=== PATIENT | female | born 1940 | race Caucasian/White ===

== ENCOUNTER 2023-12-10 14:38 | Outpatient (CLI) | payer MEDICARE, SELFPAY ==
--- NOTE | ~2023-12-10 | CT_ITS ---
EXAMINATION: CT abdomen pelvis w con DATE: 12/10/2023 15:33 INDICATION: Abnormal weight loss. Lower mid abdominal pain. Nausea. Constipation. TECHNIQUE: Computed tomography (CT) of the abdomen and pelvis was performed with 100 CC Omnipaque 350 intravenous contrast. Automated exposure control and iterative reconstruction technique were employe d. Exam dose: 225.43 mGy-cm total exam DLP. COMPARISON: None. FINDINGS: Status post sternotomy. The lung bases are clear of infiltrate or consolidation. Heart size is within normal limits. Moderate sliding hiatal hernia There is mild intrahepatic and extrahepatic bile duct dilatation likely secondary to cholecystectomy. No hepatic space-occupying mass lesion. No pancreatic duct dilatation or pancreatic mass lesion or calcification is detected. Multiple splenic calcified granulomas. No splenomegaly. 8 mm upper pole left renal cyst. Scattered right renal cysts, largest exophytic at the posterior upper pole, measuring up to 2 cm. Nonobstructing lower pole left renal approximately 3.8 mm calculus. No ureteral calculus or hydroneph rosis is noted on either side. There are calcified uterine fibroids. There is extensive atherosclerotic calcification but no aneurysm of the abdominal aorta and iliac art eries. No intraperitoneal or retroperitoneal or pelvic mass lesion or adenopathy or ascites. Normal appendix. Diverticulosis of the colon; no CT evidence of diverticulitis. There is a prominent amount of fecal m aterial in the rectosigmoid area. There is fluid within multiple nondilated small bowel segments, with small bowel air-fluid levels. Degenerative changes of the thoracic and lumbar spine including multilevel severe degenerative disc d isease of the lumbar spine, with fusion and the vertebral bodies at L4-5. IMPRESSION: Nondilated fluid containing small bowel segments and small bowel air-fluid levels, possi rubina due to enteritis or mild adynamic ileus No bowel obstruction or free air Status post cholecystectomy Nonobstructing lower pole left renal calculus Bilateral renal cysts Uterine fibroids Prominent amount of fecal material in the rectum and colon Normal appendix Moderate sliding hiatal hernia Reviewed, dictated and finalized at [facility]. Reviewed, dictated and finalized at [facility]. [employer] OFFICER IMPRESSION: Nondilated fluid containing small bowel segments and small bowel a ir-fluid levels, possibly due to enteritis or mild adynamic ileus No bowel obstruction or free air Status post cholecystectomy Nonobstructing lower pole left renal calculus Bilateral renal cysts Uterine fibroids Prominent amount of fecal material in the rectum and colon Normal appendix Moderate sliding hiatal hernia
[2023-12-10 15:21] LABS: Estimated Glomerular Filt Rate 48
== END 2023-12-10 14:39 | disposition home or self-care (01) ==
PROVIDERS: PCP Internal Medicine; Visit Provider Nurse Practitioner Family
DX: N20.0 Calculus of kidney (principal); N28.1 Cyst of kidney, acquired; Z90.49 Acquired absence of other specified parts of digestive tract; D25.9 Leiomyoma of uterus, unspecified; K44.9 Diaphragmatic hernia without obstruction or gangrene
CPT/HCPCS: 74177; Q9967

== ENCOUNTER 2024-01-17 14:53 | Outpatient (CLI) | payer MEDICARE, SELFPAY ==
--- NOTE | ~2024-01-17 | XR_ITS ---
XR chest 2V 01/17/2024 15:19 Indication: Abnormal weight loss Procedure: 2 view chest Comparison: No prior studies for comparison. Findings: Status post median sternotomy for CABG. Heart size normal. No focal air space disease, pulm onary edema, pleural effusion or suspected pneumothorax. There is atherosclerosis of the aorta. There are cholecystectomy clips. There is scoliosis. Impression: 1: No acute cardiopulmonary disease. Reviewed, dictated and finalized at [facility]. PHOTOGRAPHER Impression: 1: No acute cardiopulmonary disease.
[2024-01-17 15:33] LABS: Hematocrit 38.3 % (37.0-47.0); Hemoglobin 12.1 g/dL (12.0-15.0); Mean Corpuscular HGB Conc 31.6 g/dl (32-36); Mean Corpuscular Hemoglobin 31.8 pg (26-34); Mean Corpuscular Volume 100.5 fl (80-100); Mean Platelet Volume 8.6 fl (7.4-10.4); Platelet Count Result 376 k/mm3 (150-375); Red Blood Count 3.81 M/mm3 (4.2-5.4); Red Cell Distribution Width 13.2 % (11.5-14.5); White Blood Count 6.4 K/mm3 (4.5-10.0)
[2024-01-17 15:49] LABS: Alanine Aminotransferase 14 U/L (6-35); Albumin Level 2.8 g/dL (3.5-5.1); Alkaline Phosphatase 87 U/L (38-126); Anion Gap 2 mmol/L (8-16); Aspartate Amino Transferase 30 U/L (14-36); Bilirubin,Total 0.5 mg/dL (0.2-1.3); Blood Urea Nitrogen 20 mg/dL (7-17); Calcium 8.7 mg/dL (8.4-10.2); Carbon Dioxide 30 mmol/L (22-30); Chloride 104 mmol/L (98-107); Estimated Glomerular Filt Rate > 60; Glucose 155 mg/dL (65-110); Potassium 3.4 mmol/L (3.4-5.0); Sodium 136 mmol/L (137-145)
[2024-01-17 16:01] LABS: Erythrocyte Sedimentation Rate 23 mm/hr (0-20)
== END 2024-01-17 14:54 | disposition home or self-care (01) ==
PROVIDERS: PCP Internal Medicine; Visit Provider Nurse Practitioner Family
DX: R63.4 Abnormal weight loss (principal)
CPT/HCPCS: 36415; 71046; 80053; 84443; 85027; 85652; 86140

== ENCOUNTER 2024-02-06 08:42 | Day surgery (SDC) | payer MEDICARE, SELFPAY ==
[2024-01-27 08:09] VITALS: BMI 21.4
[2024-01-27 11:42] VITALS: BMI 23.7
[2024-02-06 11:04] VITALS: BP 104/58; PULSE 77; RESP 20; TEMP 36.1; O2SAT 100
[2024-02-06] MEDS: LACTATED RINGERS 1,000 ML 150 ML IV CONT (11:17)
[2024-02-06 11:23] LABS: Glucose Point of Care 82 mg/dl (65-105)
--- NOTE | 2024-02-06 11:24 | WPDHPUPDATE1 ---
History and Physical Update Update Date/Time: 02/06/24 11:24 In use to have a very difficult history. She states that she vomits on some occasions also complete reports difficulty swallowing. It is difficult to know if food actually makes it to her stomach. Previous endoscopy apparently was performed because of a hiatal hernia. A questionable history of hiatal hernia repair surgically in the past. Plan for EGD continue trial of medications as outlined in the GI office. Further recommendations after endoscopy. History and Physical has been reviewed, including an updated exam of the patient. There are NO changes in the patient's condition. Risks, benefits, and alternatives have been discussed and questions answered. Patient agrees to proceed with procedure.
--- NOTE | 2024-02-06 11:41 | WPDANESEPPF ---
Anes - Initial Pre Proc Eval Procedure: Operation Date: 02/06/24 12:00 Proposed Procedures p Esophagogastroduodenoscopy - Dawson Parmar MD Date/Time: 02/06/24 11:41 Surgeon: Dawson Parmar MD Pre Op Diagnosis: Vomitting,unspecified,abnormal weight loss Patient Data Age: 83 Gender: F Height: 1.42 m Weight: 46.2 kg Last Vital Signs Temp 36.1 C L 02/06/24 11:04 Pulse 77 02/06/24 11:04 Resp 20 02/06/24 11:04 BP 104/58 L 02/06/24 11:04 Pulse Ox 100 02/06/24 11:04 O2 Del Method Room Air 02/06/24 11:04 Allergies Allergy/AdvReac Type Severity Reaction Status Date / Time No Known Allergies Allergy Verified 02/06/24 11:03 Home Medications Medication Instructions Recorded Confirmed Type aspirin 81 mg tablet,delayed 81 mg PO DAILY 11/28/23 02/06/24 History release (Adult Aspirin Regimen) gabapentin 100 mg capsule 100 mg PO BID 11/28/23 02/06/24 History (Neurontin) multivitamin 1 tablet PO DAILY 11/28/23 02/06/24 History omega-3 fatty acids-fish oil 360 1 cap PO DAILY 11/28/23 02/06/24 History mg-1,200 mg capsule (Fish Oil) pramipexole 0.125 mg tablet 0.125 mg PO BID 11/28/23 02/06/24 History (Mirapex) spironolactone 25 mg tablet 25 mg PO DAILY 11/28/23 02/06/24 History vitamin A-vitamin C-vitamin E 1 tablet PO DAILY 11/28/23 02/06/24 History omeprazole 40 mg capsule,delayed 40 mg PO BID 1 month #60 caps 01/20/24 02/06/24 Rx release potassium chloride 20 mEq 20 meq PO BID 01/27/24 02/06/24 History tablet,extended release Laboratory Tests 02/06/24 11:21 POC Capillary Glucose 82 mg/dl (65-105) Patient hx anesthesia problems: none Family hx anesthesia problems: none Results Review: All pre-operative results and documents have been reviewed as part of the pre-operative evaluation. [facility] Past Medical History Medical History Gastroparesis GERD (gastroesophageal reflux disease) HTN (hypertension) Vomiting Weight loss Social History Social History Smoking status: Never smoker Alcohol intake: never Substance use: never Substance use type: does not use Living arrangements: alone Spiritual care concerns: No Anes - Eval Final PreProcedure Day of Procedure 02/06/24 11:41 Patient weight: thin Heart: regular rate and rhythm Lungs: clear to auscultation Neurological: alert and oriented Last oral intake: >/= 8 hours ASA classification: III Emergent: no Anesthetic plan: proceed Anesthesia type and monitoring: general GIVS and standard monitoring Results Review: All pre-operative results and documents have been reviewed as part of the pre-operative evaluation. Informed Consent: The patient's anesthetic plan and its attendant risks and benefits were discussed with the patient/family/POA. Questions were solicited and answers provided to the satisfaction of the patient/family/POA.
[2024-02-06 13:13] VITALS: BP 87/52; PULSE 80; RESP 18; O2SAT 93
[2024-02-06 13:23] VITALS: BP 108/62; PULSE 87; RESP 18; O2SAT 93
--- NOTE | 2024-02-06 13:27 | WPDANESPN ---
Anes - Prog Note Post-Op Date/Time: 02/06/24 13:27 Cardiovascular status: normal Respiratory status: normal Airway patency: baseline Mental status: baseline Post-Op hydration status: normal Vital Signs: Last Vital Signs Temp 36.1 C L 02/06/24 11:04 Pulse 87 02/06/24 13:23 Resp 18 02/06/24 13:23 BP 108/62 02/06/24 13:23 Pulse Ox 93 02/06/24 13:23 O2 Del Method Room Air 02/06/24 13:23 Pain Score (VAS): 0 I/O: Intake & Output 02/05/24 02/06/24 02/06/24 23:59 07:59 15:59 Intake Total 300 Balance 300 02/06/24 11:21 POC Capillary Glucose 82 Patient Feedback: Patient satisfied with anesthetic care.
[2024-02-06 13:33] VITALS: BP 117/69; PULSE 94; RESP 20; O2SAT 94
== END 2024-02-06 13:48 | disposition home or self-care (01) ==
PROVIDERS: PCP Internal Medicine; Visit Provider Internal Medicine Gastroenterology
PROC: 0DJ08ZZ Inspection of Upper Intestinal Tract, Via Natural or Artificial Opening Endoscopic (ICD-10-PCS; CPT 43235; principal; 2024-02-06 12:00)
DX: K31.84 Gastroparesis (principal); R11.10 Vomiting, unspecified; K21.9 Gastro-esophageal reflux disease without esophagitis; R13.19 Other dysphagia
CPT/HCPCS: 43235

== ENCOUNTER 2025-03-17 16:38 | Outpatient (CLI) | payer MEDICARE, SELFPAY ==
--- NOTE | ~2025-03-17 | XR_ITS ---
Exam: Abdomen 1V HISTORY: R19.7 - Diarrhea, unspecified COMPARISON: Reference is made to a CT examination of the abdomen and pelvis dated 12/10/2023 TECHNIQUE: Supine images of the abdomen FINDINGS: Bowel gas pattern is nonspecific and non-obstructive. There is no free air or deep sulci. No pathologic calcifications are seen. Lung bases are unremarkable. Degenerative disease within the lower lumbar spine. Clips within the right upper quadrant. Fecal stasis within the descending colon. IMPRESSION: Nonspecific, nonobstructive bowel gas pattern. Reviewed, dictated and finalized at location A.
--- OUTSIDE RECORDS SUMMARY | 2025-03-17 17:43 | XMS_ITS | Data Portability ---
Author Organization [facility], Main Office Address [address] [place] [address] Care Team Providers Care Orthopedic Nurse Practitioner Name Role Phone DONOVAN CARDENAS Primary Care Provider [phone] DONOVAN CARDENAS Referring Provider Assessment Encounter Date Assessment Date Assessment LastModified by Organization Details LastModified Time 09/02/2024 09/02/2024 This note is dictated and transcribed by [employer]. Cleaner Assistant variances may occur. Despite proofreading, typographical errors may occur. Occasional wrong-word or 'wtxav-u-[id number]' substitutions may have occurred due to the inherent limitations of voice recording. Read the chart carefully and recognize, using context, where substitutions have occurred. Not available 09/10/2024 09:49:21 09/09/2024 09/09/2024 This note is dictated and transcribed by [employer]. Cleaner Assistant variances may occur. Despite proofreading, typographical errors may occur. Occasional wrong-word or 'mwfjo-c-zmmf' substitutions may have occurred due to the inherent limitations of voice recording. Read the chart carefully and recognize, using context, where substitutions have occurred. Not available 09/10/2024 09:44:39 09/16/2024 09/16/2024 This note is dictated and transcribed by [employer]. Cleaner Assistant variances may occur. Despite proofreading, typographical errors may occur. Occasional wrong-word or 'tutgs-t-sjth' substitutions may have occurred due to the inherent limitations of voice recording. Read the chart carefully and recognize, using context, where substitutions have occurred. Not available 09/26/2024 15:12:45 Plan of Treatment Reminders Order Date Submit Date Provider Last Modified By Organization Details Last Modified Time Details Appointments None recorded. Lab magnesium, serum or plasma 2024 025 [id number] [facility], [address] [place], [address], 5 17:16:14 vitamin B12, serum 2024 025 [id number] [facility], [address] [place], [address], 5 17:16:14 lipid panel, serum 2024 025 [email or web address] [facility], [address] [place], [address], 5 17:16:13 CMP, serum or plasma 2024 025 [id number] [facility], [address] [place], [address], 5 17:16:13 TSH, serum or plasma 2024 025 [email or web address] [facility], [address] [place], [address], 5 17:16:14 T4, free, serum 2024 025 [facility], [address] [place], [address], 5 17:16:14 CBC w/ auto diff 2024 025 [email or web address] [facility], [address] [place], [address], 5 17:16:14 Referral None recorded. Procedures None recorded. Surgeries None recorded. Imaging None recorded. Medication Orders cephalexin 500 mg capsule [email or web address] [place] [address] Pharm[facility], [address] [place], [address], 14:19:08 Patient TargetsNo targets recorded. Patient Instructions Encounter Date Encounter Id Patient Instructions Last Modified By Organization Details Last Modified Time 08/31/2024 [id number] Follow-up an ry artery disease, hypertension, hyperlipidemia, peripheral vascular disease, type 2 diabetes all clinically stable. Also has a laceration on her left arm is some avulsion of the skin as result of an animal scratch. No signs of any surrounding infection at this time. Denies any history of any fever or chills. Will cover with some cephalexin 500 mg t.i.d. For seven days. Follow Up: 4 Months Approximate Date: 12/29/2024 Portions of the record may have been created with voice recognition software. Occasional wrong-word or cehoz-t-nyan substitutions may have occurred due to the inherent limitations of voice recognition software. Read the chart carefully and recognize, using context, where substitutions have occurred. [email or web address] Not available 08/31/2024 17:00:38 01/04/2025 [id number] Coronary artery disease, essential hypertension, hyperlipidemia, GERD all clinically stable. Will check some baseline blood work including a CBC, CMP, lipid, vitamin B12 and magnesium level. Continue on current Rx. Did instruct patient to consider taking some Imodium for some intermittent diarrhea. Is clinically stable otherwise. Follow-up in four months Follow Up: 4 Months Approximate Date: 05/04/2025 Portions of record are template driven. When necessary additional context will be provided. Additionally some portions have been created with voice recognition software. Occasional wrong-word or [id number]-l-[id number] substitutions may have occurred due to the inherent limitations of voice recognition software. Read the chart carefully and recognize, using context, where substitutions may have occurred. Created: Donovan Cardenas M.D. 01.04.2025 04:04 Not available 01/04/2025 17:05:24 Reason for Referral None Reported. Results Created Date Observation Date Name Description Value Unit Range Abnormal Flag Note LastModifiedBy Organization Detail LastModifiedTime 01/22/20 25 01/22/2025 CBC/C OMPLE TE BLD COUNT W/DIF F white blood cells 9.6 x10'3 /uL 4.2-[address] [facility] (Lab) [address] [place], [address], 01/22/2025 16:46:39 01/22/20 25 01/22/2025 CBC/C OMPLE TE BLD COUNT W/DIF F red blood cells 4.00 x10'6 /uL 3.80-[address] [facility] (Lab) [address] [place], [address], 01/22/2025 16:46:39 01/22/20 25 01/22/2025 CBC/C OMPLE TE BLD COUNT W/DIF F hemoglobin 13.1 g/dL 12.0-[address] [facility] (Lab) [address] [place], [address], 01/22/2025 16:46:39 01/22/20 25 01/22/2025 CBC/C OMPLE TE BLD COUNT W/DIF F hematocrit 40.0 % 35.7-[address] [facility] (Lab) [address] [place], [address], 01/22/2025 16:46:39 01/22/20 25 01/22/2025 CBC/C OMPLE TE BLD COUNT W/DIF F mean red cell volume 100.0 fL 82.0-9 [address] [facility] (Lab) [address] [place], [address], 01/22/2025 16:46:39 01/22/20 25 01/22/2025 CBC/C OMPLE TE BLD COUNT W/DIF F mean red cell hemoglobin 32.8 pg 27.0-[address] [facility] (Lab) [address] [place], [address], 01/22/2025 16:46:39 01/22/20 25 01/22/2025 CBC/C OMPLE TE BLD COUNT W/DIF F mean RBC HGB concentratio n 32.8 g/dL 31.0-[address] [facility] (Lab) [address] [place], [address], 01/22/2025 16:46:39 01/22/20 25 01/22/2025 CBC/C OMPLE TE BLD COUNT W/DIF F red cell distribution width 14.0 % 11.8-[address] [facility] (Lab[facility] [address] [facility] [place], [address], 01/22/2025 16:46:39 01/22/20 25 01/22/2025 CBC/C OMPLE TE BLD COUNT W/DIF F platelets 291 x10'3 /uL 150-[address] [facility] (Lab) [address] [facility] [place], [address], 01/22/2025 16:46:39 01/22/20 25 01/22/2025 CBC/C OMPLE TE BLD COUNT W/DIF F mean platelet volume 9.2 fL 9.0-[address] [facility] (Lab) [address] [place], [address], 01/22/2025 16:46:39 01/22/20 25 01/22/2025 CBC/C OMPLE TE BLD COUNT W/DIF F neutrophils 63.7 % 39.0-[address] [facility] (Lab) [address] [place], [address], 01/22/2025 16:46:39 01/22/20 25 01/22/2025 CBC/C OMPLE TE BLD COUNT W/DIF F lymphocytes 27.4 % 16.0-[address] [facility] (Lab) [address] [place], [address], 01/22/2025 16:46:39 01/22/20 25 01/22/2025 CBC/C OMPLE TE BLD COUNT W/DIF F monocytes 6.7 % 5.0-[address] [facility] (Lab) [address] [place], [address], 01/22/2025 16:46:39 01/22/20 25 01/22/2025 CBC/C OMPLE TE BLD COUNT W/DIF F eosinophils 0.9 % 1.0-7. [address] [facility] (Lab) [address] [place], [address], 01/22/2025 16:46:39 01/22/20 25 01/22/2025 CBC/C OMPLE TE BLD COUNT W/DIF F basophils 0.6 % 0.0-2. [address] [facility] (Lab) [address] [place], [address], 01/22/2025 16:46:39 01/22/20 25 01/22/2025 CBC/C OMPLE TE BLD COUNT W/DIF F immature granulocytes 0.7 % 0.00-0 [address] [facility] (Lab) [address] [place], [address], 01/22/2025 16:46:39 01/22/20 25 01/22/2025 CBC/C OMPLE TE BLD COUNT W/DIF F neutrophils, absolute count 6.09 x10'3 /uL 1.5-8. [address] [facility] (Lab) [address] [place], [address], 01/22/2025 16:46:39 01/22/20 25 01/22/2025 CBC/C OMPLE TE BLD COUNT W/DIF F lymphocytes, absolute count 2.62 x10'3 /uL 1.07-[address] [facility] (Lab) [address] [place], [address], 01/22/2025 16:46:39 01/22/20 25 01/22/2025 CBC/C OMPLE TE BLD COUNT W/DIF F monocytes, absolute count 0.64 x10'3 /uL 0.29-[address] [facility] (Lab) [address] [place], [address], 01/22/2025 16:46:39 01/22/20 25 01/22/2025 CBC/C OMPLE TE BLD COUNT W/DIF F eosinophils, absolute count 0.09 x10'3 /uL 0.02-[address] [facility] (Lab) [address] [place], [address], 01/22/2025 16:46:39 01/22/20 25 01/22/2025 CBC/C OMPLE TE BLD COUNT W/DIF F basophils, absolute count 0.06 x10'3 /uL 0.01-[address] [facility] (Lab) [address] [place], [address], 01/22/2025 16:46:39 01/22/20 25 01/22/2025 CBC/C OMPLE TE BLD COUNT W/DIF F immature granulocytes ,absolute 0.07 x10'3 /uL 0.00-0 [address] [facility] (Lab) [address] [place], [address], 01/22/2025 16:46:39 01/22/20 25 01/22/2025 CBC/C OMPLE TE BLD COUNT W/DIF F nucleated red blood cells 0.0 % -0 Not Available [facility] (Lab) [address] [place], [address], 01/22/2025 16:46:39 01/22/20 25 01/22/2025 CBC/C OMPLE TE BLD COUNT W/DIF F NRBC# 0.00 x10'3 /uL Not Available [facility] (Lab) [address] [place], [address], 01/22/2025 16:46:39 01/22/20 25 01/22/2025 LIPID PANEL cholesterol 129 mg/dL 140-19 9 low NIH HUBER NSUS RECOM MENDA TION FOR BELIA STERO L: ADULT CHILD LOW RISK: <200 <170 BORDE RLINE : <200- 239 ----- HIGH RISK: >240 >200 Not Available [facility] (Lab) [address] [place], [address], 01/22/2025 17:05:40 01/22/20 25 01/22/2025 LIPID PANEL triglyceride s 194 mg/dL 0-150 high NIH HUBER NSUS REPOR T RECOM MENDA TION FOR TRIGL YCERI ESTRELLITA: ADULT CHILD LOW RISK: <150 ----- BODER LINE: 150-1 99 ----- HIGH RISK: >200 ----- Not [address] [facility] (Lab) [address] [place], [address], 01/22/2025 17:05:40 01/22/20 25 01/22/2025 LIPID PANEL HDL cholesterol 35 mg/dL 40- low Not Available [facility] (Lab) [address] [place], [address], 01/22/2025 17:05:40 01/22/20 25 01/22/2025 LIPID PANEL LDL cholesterol, calculated 55 mg/dL 0-130 NIH HUBER NSUS REPOR T RECOM MENDA TIONS FOR LDL: ADULT CHILD LOW RISK <130 <110 (OPTI MAL LDL) <100 ----- BORDE RLINE : 130-1 59 ----- HIGH RISK: >160 >130 A TRIGL YCERI DE RESUL T >400 INVAL IDATE S THE CALCU LATIO N FOR LDL FRACT IONAT ION - THE LDL RESUL T WILL NOT BE REPOR CURTIS. Not Available [facility] (Lab) [address] [place], [address], 01/22/2025 17:05:40 01/22/20 25 01/22/2025 COMPR EHENS APARNA METAB OLIC PANEL sodium 136 mmol/ L 137-14 5 low Not Available [facility] (Lab) [address] [place], [address], 01/22/2025 17:05:46 01/22/20 25 01/22/2025 COMPR EHENS APARNA METAB OLIC PANEL potassium 4.2 mmol/ L 3.5-5. 1 Not Available [facility] (Lab) [address] [place], [address], 01/22/2025 17:05:46 01/22/20 25 01/22/2025 COMPR EHENS APARNA METAB OLIC PANEL chloride 104 mmol/ L 98-[address] [facility] (Lab) [address] [place], [address], 01/22/2025 17:05:46 01/22/20 25 01/22/2025 COMPR EHENS APARNA METAB OLIC PANEL carbon dioxide 28 mmol/ L 22-30 Not Available [facility] (Lab) [address] [place], [address], 01/22/2025 17:05:46 01/22/20 25 01/22/2025 COMPR EHENS APARNA METAB OLIC PANEL anion gap 8.2 mmol/ L 14-22 low Not Available [facility] (Lab) [address] [place], [address], 01/22/2025 17:05:46 01/22/20 25 01/22/2025 COMPR EHENS APARNA METAB OLIC PANEL glucose 81 mg/dL 70-[address] [facility] (Lab) [address] [place], [address], 01/22/2025 17:05:46 01/22/20 25 01/22/2025 COMPR EHENS APARNA METAB OLIC PANEL BUN 20 mg/dL 8-[address] [facility] (Lab) [address] [place], [address], 01/22/2025 17:05:46 01/22/20 25 01/22/2025 COMPR EHENS APARNA METAB OLIC PANEL creatinine 0.75 mg/dL 0.66-[address] [facility] (Lab) [address] [place], [address], 01/22/2025 17:05:46 01/22/20 25 01/22/2025 COMPR EHENS APARNA METAB OLIC PANEL GFR >60 Refer ence Range : [place] ge GFR Healt hy Adult : >60 mL/mi n/1.7 3 m2 Chron ic Kidne y Disea se: 15-60 mL/mi n/1.7 3 m2 Kidne y Failu re: <15/m L/min /1.73 m2 www.n iddk. nih.g ov The MDRD study equat ion has not been valid ated in child reinier <18 years of age; pregn ant women ; the elder ly >85 years of age; or in some racia l or ethni c subgr oups, such as [employer]. Outsi de the valid ated chadwick eters , estim ated GFR is less accur ate, requi ring clini balbir judgm ent on a case- by-ca se basis . Clini balbir inter preta tion for other races and ages must be made by the clini ruiz. The MDRD study equat ion has not been valid ated for the evalu ation of serum creat inine relat ed to nutri dawn l statu s or medic ation usage . For perso ns <18 years of age, a pedia tric GFR calcu lator is avail able on the F websi te: https ://ww w.kid alvin.o rg/pr ofess ional s/kdo qi/gf r_cal culat or Not Available [facility] (Lab) [address] [place], [address], 01/22/2025 17:05:46 01/22/20 25 01/22/2025 COMPR EHENS APARNA METAB OLIC PANEL alkaline phosphatase 88 U/L 38-126 Not Available [facility] (Lab) [address] [place], [address], 01/22/2025 17:05:46 01/22/20 25 01/22/2025 COMPR EHENS APARNA METAB OLIC PANEL alanine aminotransfe rase 16 U/L 0-35 Not Available [facility] (Lab) [address] [place], [address], 01/22/2025 17:05:46 01/22/20 25 01/22/2025 COMPR EHENS APARNA METAB OLIC PANEL aspartate aminotransfe rase 26 U/L 15-37 Not Available [facility] (Lab) [address] [place], [address], 01/22/2025 17:05:46 01/22/20 25 01/22/2025 COMPR EHENS APARNA METAB OLIC PANEL bilirubin, total 1.20 mg/dL 0.20-[address] [facility] (Lab) [address] [place], [address], 01/22/2025 17:05:46 01/22/20 25 01/22/2025 COMPR EHENS APARNA METAB OLIC PANEL calcium 9.3 mg/dL 8.4-[address] [facility] (Lab) [address] [place], [address], 01/22/2025 17:05:46 01/22/20 25 01/22/2025 COMPR EHENS APARNA METAB OLIC PANEL total protein 5.9 g/dL 6.3-8. [address] [facility] (Lab) [address] [place], [address], 01/22/2025 17:05:46 01/22/20 25 01/22/2025 COMPR EHENS APARNA METAB OLIC PANEL albumin 3.3 g/dL 3.0-4. [address] [facility] (Lab) [address] [place], [address], 01/22/2025 17:05:46 01/22/20 25 01/22/2025 COMPR EHENS APARNA METAB OLIC PANEL globulin 2.6 g/dL 2.6-4. [address] [facility] (Lab) [address] [place], [address], 01/22/2025 17:05:46 01/22/20 25 01/22/2025 COMPR EHENS APARNA METAB OLIC PANEL A/G ratio 1.3 ratio 1.0-2. [address] [facility] (Lab) [address] [place], [address], 01/22/2025 17:05:46 01/22/20 25 01/22/2025 MAGNE SIUM magnesium 1.4 mg/dL 1.6-2. [address] [facility] (Lab) [address] [place], [address], 01/22/2025 17:05:48 01/22/20 25 01/22/2025 T4 FREE free T4 0.89 NG/dL 0.78-[address] [facility] (Lab) [address] [place], [address], 01/22/2025 17:41:36 01/22/20 25 01/22/2025 TSH thyroid-stim ulating hormone 0.700 uIU/m L 0.465- 4.[address] [facility] (Lab) [address] [place], [address], 01/22/2025 17:56:33 01/22/20 25 01/22/2025 VITAM IN B12 (SHIVAM LASHON ) vb12 513 pg/mL 239-[address] [facility] (Lab) [address] [place], [address], 01/22/2025 18:18:47 Result Notes None recorded. Problems Name Problem SNOMED Code Status Onset Date Resolution Date Notes Provider Name and Address Organization Details Recorded Time Renewal of prescript ion Active 2021 Not Available [facility] 3 00:01:24 Hyperchol esterolem ia 81112487 Active Not Available [facility] 3 00:01:24 Nausea and vomiting 86791218 Active 2021 Not Available [facility] 3 00:01:24 Senile osteoporo sis 24433400 Active 2022 Not Available [facility] 3 00:01:24 Gastroeso phageal reflux disease 614555174 Active Not Available [facility] 3 00:01:24 Type 2 diabetes mellitus without complicat ion 681318044 Active 2021 Not Available [facility] 3 00:01:24 Restless legs 75714652 Active Not Available [facility] 3 00:01:24 Osteoarth ritis 014083433 Active Not Available [facility] 3 00:01:24 Periphera l vascular disease 804134381 Active Not Available [facility] 3 00:01:24 Nausea 956402228 Active 2021 Not Available [facility] 3 00:01:24 Type 2 diabetes mellitus 31898568 Active Not Available [facility] 3 00:01:24 Achalasia of esophagus 84308674 Active Not Available [facility] 3 00:01:24 Pain of right knee joint 88000897513 4100 Active 2021 Not Available [facility] 3 00:01:24 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 33645298 Active 2018 Not Available [facility] 3 00:01:24 Coronary arteriosc lerosis 18448117 Active Not Available [facility] 3 00:01:24 Essential hypertens ion 11926870 Active 2022 Not Available [facility] 3 00:01:24 Osteoporo sis 94739932 Active 2022 Not Available [facility] 3 00:01:24 Diabetes mellitus 45959641 Completed Not Available [facility] 3 14:49:48 Diabetes mellitus without complicat ion 519748425 Active 2022 Not Available [facility] 3 00:01:24 Heart disease 69814644 Active 2023 Karolyn watters, [facility] [employer] [facility] 4 16:23:06 Sleep disorder 38877743 Active 2023 Karolyn watters, [facility] [employer] [facility] 4 16:23:20 Pain in both feet 62905269214 875305 Active 2023 Demetrius Negron DPM [address], [address], [place], [address] , [facility] [employer] [facility] 4 17:07:49 Bunion 309927428 Active 2023 Demetrius Negron DPM [address], [address], [place], [address] , [facility] [employer] [facility] 4 17:07:56 Periphera l arterial occlusive disease 249560577 Active 2023 Demetrius Negron DPM [address], [address], [place], [address] , [facility] [employer] [facility] 4 17:08:05 Ulcer of toe 075292435 Active 2023 Demetrius Negron DPM [address], [address], [place], [address] , [facility] [employer] 4 17:13:41 Dystrophi a unguium 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 Active 2023 Demetrius Negron DPM [address], [address], [place], [address] , [facility] [employer] [facility] 4 17:15:25 Bunion 490150827 Active 2023 Demetrius Negron DPM [address], [address], [place], [address] , [facility] [employer] [facility] 4 17:13:50 Celluliti s of left lower limb 38382264781 690645 Active 2023 Donovan Cardenas MD [address], [address], [place], [address] , [facility] 4 16:52:06 Skin eschar 542652390 Active 2023 Demetrius Negron DPM [address], [address], [place], [address] , [facility] 4 10:07:36 Open wound of left lower leg 26993389843 422205 Active 2023 Demetrius Negron DPM [address], [address], [place], [address] , [facility] 4 10:07:59 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 105870307 Active 2023 Demetrius Negron DPM [address], [address], [place], [address] , [facility] 4 10:08:29 Periphera l venous insuffici ency 81802555 Active 2023 Demetrius Negron DPM [address], [address], [place], [address] , [facility] 4 10:08:38 Celluliti s of lower limb 614575686 Active 2023 IRINEO Enriquez, [facility] 4 16:39:07 Celluliti s of upper limb 118977046 Active 2023 Donovan Cardenas MD [address], [address], [place], [address] , [facility] 4 17:00:08 Ulcer of toe 551077240 Active 2023 Demetrius Negron DPM [address], [address], [place], [address] , [facility] 4 09:45:08 Pressure injury of toe of left foot stage II 05159766881 4107 Active 2023 Demetrius Negron DPM [address], [address], [place], [address] , [facility] [employer] [facility] 4 09:45:56 Cough 87064668 Active 2023 Donovan Cardenas MD [address], [address], [place], [address] , [facility] 4 14:22:04 Gastroeso phageal reflux disease without esophagit is 441584943 Active 2023 Gila Alvarado CMA null, [facility] 4 14:20:48 Hypomagne semia 754556839 Active 2024 Gila Alvarado CMA null, [facility] 5 15:18:18 Notes:Some problems listed i n Document: #[id number] could not be added to this patient's chart. Please review this document and add these problems to the patient's chart manually as needed. Problem Notes None recorded. Procedures Surgical History Date Name Laterality Status Provider Name and Address Organization Details Recorded Time 4 Wound Care-Podiatry completed Demetrius Negron DPM [address], [address], [place], [address], [facility] [employer] 09/26/2024 15:12:36 4 Wound Care-Podiatry completed Demetrius Negron DPM [address], [address], [place], [address], [facility] [employer] 09/10/2024 09:44:24 4 Wound Care-Podiatry completed Yolette Gonzalez RN [facility] [employer] 09/02/2024 16:50:42 4 Wound Care-Podiatry completed Demetrius Negron DPM [address], [address], [place], [address], [facility] [employer] 08/26/2024 16:56:19 4 Wound Care-Podiatry completed Yolette Gonzalez RN [place] [facility] [employer] 08/19/2024 17:11:57 4 Wound Care-Podiatry completed Demetrius Negron DPM [address], [address], [place], [address], [facility] [employer] 07/23/2024 10:07:26 4 Nail Debridement completed Demetrius Negron DPM [address], [address], [place], [address], [facility] [employer] [facility] [employer] 06/29/2024 09:54:44 4 Medicare Wellness CPT Code, subsequent completed Leanne Serrano RN [facility] [employer] 03/02/2024 16:37:19 4 Nail Debridement completed Demetrius Negron DPM [address], [place], [address], [employer] [facility] [employer] 12/19/2023 17:07:34 Imaging Results None recorded. Procedure Notes None recorded. Medical Equipment None Reported. Allergies Allergen ID Allergen Name Allergen Category Reaction Reaction Severity Criticality Documentation Date Start Date Code Code System Note Provider Name and Address Organization Details Recorded Time 49558 Product containin g 3-hydroxy -3-methyl glutaryl- coenzyme A reductase inhibitor (product) medicatio n myalgias (muscle pain) moderate Not available 01/23/2023 94413 009 SNOMED Not Available [facility] 3 14:53:55 Medications Name Sig Start Date Stop Date Status Note LastModified by Organization Details LastModified Time Zocor 20 mg tablet Take 1 tablet every day by oral route. 2013 active Not Available Not Available Not Avai lable amoxicillin 500 mg capsule Take 1 capsule 3 times a day by oral route for 10 days. 01/21 completed Not Available Not Available Not Available latanoprost 0.005 % eye drops INSTILL 1 DROP INTO EACH EYE AT NIGHT active Not Available Not Available No t Available Tylenol-Cod eine #4 300 mg-60 mg tablet Take 1 tablet every 6 hours by oral route. 04/03 completed Not Available Not Available Not Available Altace 5 mg capsule Take 1 capsule every day by oral route. 2013 active Not Available Not Available Not Avai lable rabeprazole 20 mg tablet,pardeep yed release TAKE 1 TABLET BY MOUTH TWICE DAILY active Not Available Not Available No t Available doxycycline hyclate 100 mg capsule TAKE 1 CAPSULE BY MOUTH TWICE DAILY 07/09 completed Not Available Not Available Not Available atorvastati n 20 mg tablet Take 1 tablet every day by oral route. 12/05 completed Not Available Not Available Not Available clindamycin HCl 300 mg capsule Take 1 capsule every 6 hours by oral route. 12/05 completed Not Available Not Available Not Available Vitamin C 500 mg tablet Take 1 tablet every day by oral route. 12/05 completed Not Available Not Available Not Available azithromyci n 250 mg tablet TAKE 2 TABLETS BY MOUTH ON DAY 1 AND THEN TAKE 1 TABLET BY MOUTH ONCE A DAY ON DAY 2 THROUGH DAY 5 02/06 completed Not Available Not Available Not Available aspirin 325 mg tablet Take 1 tablet every day by oral route. 2013 active Not Available Not Available Not Avai lable ofloxacin 0.3 % eye drops active Not Available Not Available Not Available benzonatate 200 mg capsule Take 1 capsule 3 times a day by oral route. 2023 active Not Available Not Available Not Avai lable Coreg 6.25 mg tablet Take 1 tablet every day by oral route. 2013 active Not Available Not Available Not Avai lable valacyclovi r 1 gram tablet Take 1 tablet 3 times a day by oral route. active Not Available Not Available No t Available Glucovance 5 mg-500 mg tablet Take 1 tablet twice a day by oral route. 2013 active Not Available Not Available Not Avai lable Lasix 40 mg tablet Take 1 tablet every day by oral route. 2013 active Not Available Not Available Not Avai lable ondansetron HCl 4 mg tablet take one tablet every six hours as needed 12/19 completed Not Available Not Available Not Available bupivacaine HCl 0.5 % (5 mg/mL) injection solution in office procedure , administe red by provider 02/08 completed Not Available Not Available Not Available isosorbide mononitrate ER 30 mg tablet,exte nded release 24 hr TAKE 1 TABLET BY MOUTH ONCE DAILY 04/01 completed Not Available Not Available Not Available alendronate 70 mg tablet Take 1 tablet by mouth once a week active Not Available Not Available No t Available lovastatin 40 mg tablet Take 1 tablet every day by oral route. 04/03 completed Not Available Not Available Not Available gabapentin 400 mg capsule TAKE 1 CAPSULE THREE TIMES A DAY active Not Available Not Available No t Available Diflucan 150 mg tablet Take 1 tablet every day by oral route. 12/05 completed Not Available Not Available Not Available Accu-Chek Softclix Lancets USE 1 TO CHECK GLUCOSE ONCE DAILY active Not Available Not Available No t Available promethazin e 6.25 mg-codeine 10 mg/5 mL syrup Take 5 ML EVERY 6 HOURS by oral route PRN for cough active Not Available Not Available No t Available erythromyci n 250 mg tablet,pardeep yed release 12/03 completed Not Available Not Available Not Available clopidogrel 75 mg tablet TAKE 1 TABLET BY MOUTH ONCE DAILY active Not Available Not Available No t Available omeprazole 40 mg capsule,del ayed release take one capsule daily active Not Available Not Available No t Available aspirin 81 mg tablet,pardeep yed release Take 1 tablet every day by oral route. 2023 active Not Available Not Available Not Avai lable tramadol 50 mg tablet TAKE 1 TABLET BY MOUTH AT BEDTIME NEEDED FOR LEG PAIN active Not Available Not Available No t Available spironolact one 25 mg tablet TAKE 1 TABLET BY MOUTH TWICE DAILY 2024 active Not Available Not Available Not Avai lable pentoxifyll ine ER 400 mg tablet,exte nded release 02/06 completed Not Available Not Available Not Available glimepiride 2 mg tablet TAKE 1 TABLET EVERY DAY 12/19 completed Not Available Not Available Not Available Prevacid 30 mg capsule,del ayed release Take 1 capsule every day by oral route. 2013 active Not Available Not Available Not Avai lable ketorolac 0.5 % eye drops active Not Available Not Available Not Available potassium chloride ER 20 mEq tablet,exte nded release(par t/cryst) TAKE ONE TABLET DAILY WITH WATER active Not Available Not Available No t Available prednisolon e acetate 1 % eye drops,suspe nsion active Not Available Not Available Not Available magnesium oxide 400 mg (241.3 mg magnesium) tablet TAKE 1 TABLET BY MOUTH ONCE DAILY active Not Available Not Available No t Available metoclopram josue 5 mg tablet TAKE 1 TABLET BY MOUTH 4 TIMES DAILY active Not Available Not Available No t Available Kenalog 10 mg/mL suspension for injection In office injection administe red by the provider 06/04 completed [facility]: [phone] Not Available Not Available Not Available hydrocodone 7.5 mg-acetamin ophen 325 mg tablet TAKE 1 TABLET BY MOUTH EVERY 6 HOURS NEEDED 06/04 completed Not Available Not Available Not Available cephalexin 500 mg capsule Take 1 capsule 3 times a day by oral route. 09/02 completed Not Available Not Available Not Available metformin 1,000 mg tablet take one tablet by mouth twice daily 2023 active Not Available Not Available Not Avai lable Pravachol 20 mg tablet Take 1 tablet every day by oral route. 04/03 completed Not Available Not Available Not Available pramipexole 0.125 mg tablet take one tablet BID by mouth active Not Available Not Available No t Available nitroglycer in 0.4 mg sublingual tablet DISSOLVE ONE TABLET UNDER THE TONGUE EVERY 5 MINUTES NEEDED FOR CHEST PAIN. DO NOT EXCEED A TOTAL OF 3 DOSES IN 15 MINUTES 12/19 completed Not Available Not Available Not Available Xylocaine 20 mg/mL (2 %) injection solution In office injection administe red by the provider 06/04 completed Not Available Not Available Not Available omeprazole 20 mg capsule,del ayed release Take 1 capsule twice a day by oral route. 2013 active Not Available Not Available Not Avai lable gentamicin 0.1 % topical cream APPLY A SMALL AMOUNT TOPICALLY TO TOE ULCER THREE TIMES A DAY active Not Available Not Available No t Available Levaquin 500 mg tablet Take 1 tablet every 24 hours by oral route. 12/05 completed Not Available Not Available Not Available gabapentin 100 mg capsule TAKE 1 CAPSULE BY MOUTH TWICE DAILY 2024 active Not Available Not Available Not Avai lable Promethegan 25 mg rectal suppository INSERT 1 SUPPOSITO RY BY RECTAL ROUTE EVERY 4-6 HOURS NEEDED FORNAUSEA AND VOMITING 12/03 completed Not Available Not Available Not Available Vitamin D2 1,250 mcg (50,000 unit) capsule TAKE ONE CAPSULE BY MOUTH ONCE A WEEK 12/05 completed Not Available Not Available Not Available ondansetron 4 mg disintegrat ing tablet DISSOLVE 1 TABLET IN MOUTH EVERY 8 HOURS NEEDED FOR NAUSEA AND VOMITING active Not Available Not Available No t Available cefdinir 300 mg capsule Take 1 capsule every 12 hours by oral route. 09/10 completed Not Available Not Available Not Available Lipitor 10 mg tablet Take 1 tablet every day by oral route. 2013 active Not Available Not Available Not Avai lable amoxicillin 875 mg-potassiu m clavulanate 125 mg tablet TAKE 1 TABLET BY MOUTH EVERY 12 HOURS FOR 10 DAYS 12/03 completed Not Available Not Available Not Available Zetia 10 mg tablet Take 1 tablet every day by oral route. 2013 active Not Available Not Available Not Avai lable Multivitami n 50 Plus tablet Take 1 tablet every day by oral route. 12/05 completed Not Available Not Available Not Available nitrofurant oin monohydrate /macrocryst als 100 mg capsule TAKE ONE CAPSULE BY MOUTH EVERY 12 HOURS 06/04 completed Not Available Not Available Not Available Vytorin 10 mg-40 mg tablet Take 1 tablet every day by oral route. 2013 active Not Available Not Available Not Avai lable Fish Oil 1200 three times a day 12/05 completed Not Available Not Available Not Available Levatol 4mg daily 04/03 completed Not Available Not Available Not Available Plavix 75 mg one daily 2013 active Not Available Not Available Not Avai lable lovastatin 05/22 completed Not Available Not Available Not Available Socrative Ultra2 Meter kit use to test bllod sugar every day active Not Available Not Available No t Available vitamin E (dl, acetate) 450 mg (1,000 unit) capsule Take 2 capsules every day by oral route. 12/05 completed Not Available Not Available Not Available Accu-Chek SmartView Control Solution use to test device monthly 12/05 completed Not Available Not Available Not Available dorzolamide -timolol (PF) 2 %-0.5 % eye drops in a dropperette INSTILL 1 DROP INTO AFFECTED EYE(S) BY OPHTHALMI C ROUTE 2 TIMES PER DAY 12/05 completed Not Available Not Available Not Available Easy Touch Alcohol Prep Pads USE DAILY active Not Available Not Available Not Available Vascepa 1 gram capsule TAKE 2 CAPSULES BY MOUTH TWICE DAILY 12/19 completed Not Available Not Available Not Available flaxseed 1,000 mg capsule Take 1 capsule every day by oral route. 12/05 completed Not Available Not Available Not Available potassium chloride ER 20 mEq tablet,exte nded release Take 1 tablet every day by oral route for 90 days. 2023 active Not Available Not Available Not Avai lable Jardiance 10 mg tablet TAKE 1 TABLET BY MOUTH ONCE DAILY active Not Available Not Available No t Available Praluent Pen 150 mg/mL subcutaneou s pen injector 12/03 completed Not Available Not Available Not Available Praluent Pen 75 mg/mL subcutaneou s pen injector INJECT 1 ML SUBCUTANE OUSLY EVERY TWO WEEKS 12/03 completed Not Available Not Available Not Available Repatha SureClick 140 mg/mL subcutaneou s pen injector INJECT 1 PEN SUBCUTANE OUSLY EVERY TWO WEEKS 12/03 completed Not Available Not Available Not Available Accu-Chek Guide test strips USE 1 STRIP TO CHECK GLUCOSE ONCE DAILY active Not Available Not Available No t Available Accu-Chek Guide Glucose Meter USE ONCE DAILY active Not Available Not Available No t Available OneTouch Ultra Blue Test Strip USE ONE STRIP TO CHECK GLUCOSE ONCE DAILY 12/05 completed Not Available Not Available Not Available Vitals Date Recorded Body height Body weight Heart rate Body temperature Oxygen saturation Oxygen saturation in Arterial blood by Pulse oximetry Systolic blood pressure Diastolic blood pressure Provider Name and Address Organization Details Last Updated DateTime 4 147.32 cm 36223.6 8 g 92 /min 97 [degF] 95 % 95 % 118 mm[Hg] 60 mm[Hg] MASON Trimble [place] - S [place] [employer] [facility] 4 16:46:08 Date Recorded Body height Body temperature Heart rate Oxygen saturation Oxygen saturation in Arterial blood by Pulse oximetry Respiratory rate Systolic blood pressure Diastolic blood pressure Provider Name and Address Organization Details Last Updated DateTime 4 147.32 cm 98.3 [degF] 94 /min 94 % 94 % 18 /min 116 mm[Hg] 66 mm[Hg] Yolette Gonzalez RN [facility] [employer] [facility] 4 16:21:00 Date Recorded Body height Heart rate Body temperature Oxygen saturation Oxygen saturation in Arterial blood by Pulse oximetry Systolic blood pressure Diastolic blood pressure Provider Name and Address Organization Details Last Updated DateTime 4 147.32 cm 87 /min 98.6 [degF] 96 % 96 % 111 mm[Hg] 60 mm[Hg] Rom August RN [facility] [employer] [facility] 4 17:06:47 Date Recorded Body height Body temperature Respiratory rate Heart rate Oxygen saturation Oxygen saturation in Arterial blood by Pulse oximetry Systolic blood pressure Diastolic blood pressure Provider Name and Address Organization Details Last Updated DateTime 4 147.32 cm 97.5 [degF] 18 /min 88 /min 96 % 96 % 105 mm[Hg] 60 mm[Hg] Yolette Gonzalez RN [facility] [employer] [facility] 4 16:43:45 Date Recorded Body height Body mass index (BMI) Body weight Heart rate Oxygen saturation Oxygen saturation in Arterial blood by Pulse oximetry Systolic blood pressure Diastolic blood pressure Provider Name and Address Organization Details Last Updated DateTime 5 147.32 cm 24.9 kg/m2 40212.4 9 g 72 /min 96 % 96 % 128 mm[Hg] 68 mm[Hg] Gila Alvarado CMA [facility] [employer] [facility] 5 16:52:57 Social History Question Answer Notes LastModified by Organizat ion Details LastModified Time Tobacco Smoking Status Never Smoker Not Available [facility] 01/23/2023 14:45:37 Do You Have An Advance Directive? Yes [id number] Information not available 01/23/2023 What Is Your Level Of Alcohol Consumption? None MIGRATION.[id number] Information not available 01/23/2023 Are You Blind Or Do You Have Difficulty Seeing? No Glasses MIGRATION.[id number] Information not available 01/23/2023 In The 14 Days Before Symptom Onset, Have You Had Close Contact With A Laboratory-confirm ed COVID-19 While That Case Was Ill? No MIGRATION.[id number] Information not available 01/23/2023 In The 14 Days Before Symptom Onset, Have You Had Close Contact With A Person Who Is Under Investigation For COVID-19 While That Person Was Ill? No MIGRATION.[id number] Information not available 01/23/2023 Are You Deaf Or Do You Have Serious Difficulty Hearing? No MIGRATION.[id number] Information not available 01/23/2023 What Type Of Diet Are You Following? REGULAR MIGRATION.[id number] Information not available 01/23/2023 What Is Your Occupation? Retired MIGRATION.[id number] Information not available 01/23/2023 Have There Been Any Changes To Your Family Or Social Situation? No MIGRATION.[id number] Information not available 01/23/2023 What Is The Fluoride Status Of Your Home? Unknown MIGRATION.[id number] Information not available 01/23/2023 Are There Any Guns Present In Your Home? No MIGRATION.[id number] Information not available 01/23/2023 Do You Use Insect Repellent Routinely? No MIGRATION.[id number] 8773 Information not available 01/23/2023 [address] Do You Live? [place] MIGRATION .[id number] Information not available 01/23/2023 Are You Able To Care For Yourself? Yes [email or web address] Information n ot available 03/02/2024 Are You Blind Or Do Yo Have Difficulty Seeing? No [email or web address] Information n ot available 03/02/2024 Are You Deaf Or Do You Have Serious Difficulty Hearing? No [email or web address] Information not available 03/02/2024 Live Alone Of With Others? With Others [email or web address] Information not available 03/02/2024 Do You Have A Medical Power Of Golf Sales Associate? Yes [email or web address] Information not available 03/02/2024 What Was The Date Of Your Most Recent Tobacco Screening? 03/02/2024 [email or web address] Information not available 03/02/2024 Do You Have Any Pets? Yes [email or web address] Information not available 03/02/2024 Do You Use Your Seat Belt Or Car Seat Routinely? Yes [email or web address] Information not available 03/02/2024 Do You Have Smoke And Carbon Monoxide Detectors In Your Home? Yes MIGRATION.[id number] Information not available 01/23/2023 Are You Passively Exposed To Smoke? No MIGRATION.097939 5376 Information not available 01/23/2023 Are There Any Smokers In Your House? No MIGRATION.267542 2357 Information not available 01/23/2023 Do You Use Sunscreen Routinely? No MIGRATION.[id number] 9799 Information not available 01/23/2023 Have You Recently Traveled Abroad? No MIGRATION.[id number] 6764 Information not available 01/23/2023 Do You Have Any Dietary Restrictions? No MIGRATION.826619 7237 Information not available 01/23/2023 Sex: Unknown Functional Status Question Answer Note LastModified by Organizat ion Details LastModified Time Do you have difficulty walking or climbing stairs? Yes uses cane or walker MIGRATION.[id number] Information not available 01/23/2023 Do you have transportation difficulties? No MIGRATION.940771 4465 Information not available 01/23/2023 Are you able to walk? YESASSIST MIGRATION.[id number] 9313 Information not available 01/23/2023 Do you have difficulty doing errands alone? Yes doesn't drive MIGRATION.292766 1383 Information not available 01/23/2023 Are you able to care for yourself? Yes MIGRATION.426485 8157 Information not available 01/23/2023 Do you have difficulty dressing or bathing? No MIGRATION.265640 8228 Information not available 01/23/2023 What is your exercise level? Occasional MIGRATION.[id number] 9274 Information not available 01/23/2023 Mental Status Question Answer Note LastModified by Organizat ion Details LastModified Time Do you have difficulty concentrating, remembering or making decisions? No MIGRATION.[id number] Information not available 01/23/2023 Family History Relationship Description Onset Age of this Age Resolved Age Notes LastModified by Organization Details LastModified Time Mother Heart disease [id number] Not available 01/23/2023 14:46:02 Sister Family history of malignant neoplasm MIGRATION.[id number] Not available 01/23/2023 14:46:02 Father Family history of malignant neoplasm MIGRATION.[id number] Not available 01/23/2023 14:46:02 Brother Family history of malignant neoplasm MIGRATION.[id number] Not available 01/23/2023 14:46:02 Maternal Grandmother Family history of malignant neoplasm MIGRATION.[id number] Not available 01/23/2023 14:46:02 Unspecified Relation Diabetes mellitus [email or web address] Not available 2023 16:23:35 Notes:Mother 75 from [place] D Father 64 [place] Colon Seven sisters 4 living three one from CAD, Leukemia and MVA Seven brothers four living and in good health. Two in MVA and one unknown causes. Medical History Condition Response NERVE DISEASE N BLINDNESS N RHEUMATIC FEVER N KIDNEY STONES N BLADDER PROBLEMS N MRSA N CARPAL TUNNEL SYNDROME N OTHER # 1 N POLIO N LUNG DISEASE/DISORDER N HISTORY OF DRUG ABUSE N COPD N RADIATION / CHEMOTHERAPY N Other # 2 N SPORTS INJURY N ANKLE PAIN N BLOOD DISEASES N SURGERY N EAR OR HEARING PROBLEMS N MUMPS N SCHIZOPHRENIA N SHINGLES N BOWEL PROBLEMS N SHOULDER PAIN N DEPRESSION (INCLUDING POST ) N STROKE/TIA N ULCERS N KNEE PAIN N BENIGN PROSTATIC HYPERPLASIA N MEASLES N MYOCARDIAL INFARCTION N OBESITY N GERD/NAUSEA N ANEURYSM N URINARY/BLADDER/KIDNEY PROBLEMS N CORONARY ARTERY DISEASE (CAD) Y INPATIENT PSYCH CARE N ADDICTION CONCERNS N ENDOMETRIOSIS N Impotence N USE OF BLOOD THINNERS Y SKIN PROBLEMS N EMPHYSEMA N GASTROINTESTINAL DISORDER Y PERIPHERAL VASCULAR DISEASE Y MUSCLE,JOINT OR BONE PROBLEMS N DVT N STOMACH ULCERS N GASTROINTESTINAL BLEEDING N BLOOD CLOTS N ASTHMA N CATARACTS N USE OF NSAIDS N CONCUSSION OR SPINAL TRAUMA N ERECTILE DYSFUNCTION N VARICOSITIES N GI PROBLEMS N Low Testosterone N NEUROPATHY N INFERTILITY N AIDS/HIV N FRACTURES N LIVER DISEASE N MALE HYPOGONADISM N ELBOW PAIN N HYPERTENSION N Deficiency N TOURETTE'S N ANXIETY DISORDER N Metal allergy N BLOOD TRANSFUSION N ANEMIA/BLOOD DISORDER N CHRONIC EAR INFECTIONS N BIPOLAR DISORDER N BRONCHITIS N OSTEOARTHRITIS N TUBERCULOSIS N GLAUCOMA N FOOT PROBLEM N HEART VALVE DISORDERS N DIVERTICULITIS N CHICKENPOX N SLEEP APNEA N SOFT TISSUE INJURY N ALLERGIES/HAYFEVER N INFECTIOUS DISEASE N HEART ARRHYTHMIA N PROSTATE N INSOMNIA N RHEUMATOID ARTHRITIS N HIGH CHOLESTEROL / HYPERLIPIDEMIA N EYE PROBLEMS N HYPERTHYROIDISM N NEUROLOGICAL PROBLEMS Y EDEMA N CHRONIC PAIN SYNDROME N HYPOTHYROIDISM N CAROTID BLOCKAGE N CONSTIPATION N BACK / NECK PROBLEMS Y HAVE YOU BEEN HOSPITALIZED OR SEEN IN [facility] ER IN THE PAST YEAR ? N ATHEROSCLEROSIS N BURSITIS N BREAST PROBLEMS N HERNIATED DISC N DIALYSIS N ECZEMA N FIBROMYALGIA N OSTEOPOROSIS N ARTHRITIS Y NO SIGNIFICANT PAST MEDICAL HISTORY N PERIPHERAL NEUROPATHY N APPENDICITIS N DIABETES, TYPE Y BAD TEETH N ENT N HEARTBURN / REFLUX N AUTISM SPECTRUM DISORDER (ASD) N HEPATITIS / LIVER DISEASE N PULMONARY DISEASE N GOUT N SLEEP DISORDER Y ALZHEIMER'S DISEASE N Brain Problems N HERPES N DEMENTIA N HEADACHES/MIGRAINES N SEIZURES/EPILEPSY N VASCULAR DISEASE Y PACEMAKER N Blood Disorder N HIP PAIN N DIZZINESS N HEAD TRAUMA OR INJURY N HEART DISEASE/HEART PROBLEMS Y KIDNEY DISEASE N MULTIPLE SCLEROSIS N CARDIAC ARRHYTHMIA N CANCER: SPECIFY N ANESTHESIA COMPLICATIONS N ATRIAL FIBRILLATION N Gall Stones N PULMONARY EMBOLISM N AUTOIMMUNE DISEASE N Gynecological History Statement/Question Response Date of Last Pap Date of Last Mammogram 11/29/2014 Date of Last Colonoscopy Obstetrics History GPAL:G 0 P 0 0 0 0 Immunizations Vaccine Type Date Status Note Provider Nam e and Address Organization Details Recorded Time Influenza, high-dose, trivalent, PF 4 completed Donovan Cardenas MD [address], [place], [address], [email or web address] 08/31/2024 16:59:38 Pneumococcal conjugate PCV20, polysaccharide [id number] conjugate, adjuvant, PF 4 completed Donovan Cardenas MD [address], [place], [address], [email or web address] 08/31/2024 16:59:38 SARS-COV-2 (COVID-19) vaccine, UNSPECIFIED 1 completed Not Available [facility] 01/02/2024 00:33:23 SARS-COV-2 (COVID-19) vaccine, UNSPECIFIED 1 completed Not Available [facility] 01/02/2024 00:33:23 SARS-COV-2 (COVID-19) vaccine, UNSPECIFIED 1 completed Not Available [facility] 01/02/2024 00:33:23 Influenza, high-dose, quadrivalent, PF 1 completed Not Available [facility] 01/02/2024 00:33:23 Influenza, high-dose, quadrivalent, PF 3 completed Not Available [facility] 01/02/2024 00:33:23 Influenza, high-dose, quadrivalent, PF 0 completed Not Available [facility] 01/02/2024 00:33:23 Influenza, high-dose, trivalent, PF 9 completed Not Available [facility] 01/02/2024 00:33:23 pneumococcal polysaccharide PPV23 5 completed Not Available [facility] 01/02/2024 00:33:23 Pneumococcal conjugate PCV 13 5 completed Not Available [facility] 01/02/2024 00:33:23 Past Encounters Encounter ID Performer Location Encounter Start Date Encounter Closed Date Diagnosis/Indication Diagnosis SNOMED-CT Code Diagnosis ICD10 Code Diagnosis Note [id number] [facility] 24 [address] Patience Ramirez [address] [address] 02/06/2021 00:00:00 02/06/2021 18:02:21 [id number] [facility] [address] [address] 06/12/2021 00:00:00 06/12/2021 17:47:33 [id number] [facility] [address] [address] 10/09/2021 00:00:00 10/09/2021 17:30:22 [id number] [facility] [address] [address] 12/21/2021 00:00:00 12/23/2021 15:51:42 [id number] [facility] 24 2043 Patience Ramirez [address] [address] 02/08/2022 00:00:00 02/08/2022 14:30:32 [id number] [facility] [address] [address] 02/08/2022 00:00:00 02/08/2022 15:29:16 [id number] [facility] [address] [address] 06/04/2022 00:00:00 06/04/2022 16:46:21 [id number] [facility] [address] [address] 12/03/2022 00:00:00 12/03/2022 16:42:41 [id number] Donovan Cardenas MD [facility] [address] [address] 04/01/2023 16:04:10 04/01/2023 16:40:42 Coronary arteriosclerosis 01153349 I25.10 Essential hypertension 77497297 I10 Type 2 lucinda betes mellitus 17529238 E11.9 Gastroesop hageal reflux disease 960716403 K21.9 Osteoporosis 53827687 M8 1.0 Hypercholesterolemia 136 98570 E78.00 Peripheral vascular disease 736447977 I73.9 [id number] Donovan Cardenas MD [facility] [address] [address] 09/02/2023 16:04:37 09/02/2023 17:26:10 Essential hypertension 53720710 I10 Hypercholesterolemia 136 44424 E78.00 Type 2 lucinda betes mellitus 55464810 E11.9 [id number] Demetrius Negron DPM [facility] Podiatry [place] [address] [facility] [facility] [address] [place] [address] 12/19/2023 16:18:54 12/25/2023 09:26:10 Pain in both feet 5402438837 0845007 M79.671 M79.672 Diabetes m ellitus without complication 067532297 E11.9 Educated on diabetesRe commend daily foot exams to prevent wounds infection Bunion [id number] M21.61 9 Offloading crucial to prevent wounds infectionR ecommend diabetic extra-dept h wide shoe gear Peripheral arterial occlusive disease 803992998 I73.9 Obtain previous testing results from vascular office [id number] Donovan Cardenas MD [facility] [address] [address] 03/02/2024 16:19:28 03/02/2024 16:59:47 Adult health examination [id number] Z00.00 Screening for disorder 448428616 Z13.9 Coronary arteriosclerosis 79977324 I25.10 Essential hypertension 88166650 I10 Hypercholesterolemia 136 95201 E78.00 Type 2 lucinda betes mellitus without complication 958101638 E11.9 Peripheral arterial occlusive disease 443686976 I73.9 [id number] Demetrius Negron DPM [facility] [address] [place] [address], [address] [place] [address] 06/25/2024 16:38:31 06/29/2024 11:13:11 Ulcer of toe 589405165 L97.509 left 5th toe 0.3x0.3x0. 3cmwound care dailyMonit or for signs of infection present seek medical attention immediatel yFollow-up 1 week Peripheral vascular disease 571381464 I73.9 has vasc art us this coming week- obtain Dystrophia unguium 49893 009 L60.3 nails debrided without incident Type 2 lucinda betes mellitus 86698018 E11.9 continue diabetic control per PCP recommenda tions [id number] Demetrius Negron DPM [facility] [address], [facility] 4 [place] [address] 07/09/2024 16:46:01 07/10/2024 09:44:53 Ulcer of toe 795498240 L97.509 left 5th toe 0.3x0.3x0. 3cmxray neg for erosive changes to the 5th toewound care dailyMonit or for signs of infection present seek medical attention immediatel yFollow-up 1 week Peripheral vascular disease 123979053 I73.9 has vasc art us jul 17threcomm end moving that up she will call Sign Vas Bunion [id number] M21.61 9 Offloading crucial to prevent wounds infectionR ecommend diabetic extra-dept h wide shoe gear [id number] Donovan Cardenas MD [facility] Internal Med [facility] [address] [facility], [facility] 24 [place] [address] 07/13/2024 16:22:23 07/13/2024 16:59:26 Cellulitis of left lower limb 7648620507 0398640 L03.960 [id number] Demetrius Negron DPM [facility] [address], [facility] 4 [place] [address] 07/22/2024 16:11:24 07/23/2024 11:36:40 Ulcer of toe 530955931 L97.509 left 5th toe 0.3x0.3x0. 3cmxray neg for erosive changes to the 5th toewound care dailyMonit or for signs of infection present seek medical attention immediatel yFollow-up 1 week Skin eschar 209461791 R2 3.4 multiple left lower leg removed with healed wounds with 1 remaining woundas above Open wound of left lower leg 5046802208 6349985 S81.802A wound to level of dermiswoun d debrided todaywound care dailyMonit or for infection at present seek medical attention immediatel yPatient had mild compressio n dressing applied to lower leg to reduce swelling and allow healing Peripheral venous insufficiency 44931288 I87.2 bilateral lower legs worse to the leftwill need mild compressio n, chronic daily [id number] Demetrius Negron DPM [facility] Podiatry [address], [address] [address] 08/04/2024 17:00:02 08/24/2024 11:53:11 Ulcer of toe 461800379 L97.509 left 5th toe 0.3x0.3x0. 3cmxray neg for erosive changes to the 5th toewound care dailyMonit or for signs of infection present seek medical attention immediatel yFollow-up 1 week Open wound of left lower leg 2217861734 6679194 S81.802A wound to level of dermiswoun d debrided todaywound care dailyMonit or for infection at present seek medical attention immediatel yPatient had mild compressio n dressing applied to lower leg to reduce swelling and allow healing Skin eschar 770824938 R2 3.4 multiple left lower leg removed with healed wounds with 1 remaining woundas above Peripheral venous insufficiency 62907101 I87.2 bilateral lower legs worse to the leftwill need mild compressio n, chronic daily [id number] Demetrius Negron DPM [facility] Podiatry [address], [address] [address] 08/13/2024 16:27:12 08/17/2024 10:24:06 Ulcer of toe 684659036 L97.509 left 5th toeOffload ing at all times discuss special shoes with new pre-style toe box patient has not obtained it continues narrow toe box shoe gearwound care dailyMonit or for signs of infection present seek medical attention immediatel yFollow-up 1 week-wound care Open wound of left lower leg [id number] 3003709 S81.802A wound to level of dermiswoun d care daily mild compressio n dressing appliedMon itor for infection at present seek medical attention immediatel y Peripheral venous insufficiency 54198379 I87.2 bilateral lower legs worse to the leftwill need mild compressio n, chronic daily [id number] Demetrius Negron DPM [facility] [address] [address] 08/19/2024 16:23:20 08/19/2024 19:38:14 Open wound of left lower leg 7123054025 8173049 S81.802A wound to level of subcuwound care daily mild compressio n dressing appliedMon itor for infection at present seek medical attention immediatel y Ulcer of toe 718248100 L 97.509 left 5th toeOffload ing at all times discuss special shoes with new pre-style toe box patient has not obtained it continues narrow toe box shoe gearwound care dailyMonit or for signs of infection present seek medical attention immediatel yFollow-up 1 week-wound care Peripheral venous insufficiency 67590941 I87.2 bilateral lower legs worse to the leftwill need mild compressio n, chronic daily [id number] Demetrius Negron DPM [facility] W[facility] [address] [address] 08/26/2024 16:30:18 08/26/2024 17:03:41 Open wound of left lower leg 9155145444 4695772 S81.802D wound to level of subcuwound care daily mild compressio n dressing appliedMon itor for infection at present seek medical attention immediatel y Ulcer of toe 963172006 L 97.509 left 5th toewound debrided todayOfflo ading at all times discuss special shoes with new pre-style toe box patient has not obtained it continues narrow toe box shoe gearwound care dailyMonit or for signs of infection present seek medical attention immediatel yFollow-up 1 week-wound care Peripheral venous insufficiency 84692146 I87.2 bilateral lower legs worse to the leftwill need mild compressio n, chronic daily [id number] Donovan Cardenas MD [facility] Internal [facility] [address] [facility] [place] [address] 08/31/2024 16:27:19 08/31/2024 17:04:12 Coronary arteriosclerosis 34203557 I25.10 Essential hypertension 49339552 I10 Hypercholesterolemia 136 09437 E78.00 Peripheral vascular disease 483587849 I73.9 Type 2 lucinda betes mellitus without complication 638959710 E11.9 Administra tion of influenza vaccine 33920311 Z23 Administra tion of pneumococcal vaccine 48000561 Z23 Cellulitis of upper limb 541537343 L03.335 [id number] Demetrius Negron DPM [facility] [address] [place] [address] 09/02/2024 16:16:47 09/02/2024 17:04:17 Open wound of left lower leg 6735452897 2706347 S81.802D wound to level of subcu- continued healingwou nd care daily mild compressio n dressing appliedMon itor for infection at present seek medical attention immediatel y Pressure i njury of toe of left foot stage II 4170400829 94411 L89.892 left 5th toe and 4th toeOffload ing at all times discuss special shoesconti nue gentamicin dressingsw ound care dailyMonit or for signs of infection present seek medical attention immediatel yFollow-up 1 week-wound care Peripheral venous insufficiency 21099055 I87.2 bilateral lower legs worse to the leftwill need mild compressio n, chronic daily [id number] Demetrius Negron DPM [facility] [address] [place] [address] 09/09/2024 16:32:17 09/10/2024 12:32:27 Open wound of left lower leg 9034263387 6574089 S81.802D wound to level of subcu- continued healingwou nd care daily mild compressio n dressing appliedMon itor for infection at present seek medical attention immediatel y Peripheral venous insufficiency 14167926 I87.2 bilateral lower legs worse to the leftwill need mild compressio n, chronic daily Pressure i njury of toe of left foot stage II 1684882264 01123 L89.892 left 5th toe and 4th toeOffload ing at all times discuss special shoes with new pre-style toe box patient has not obtained it continues narrow toe box shoe gearcontin ue gentamicin dressingsw ound care dailyMonit or for signs of infection present seek medical attention immediatel yFollow-up 1 week-wound care [id number] Demetrius Negron DPM [facility] [address] [place] [address] 09/16/2024 16:32:50 09/16/2024 17:24:58 Open wound of left lower leg 9425518522 1901642 S81.802D wound to level of subcu- continued healingwou nd care daily mild compressio n dressing appliedMon itor for infection at present seek medical attention immediatel y Pressure i njury of toe of left foot stage II 3780961843 65721 L89.892 left 5th toe and 4th toeOffload ing at all times discuss special shoes with new pre-style toe box patient has not obtained it continues narrow toe box shoe gearcontin ue gentamicin dressingsw ound care dailyMonit or for signs of infection present seek medical attention immediatel yFollow-up 1 week-wound care Peripheral venous insufficiency 55747756 I87.2 bilateral lower legs worse to the leftwill need mild compressio n, chronic daily [id number] Donovan Cardenas MD [facility] [address] [facility], [facility] 24 [place] [address] 01/04/2025 16:13:46 01/04/2025 17:10:13 Coronary arteriosclerosis 51320654 I25.10 Essential hypertension 73496929 I10 Hypercholesterolemia 136 65936 E78.00 Gastroesop hageal reflux disease without esophagitis 845385173 K21.9 Health Concerns Section Related Observation LastModified by Organization Detai ls LastModified Time None Recorded Concern Status LastModified by Organization Details LastModified Time None Recorded Advance Directives Directive Y: Payers Encounter Date Sequence Insurance Name Policy Number Policy León Covered Member ID León Member ID Guarantor Name 08/31/2024 1 [facility] (MEDICARE REPLACEMENT/A DVANTAGE - HMO) [id number] Evy Avila [id number] Evy Avila 09/02/2024 1 [facility] (MEDICARE REPLACEMENT/A DVANTAGE - HMO) [id number] Evy Avila [id number] Evy Avila 09/09/2024 1 [facility] (MEDICARE REPLACEMENT/A DVANTAGE - HMO) [id number] Evy Katie Avila [id number] Evy Avila 09/16/2024 1 [facility] (MEDICARE REPLACEMENT/A DVANTAGE - HMO) [id number] Evy Katie Avila [id number] Evy Avila 01/04/2025 1 [facility] (MEDICARE REPLACEMENT/A DVANTAGE - PPO) Evy Avila [id number] Evy Avila Notes Date Note Type Note Provider Name and Address Organization Details Recorded Time text/html Patient Name: Evy Nguyenate Of Service: Saturday ( 08.31.2024 ): 1940 Age: 84 Vital Signs:Blood Pressure: Sitting Rt. Arm 118/60Pulse: Sitting 92 /min and RegularRespiratory Rate: 16Height 58 in or 1.5 mWeight 121 lb or 54.9 kgBMI 25.3Temperature: 97 F or 36.1 CPulse Oximetry: 95 % at rest on no oxygen Chief Complaint: Addressed in HPI Problems or conditions discussed in the HPI were the only ones reviewed during the encounter.Only social and family history addressed in the HPI were reviewed during this encounter. Attendant(s): DaughterConstitutional and Systemic Symptoms:none Medication Reconciliation: from medication list. Izfpvaebwwa81/31/2023: Bone density scan shows osteoporosis of the forearm osteopenia of the hips. Recommend continue on any calcium and vitamin-D supplementation but needs to be on a bisphosphonates such as Fosamax as well.12/25/2022: Normal mammogram 01/05/2023: EH screenings of the lower extremities demonstrated borderline left severe peripheral vascular disease on the right which was known. 09-20-2023: Doppler normal arterial flow lower extremities above the knee bilaterally. Elpo-rq-jasywbqr disease in the lower extremities bilaterally. Flow intact in the right popliteal status post balloon angioplasty. Unable to obtain ABIs due to calcified arterial tamayo 12-10-2023: Nondilated segments of small bowel with air-fluid levels possibly representing mild enteritis or adynamic ileus. Nonobstructive left lower pole renal calculus. Bilateral renal cyst and uterine fibroids noted. 02-06-2024: Upper endoscopy showed non-erosive reflux disease. Large amount of retained food was seen in the body of the stomach. Being scheduled for outpatient gastric emptying study. 07-28-2024: Echocardiogram estimated ejection fraction of 30 40%. Evidence of left ventricular end-diastolic pressure of 25.8 mmHg. History of Present Illness #1. Coronary Artery Disease: There has been no change in frequency - duration - intensity in frequency, duration or intensity of chest pain. Other Complaints: none The frequency of anginal attacks is none at all. Additional Symptoms: none Therapy reviewed regarding cardiovascular management includes Aspirin, Fish Oil Caps, Nexletol, Plavix, Spironolactone and Vascepa #2. Essential Hypertension: Stage: Stage I Interval Neurological Complaints no headaches, dizziness, weakness, visual changes, ataxia, aphasia and apraxia. No shortness of breath, orthopnea or cardiovascular symptoms. No other symptoms related to end organ damage. Pressure has been under excellent control. Currently normal. No other end organ symptoms or findings. Therapy reviewed regarding management of hypertension and includes salt restriction and Spironolactone. #3. Type II Hypercholesterolaemia: Currently taking medication and tolerating well. Some interval complaints of any muscle pain or arthralgia. No significant liver changes with medications. Last lipid panel: suboptimal by ATP III guidelines. Therapy reviewed regarding treatment of cholesterol management and include diet and Nexletol. #4. Hx of peripheral vascular disease. There has been no increase in intensity, severity or duration of claudication symptoms. Exertional capacity has remained essentially unchanged. Is able to walk less than 100 feet without developing any claudication. No rest pain noted. #5. Type II Diabetes: Has had no polyuria polyphagia or polydipsia. Has had no hypoglycemic like responses. No new history of any numbness, tingling, weakness or visual problems. No nausea, anorexia or other constitutional symptoms. There has been no foot problems or non healing lesions. The last HAIC was DCCT HAIC: 5.9 Calculated MB mg%. CGM: No. Average blood sugars 100-115 mg%. Checking sugars : infrequently. Medication Types Include: Metformin Secondary complications include none. Macro-vascular complications include none. Therapy reviewed regarding diabetic management and include Metformin Hydrochloride Compliance: good Renal Protection: not required at this stage Lipid management: cannot tolerate statins and related medication Urinary microalbumin: A1 . Ophthalmological: has seen eye doctor within the last year. Control: Below 6.2 Active Medication ListNexletol 180 MG TABLET, FILM COATED Once DailyAlendronate Sodium 70 MG TABLET Once WeeklyMetformin Hydrochloride 1 GM (TABLET - ORAL) One Twice A DayPrilosec 40 MG (CAPSULE, DELAYED REL PELLETS - ORAL) One Twice A DayMirapex 0.125 MG (TABLET - ORAL) One Twice A DayPlavix 75 MG (TABLET - ORAL) One DailyVascepa 1 GM (CAPSULE - ORAL) Two BidVitamin E 2 Tabs Every DayPotassium Chloride 20 MEQ (TABLET, EXTENDED RELEASE - ORAL) DailySpironolactone 25 MG (TABLET - ORAL) Twice A DayVitamin D 50,000 IU (CAPSULE - ORAL) WeeklyFish Oil Caps 1200 Three Times A DayVitamin C Gummies DailyDorzolamide Hcl /Timolol Sheri One Drop Each Eye DailyMultivitamin DailyAspirin 81 MG Once DailyNeurontin 100 MG (CAPSULE - ORAL) One Twice A Day Vaccination and Immunization( ) 2024-08 INFLUENZA( ) 2014-11 PREVNAR 13 GC( ) 2015-07 PNEUMOVAX( ) 2021-02 COVID MODERNA(X) 2021-10 COVID BOOSTER MODERNA( ) 2024-08 PREVNAR 20 Surgical Ybefvto8274-16 Right Leg Lrrtu1839-36 Left Leg Asvimxlginh1221-05 Achalasia Ytdqybf9043-74 Lap Zbmxbfpznenjyfd5984-63 YIOQ5111-94 Lumbar Sgacpcujpcn0651-03 Vein Stripping Preventative Testing( ) 07/03/2024 Optometry( ) 06/30/2024 Albumin 3.5 G/DL( ) 03/03/2024 HAIC 5.9 %( ) 02/06/2024 Upper Endoscopy( ) 10/16/2023 Micro Albumin 11.2 MG/L N( ) 12/25/2022 Mammogram 12/25/2024( ) 12/25/2022 DEXA Scan 12/25/2024( ) 02/17/2019 Ophthalmology( ) 12/05/2015 Colonoscopy (5 Years) 12/05/2020 Social HistoryWidowedDoes not smokeDoes not drinkWorks as domestic industrial engineering Family HistoryMother 75 from CADFather 64 CA ColonSeven sisters 3 living four two from CAD, Leukemia and MVASeven brothers four living and in good health. Two in MVA and one unknown causes. TEST RESULT RANGE UNITSLIPID PANEL Date: 4CHOLESTEROL 225 140-199 MG/DLTRIGLYCERIDES 257 0-150 MG/DLHDL CHOLESTEROL 52 40- MG/DLLDL CHOLESTEROL, CALCULATED 122 0-130 MG/DLCBC/COMPLETE BLD COUNT W/DIFF Date: 06/30/2024WHITE BLOOD CELLS 6.5 4.2-10.8 X10'3/ULHEMOGLOBIN 12.7 12.0-15.6 G/DLHEMATOCRIT 39.1 35.7-45.7 %PLATELETS 272 150-400 X10'3/ULHEMOGLOBIN A1C Date: 03/03/2024HA1C 5.9 4.0-6.0 % Donovan Cardenas MD [address] [facility], [facility] [address], [place], [address], [employer] [facility] [employer] 08/31/2024 17:01:01 4 text/html . Patient is a 84-year-old female she returns to the office for follow-up on wounds of the lower extremities And wound to the 5th toe. Patient is almost completely healed the wound to the 5th toe she has a pinhole left. Patient has no acute signs of infection to this toe she also is slowly healing the wound to her lower leg to which she continues have granular tissue she also has developed a new wound to the 4th toe to which she has some mild redness explained that she needs offload this area and apply topical antibiotic ointment to the area if the area does not improve or the redness worsens she is to notify the office immediately. Patient denies any fever, chills, nausea or vomiting. Demetrius Negron DPM [address] [facility], [address], [place], [address], [email or web address] 09/10/2024 09:50:24 4 text/html . Patient is an 84-year-old female who returns the office for lower leg wound and 2 wounds of the toes. Patient continues have stable wounds she did try silicone offloading toe spacers which caused her too much separation and pain. Patient states the toes are not red or draining any purulence. Patient states she does not want to undergo any surgery I expressed the important thing is wound management as well as offloading to prevent the wounds from getting infected she understands that if they become infected she will likely lose the toe. Patient has a wound to the lower leg calf area which is almost healed and doing very well. Demetrius Negron DPM [address], [address], [place], [address], [employer] [facility] 09/10/2024 09:51:51 4 text/html . Patient is an 84-year-old female peripheral arterial disease she returns the office for follow-up on lower calf wound which has slowly healing. Patient also has a chronic wound secondary to hammertoe 5th toe which continues to be full-thickness and is very small without any acute signs of infection. I did recommend surgical therapy of the toe but she declines and wants to continue with offloading. Patient is at high risk of toe amputation. Demetrius Negron DPM [address], [address], [place], [address], [email or web address] 09/26/2024 15:13:37 5 text/html Patient Name: Evy Christine Of Service: Saturday ( 01.04.2025 ): 1940 Age: 84 There has been approximately a 2 lb weight loss since 08/31/2024. This represents approximately a 1.7% change in weight. Weight change attributable to lifestyle changes. Vital Signs:Blood Pressure: Sitting Rt. Arm 128/68Pulse: Sitting 72 /min and RegularRespiratory Rate: 16Height 58 in or 1.5 mWeight 119 lb or 54.0 kgBMI 24.9Pulse Oximetry: 98 % at rest on no oxygen Chief Complaint: Addressed in HPI Problems or conditions discussed in the HPI were the only ones reviewed during the encounter.Only social and family history addressed in the HPI were reviewed during this encounter. Attendant(s): DaughterConstitutional and Systemic Symptoms:none Medication Reconciliation: from medication list. Ubfhvubobbl15/11/2023: EH screenings of the lower extremities demonstrated borderline left severe peripheral vascular disease on the right which was known. 09-20-2023: Doppler normal arterial flow lower extremities above the knee bilaterally. Tqsg-xp-ycmrzsur disease in the lower extremities bilaterally. Flow intact in the right popliteal status post balloon angioplasty. Unable to obtain ABIs due to calcified arterial tamayo 12-10-2023: Nondilated segments of small bowel with air-fluid levels possibly representing mild enteritis or adynamic ileus. Nonobstructive left lower pole renal calculus. Bilateral renal cyst and uterine fibroids noted. 02-06-2024: Upper endoscopy showed non-erosive reflux disease. Large amount of retained food was seen in the body of the stomach. Being scheduled for outpatient gastric emptying study. 07-28-2024: Echocardiogram estimated ejection fraction of 30 40%. Evidence of left ventricular end-diastolic pressure of 25.8 mmHg. History of Present Illness #1. Coronary Artery Disease: There has been no change in frequency - duration - intensity in frequency, duration or intensity of chest pain. Other Complaints: none The frequency of anginal attacks is none at all. Additional Symptoms: none Therapy reviewed regarding cardiovascular management includes Nexletol, Plavix, Spironolactone and Vascepa #2. Essential Hypertension: Stage: Stage I Interval Neurological Complaints no headaches, dizziness, weakness, visual changes, ataxia, aphasia and apraxia. No shortness of breath, orthopnea or cardiovascular symptoms. No other symptoms related to end organ damage. Pressure has been under excellent control. Currently normal. No other end organ symptoms or findings. Therapy reviewed regarding management of hypertension and includes salt restriction and Spironolactone. #3. Type II Hypercholesterolaemia: Currently taking medication and tolerating well. No interval complaints of any muscle pain or arthralgia. No significant liver changes with medications. Last lipid panel: no testing done recently. Therapy reviewed regarding treatment of cholesterol management and include diet and Nexletol and Vascepa. #4. Hx of esophageal reflux currently stable. Hx of Complications: none The severity, duration and intensity of symptoms have improved. Frequency: most meals Treatment consists medications taken on intermittent basis. Current therapy includes Metoclopramide and Prilosec. There has been no nausea, eructation, vomiting, hematemesis, dysphagia, velopharyngeal insufficiency and odynophagia. No change in he frequency or intensity of symptoms. Has had no melena. Has had no . Discussed use of H2 antagonists and the possibility of trying to reduce the frequency of the use of any PPI inhibitors and try H2 antagonists to see if symptoms can be controlled with lease intensive therapy since a number of complications are associated with chronic prolonged use of PPI inhibitors. Active Medication ListNexletol 180 MG TABLET, FILM COATED Once DailyAlendronate Sodium 70 MG TABLET Once WeeklyMetformin Hydrochloride 1 GM (TABLET - ORAL) One Twice A DayPrilosec 40 MG (CAPSULE, DELAYED REL PELLETS - ORAL) One Twice A DayMirapex 0.125 MG (TABLET - ORAL) One Twice A DayPlavix 75 MG (TABLET - ORAL) One DailyVascepa 1 GM (CAPSULE - ORAL) Two BidVitamin E 2 Tabs Every DayPotassium Chloride 20 MEQ (TABLET, EXTENDED RELEASE - ORAL) DailySpironolactone 25 MG (TABLET - ORAL) Twice A DayVitamin D 50,000 IU (CAPSULE - ORAL) WeeklyFish Oil Caps 1200 Three Times A DayVitamin C Gummies DailyDorzolamide Hcl /Timolol Sheri One Drop Each Eye DailyMultivitamin DailyAspirin 81 MG Once DailyNeurontin 100 MG (CAPSULE - ORAL) One Twice A DayMetoclopramide 5 MG TABLET One Qid Vaccination and Immunization( ) 2024-08 INFLUENZA( ) 2014-11 PREVNAR 13 GC( ) 2015-07 PNEUMOVAX( ) 2021-02 COVID MODERNA(X) 2021-10 COVID BOOSTER MODERNA( ) 2024-08 PREVNAR 20 Surgical [id number] Right Leg [id number] Left Leg Dajgdpukrpp3502-16 Achalasia Mbmziiq7601-14 Lap Utxeainbfcegscx3512-36 [id number] Lumbar Lyhdwcyqeck5169-99 Vein Stripping Preventative Testing( ) 07/03/2024 Optometry( ) 06/30/2024 Albumin 3.5 G/DL( ) 03/03/2024 HAIC 5.9 %( ) 02/06/2024 Upper Endoscopy( ) 10/16/2023 Micro Albumin 11.2 MG/L N( ) 12/25/2022 Mammogram( ) 12/25/2022 DEXA Scan 12/25/2024( ) 02/17/2019 Ophthalmology( ) 12/05/2015 Colonoscopy (5 Years) 12/05/2020 Social HistoryWidowedDoes not smokeDoes not drinkWorks as domestic industrial engineering Family HistoryMother 75 from CADFather 64 CA ColonSeven sisters 3 living four two from CAD, Leukemia and MVASeven brothers four living and in good health. Two in MVA and one unknown causes. TEST RESULT RANGE UNITSCBC/COMPLETE BLD COUNT W/DIFF Date: 06/30/2024WHITE BLOOD CELLS 6.5 4.2-10.8 X10'3/ULHEMOGLOBIN 12.7 12.0-15.6 G/DLHEMATOCRIT 39.1 35.7-45.7 %PLATELETS 272 150-400 X10'3/ULCOMPREHENSIVE METABOLIC PANEL Date: 06/30/2024SODIUM 138 137-145 MMOL/LPOTASSIUM 3.6 3.5-5.1 MMOL/LGLUCOSE 144 70-99 MG/DLBUN 14 8-19 MG/DLCREATININE 0.69 0.66-1.25 MG/DLGFR >60ALKALINE PHOSPHATASE 80 38-126 U/LALANINE AMINOTRANSFERASE 20 0-35 U/LASPARTATE AMINOTRANSFERASE 26 15-37 U/LBILIRUBIN, TOTAL 0.90 0.20-1.30 MG/DLHEMOGLOBIN A1C Date: 03/03/2024HA1C 5.9 4.0-6.0 % Donovan Cardenas MD [address], [facility] [address], [place], [address], [facility] 01/04/2025 17:05:43 OBGyn Episode No OBEpisode recorded.
--- OUTSIDE RECORDS SUMMARY | 2025-03-17 17:43 | XMS_ITS | Clinical Summary ---
Author Organization [facility] [employer] Address [address] [place] [address] Care Team Providers Care Oncology Social Work Name Role Phone Erick Rushing MD Primary Care Provider [phone] Source Comments [facility] [employer],non-owned Affiliates and Associated Physician Practices is amultiple site organization consisting of ambulatory clinics and hospital sitesin [place], [place], [place] and [place]. This disclosure is being madepursuant to the Care Everywhere program and may not contain all information available regarding this patient. Last updated [employer] Allergies Active Allergy Reactions Criticality Noted Date Comments Tramadol Nausea and/or Vomiting 12/18/2013 Medications * Be aware that medications may not be up to date on this document. Alwaysverify current medications with the patient. spironolactone (ALDACTONE) 25 MG tablet Take 25 mg by mouth 2 times daily after meals. Active gabapentin (NEURONTIN) 400 MG capsule Take 400 mg by mouth 2 times daily. Active omeprazole (PRILOSEC) 10 MG capsule Take 10 mg by mouth 2 times daily,before breakfast and supper. Active ezetimibe-simva statin (VYTORIN) 10-40 MG tablet Take 1 Tab by mouth at bedtime. Active potassium chloride (KLOR-CON) 10 MEQ tablet Take 10 mEq by mouth 2 times daily. Active vitamin D, ergocalciferol, (DRISDOL) 36218 UNITS capsule Take 50,000 Units by mouth every 14 days. Active pramipexole (MIRAPEX) 0.125 MG tablet Take 0.125 mg by mouth 2 times daily. Active timolol maleate 0.5 % SOLN Instill into both eyes 2 times daily. Active multivitamin (MULTI-DELYN) solution Take 5 mL by mouth daily with breakfast. 473 mL 0 4 Active hydrocodone-edward taminophen 7.5-325 MG/15ML solution Take 10 mL by mouth every 4 hours as needed. 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 Gender Identity Not on file Sexual Orientation Not on file Last Filed Vital Signs Vital Sign Reading Time Taken Comments Blood Pressure 141/76 02/15/2014 1:25 PM CDT Pulse 65 02/15/2014 1:25 PM CDT Temperature 36.7 C (98.1 F) 12/24/2013 3:07 PM LIME TRIMMER Respiratory Rate 18 12/24/2013 3:07 PM LIME TRIMMER Oxygen Saturation 99% 02/15/2014 1:25 PM CDT Inhaled Oxygen Concentration - - Weight 56.5 kg (124 lb 8 oz) 02/15/2014 1:25 PM CDT Height 149.9 cm (4' 11 ) 02/15/2014 1:25 PM CDT Body Mass Index 25.15 02/15/2014 1:25 PM CDT Plan of Treatment Health Maintenance Due Date Last Done Comments BONE DENSITY TESTING 1941 DTAP/TDAP/TD VACCINES (1 - Tdap) 1960 PNEUMOCOCCAL VACCINE 50+ (1 of 1 - PCV) 1991 ZOSTER VACCINE (1 of 2) 1991 Respiratory Syncytial Virus (RSV) Vaccine Pt: or over 60 yrs (1 - 1-dose 75+ series) 2016 COVID-19 VACCINE ( - 2023-2 5 season) 2024 DEPRESSION SCREENING 11/25/2024 INFLUENZA VACCINE (Season Ended) 2025 HEPATITIS B VACCINE Aged Out No longe r eligible based on patient's age to complete this topic HIB VACCINE Aged Out No longer eligi ble based on patient's age to complete this topic HPV VACCINE Aged Out No longer eligi ble based on patient's age to complete this topic MENINGOCOCCAL (Group B) VACC INE SHARED DECISION-MAKING Aged Out No longer eligibl e based on patient's age to complete this topic MENINGOCOCCAL GROUPS A/C/Y/W VACCINE Aged Out No longer eligible b ased on patient's age to complete this topic Insurance COVENTRY MEDICARE Advance Directives * FULL RESUSCITATION (Latest Code Status on File) Date Activated Date Inactivated Comments 12/22/2013 11:03 PM 12/24/2013 5:00 PM Care Teams Oncology Social Work Relationship Specialty Start Date End Date Erick Rushing MD [address] [place] [phone] PCP - General Internal Medicine 12/22/13
--- OUTSIDE RECORDS SUMMARY | 2025-03-17 17:43 | XMS_ITS | CONTINUITY OF CARE DOCUMENT ---
Author Name ladi bledsoe Address Unknown Organization [facility] Address [address] [place] [address] Phone [phone] Care Team Providers Care Molder Machine Tender Name Role Phone Cachorro NICHOLS, Dutch Unavailable [phone] FREDDIE NICHOLS, DONOVAN Unavailable DONOVAN FRAZIER MD Unavailable PROBLEMS Condition Status Date Provider Notes SPINAL STENOSIS active Vania Smith CAD-[id number],SVG-O M1 ,SVG-OM2,SVG-D1,SVG-PDA completed - Javan Finney MD DIABETES MELLITUS completed - Dutch Ivory MD CAROTID ARTERY DISEASE;NEG DUPLEX 2009 completed - Dutch Ivory MD Hyperlipidemia active Leana Ruano RN CARDIOMYOPATHY;EF 35%-40% completed 11/25 - Dutch Ivory MD SLEEP APNEA;NEG SLEEP STUDY 2009 completed - Dutch Ivory MD Diabetes Mellitus, Type II, controlled w/ vascular complications active ? Dutch Ivory MD CAD s/p CABG - SWIFT patent, other grafts occluded, diffuse distal dz ef 45% active Dutch Ivory MD Essential Hypertension active Dutch Ivory MD Renal disease, chronic, mild active Dutch Ivory MD Cardiomyopathy, EF 35-40%, mild , 07/2024 active Karson Olguin Diabetes Mellitus, Type II, controlled w/ vascular complications completed - Dutch Ivory MD COVID-19 vaccination completed - Karson Olguin 1 of 2 doses as of 02/27/21 Peripheral vascular disease (PVD)--geoff R pop stenosis, occlud. L [employer], retrograde flow, patent stent RSFA. 02/2023 active Dutch Ivory MD Claudication bilateral active Dutch Ivory MD Pneumonia completed - Dutch Ivory MD Family History Coronary Hear t Disease female < 65: completed - Dutch Ivory MD DYSMETABOLIC SYNDROME completed - Dutch Ivory MD OBESITY;WILL CONSIDER MEDIFAST completed - Dutch Ivory MD HYPERTRIGLYCERIDEMIA completed - Dutch Ivory MD LOW HDL completed - Dutch Ivory MD HTN; NEG DUPLEX & US completed - Dutch Ivory MD PVD s/p stent to distal R SF A 2014 active Dutch Ivory MD RENNER'S CYST completed - Dutch Ivory MD ENCOUNTERS Date Type Provider Location Encounter Diag nosis - In-person encounter Office Visit Dutch Ivory MD [facility] - In-person encounter Office Visit Dutch Ivory MD [facility] Cardiomyopathy, EF 35-40%, mild , OVID-19 vaccination - In-person encounter Office Visit Dutch Ivory MD [facility] - In-person encounter Office Visit Petar Franco MD [facility] - In-person encounter Office Visit Dutch Ivory MD [facility] Cardiomyopathy, EF 35-40%, mild , 07/2024 - In-person encounter Office Visit Petar Franco MD [facility] - In-person encounter Office Visit Dutch Ivory MD [facility] Claudication bilateral - In-person encounter Office Visit Dutch Ivory MD [facility] - In-person encounter Office Visit Dutch Ivory MD [facility] - In-person encounter Office Visit Dutch Ivory MD [facility] - In-person encounter Office Visit Petar Franco MD [facility] - In-person encounter Office Visit Dutch Ivory MD [facility] Peripheral vascular disease (PVD)--geoff R pop stenosis, occlud. L [employer], retrograde flow, patent stent RSFA. 02/2023 - In-person encounter Office Visit Dutch Ivory MD [facility] PVD s/p stent to distal R SFA 2015CAD s/p CABG - SWIFT patent, other grafts occluded, diffuse distal dz ef 45%Cardiomyopathy, EF 35-40%, mild , 07/2024 - In-person encounter Office Visit Dutch Ivory MD [facility] Cardiomyopathy, EF 35-40%, mild , 07/2024 - In-person encounter Office Visit Dutch Ivory MD [facility] Cardiomyopathy, EF 35-40%, mild , 07/2024 - In-person encounter Office Visit Dutch Ivory MD [facility] Diabetes Mellitus, Type II, controlled w/ vascular complications - In-person encounter Office Visit Dutch Ivory MD [facility] Pneumonia - In-person encounter Office Visit Dutch Ivory MD [facility] - In-person encounter Office Visit Dutch Ivory MD [facility] - In-person encounter Office Visit Dutch Ivory MD [facility] - In-person encounter Office Visit Dutch Ivory MD [facility] - In-person encounter Office Visit Dutch Ivory MD [facility] - In-person encounter Office Visit Dutch Ivory MD [facility] HTN; NEG DUPLEX & USCAROTID ARTERY DISEASE;NEG DUPLEX 2010CARDIOMYOPATHY;EF 35%-40%SLEEP APNEA;NEG SLEEP STUDY 2010CAD s/p CABG - SWIFT patent, other grafts occluded, diffuse distal dz ef 45%Essential HypertensionRenal disease, chronic, mildCardiomyopathy, EF 35-40%, mild , 07/2024 - In-person encounter Office Visit Dutch Ivory MD [facility] - In-person encounter Office Visit Dutch Ivory MD [facility] - In-person encounter Office Visit Petar Franco MD [facility] PVD s/p stent to distal R SFA 2014 - In-person encounter Office Visit Dutch Ivory MD [facility] DIABETES MELLITUSBAKER'S CYSTHyperlipidemiaCARDIOMYO MARKELL;EF 35%-40%LOW HDLHYPERTRIGLYCERIDEMIAOBES ITY;WILL CONSIDER MEDIFASTDYSMETABOLIC SYNDROMEFamily History Coronary Heart Disease female < 65: - In-person encounter Office Visit Dutch Ivory MD [facility] Diabetes Mellitus, Type II, controlled w/ vascular complications - In-person encounter Office Visit Dutch Ivory MD [facility] - In-person encounter Office Visit Dutch Ivory MD [facility] - In-person encounter Office Visit Dutch Ivory MD [facility] - In-person encounter Office Visit Dutch Ivory MD [facility] - In-person encounter Office Visit Dutch Ivory MD [facility] - In-person encounter Office Visit Dutch Ivory MD [facility] - In-person encounter Office Visit Dutch Ivory MD [facility] - In-person encounter Office Visit Dutch Ivory MD [facility] CARDIOMYOPATHY;EF 35%-40% - In-person encounter Office Visit Dutch Ivory MD [facility] - In-person encounter Office Visit Javan Finney MD [facility] [id number],SVG- OM1,SVG-OM2,SVG-D1,SVG-PDAP VD s/p stent to distal R SFA 2015HTN; NEG DUPLEX & USHyperlipidemiaCARDIOMYOPA THY;EF 35%-40% - In-person encounter Office Visit Dutch Ivory MD [facility] - In-person encounter Office Visit Dutch Ivory MD [facility] HTN; NEG DUPLEX & US - In-person encounter Office Visit Dutch Ivory MD [facility] - In-person encounter Office Visit Dutch Ivory MD [facility] VITAL SIGNS Date Observation Value Provider Body Mass Index (Ratio) 24.84 kg/m2 Nate Ivory MD blood pressure, cuff size regular Ke rri Renée blood pressure, diastolic 66 mm[Hg] Ke rri Renée blood pressure, systolic 136 mm[Hg] Bisi Chinchilla oxygen saturation, oximetry 95 % Zenia Chinchilla pulse rate 79 /min Zenia magdalenoer weight E&M 123 [lb_av] Zenia magdalenoer height E&M 59 [in_i] Zenia Huff aurora Body Mass Index (Ratio) 24.84 kg/m2 Nate Ivory MD weight E&M 123 [lb_av] Mary Jane Posley pulse rate 84 /min Mary Jane Posley respiratory rate E&M 14 /min Mary Jane Posley oxygen saturation, oximetry 96 % Mary Jane Posley blood pressure, diastolic 69 mm[Hg] Le slie Posley blood pressure, systolic 121 mm[Hg] Les lie Posley blood pressure, cuff size regular Le ie Poskaiser [facility] height E&M 59 [in_i] Mary [facility]Formerly [facility] Body Mass Index (Ratio) 21.21 kg/m2 Nate Ivory MD blood pressure, diastolic 60 mm[Hg] Marylu nkLog blood pressure, systolic 105 mm[Hg] Yeni kLog blood pressure, diastolic 60 mm[Hg] Erik Cedillo blood pressure, systolic 105 mm[Hg] Naila Cedillo pulse rate 87 /min Vinita Cedillo oxygen saturation, oximetry 97 % Vinita Cedillo weight E&M 105 [lb_av] Vinita Cedillo blood pressure, cuff size large An priscilla Cedillo height E&M 59 [in_i] Vinita Cedillo Body Mass Index (Ratio) 22.62 kg/m2 Thong Franco MD blood pressure, cuff size regular Roman jose blood pressure, diastolic 61 mm[Hg] Roman rret blood pressure, systolic 100 mm[Hg] Paul barreto pulse rate 85 /min Kyree miracle y respiratory rate E&M 12 /min Kyree weight E&M 112 [lb_av] Kyree Rm y height E&M 59 [in_i] Kyree Rm y Body Mass Index (Ratio) 22.21 kg/m2 Nate Ivory MD pulse rate 89 /min Shawna Lakhani respiratory rate E&M 20 /min Shawna Lakhani blood pressure, diastolic 69 mm[Hg] cari Lakhani blood pressure, systolic 127 mm[Hg] She verna Lakhani oxygen saturation, oximetry 97 % Sahwna Lakhani weight E&M 110 [lb_av] Shawna Lakhani height E&M 59 [in_i] Shawna Lakhani blood pressure, cuff size regular cari Lakhani Body Mass Index (Ratio) 24.44 kg/m2 Thong Franco MD blood pressure, cuff size regular Ke rri Gruenenfchano blood pressure, diastolic 80 mm[Hg] Ke rri Gruenenfeld blood pressure, systolic 122 mm[Hg] Ker ri Renée oxygen saturation, oximetry 97 % Zenia Renée respiratory rate E&M 12 /min Zenia Joshua penny pulse rate 96 /min Zenia Daria [facility] weight E&M 121 [lb_av] Zenia Gruenenfe er height E&M 59 [in_i] Zenia Gruenenfe [facility] Body Mass Index (Ratio) 25.32 kg/m2 Nate Ivory MD blood pressure, diastolic 77 mm[Hg] Li nkLogalan blood pressure, systolic 131 mm[Hg] Yeni kLog pulse rate 18 /min Shawna Lakhani blood pressure, cuff size regular cari Lakhani blood pressure, diastolic 77 mm[Hg] Sherman Lakhani blood pressure, systolic 131 mm[Hg] Tricia Lakhani oxygen saturation, oximetry 96 % Shawna Lakhani respiratory rate E&M 18 /min Shawna Lakhani weight E&M 125.4 [lb_av] Shawna Lakhani height E&M 59 [in_i] Shawna Lakhani Body Mass Index (Ratio) 26.05 kg/m2 Nate Ivory MD blood pressure, diastolic 59 mm[Hg] St tayla Christiano blood pressure, systolic 129 mm[Hg] Sta rosemary Christiano oxygen saturation, oximetry 95 % Maria Esther Christiano pulse rate 91 /min Maria Esther Christiano weight E&M 129 [lb_av] Maria Esther Christiano respiratory rate E&M 18 /min Maria Estherrosemary flores height E&M 59 [in_i] Maria Estherrosemary Alvarado Body Mass Index (Ratio) 27.06 kg/m2 Nate Ivory MD blood pressure, diastolic 65 mm[Hg] Jeanna Walton blood pressure, systolic 131 mm[Hg] Anshu sosabrenda Walton respiratory rate E&M 18 /min Rosalba talavera Anton oxygen saturation, oximetry 94 % Lata Walton pulse rate 87 /min Lata mclean weight E&M 134 [lb_av] Lata mclean blood pressure, cuff size regular Jeanna Bocanegraly Anton height E&M 59 [in_i] Lata mclean Body Mass Index (Ratio) 28.88 kg/m2 Nate Ivory MD oxygen saturation, oximetry 90 % Wong Rai blood pressure, cuff size large Tr edison Rai blood pressure, diastolic 62 mm[Hg] Tr edison Rai blood pressure, systolic 130 mm[Hg] Nestor Rai respiratory rate E&M 16 /min Wong Rai pulse rate 87 /min Wong Rai weight E&M 143 [lb_av] Wong Rai height E&M 59 [in_i] Wong Rai Body Mass Index (Ratio) 28.27 kg/m2 Thong Franco MD blood pressure, cuff size regular Luis Barriga blood pressure, diastolic 70 mm[Hg] Luis Shuklaby blood pressure, systolic 120 mm[Hg] Papito Shuklaby pulse rate 98 /min Magdalena Barriga oxygen saturation, oximetry 95 % Magdalena Shuklaby respiratory rate E&M 18 /min Magdalena Shuklaby weight E&M 140 [lb_av] Magdalena Barriga height E&M 59 [in_i] Magdalena Linus Body Mass Index (Ratio) 28.64 kg/m2 Nate Ivory MD blood pressure, diastolic 60 mm[Hg] Blossom Ramirez blood pressure, systolic 116 mm[Hg] Leigh Ramirez oxygen saturation, oximetry 96 % Kevin Ramirez respiratory rate E&M 16 /min Lamar Ramirez pulse rate 90 /min Kevin leon weight E&M 141.8 [lb_av] Kevin Frank joelle height E&M 59 [in_i] Kevin Shane carolyn Body Mass Index (Ratio) 28.07 kg/m2 Nate Ivory MD blood pressure, cuff size regular Chris rri Renée blood pressure, diastolic 60 mm[Hg] Chris rri Renée blood pressure, systolic 142 mm[Hg] Bisi ri Gruenenfelder oxygen saturation, oximetry 96 % Zenia Gruenenfelder respiratory rate E&M 16 /min Zenia Lewis ruenenfelder pulse rate 87 /min Zenia Gruenenfe lder weight E&M 139 [lb_av] Zenia Gruenenfe lder height E&M 59 [in_i] Zenia Gruenenfe er Body Mass Index (Ratio) 29.28 kg/m2 Nate Ivory MD blood pressure, diastolic 78 mm[Hg] Cy ntrobelicha Lee blood pressure, systolic 137 mm[Hg] Candy melanie Lee weight E&M 145 [lb_av] Consuelo Campbel l blood pressure, cuff size regular Cy ntrobea Lee pulse rate 98 /min Consuelo Campbel l respiratory rate E&M 16 /min Consuelo Lee oxygen saturation, oximetry 93 % Consuelo Lee height E&M 59 [in_i] Consuelo Campbel l Body Mass Index (Ratio) 29.08 kg/m2 Nate Ivory MD blood pressure, diastolic 78 mm[Hg] Blossom kay O'Von blood pressure, systolic 138 mm[Hg] Leigh lazar O'Von oxygen saturation, oximetry 96 % Alix O'Von respiratory rate E&M 16 /min Alix O'Von pulse rate 89 /min Alix O'Von weight E&M 144 [lb_av] Alix O'Von height E&M 59 [in_i] Alix O'Von Body Mass Index (Ratio) 29.69 kg/m2 Nate Ivory MD blood pressure, diastolic 80 mm[Hg] Laura Ramos blood pressure, systolic 124 mm[Hg] Laurel stity Richard oxygen saturation, oximetry 92 % Chastity Richard pulse rate 89 /min Chastity Richard respiratory rate E&M 16 /min Chastit y Richard weight E&M 147 [lb_av] [facility] height E&M 59 [in_i] [facility] Richard Body Mass Index (Ratio) 30.09 kg/m2 Nate Ivory MD blood pressure, diastolic 64 mm[Hg] Er ica Pimentel-Jj blood pressure, systolic 108 mm[Hg] Hawa ca Pimentel-Jj oxygen saturation, oximetry 88 % Mari Pimentel-Jj pulse rate 97 /min Mari Pimentel- Jj weight E&M 149 [lb_av] Mari Pimentel- Jj height E&M 59 [in_i] Mari Pimentel- Jj Body Mass Index (Ratio) 28.27 kg/m2 Nate Ivory MD blood pressure, diastolic 70 mm[Hg] Da hayley Kishan blood pressure, systolic 140 mm[Hg] Dac ia Kishan oxygen saturation, oximetry 95 % April Kishan respiratory rate E&M 16 /min April V oss pulse rate 81 /min April Kishan weight E&M 140 [lb_av] April Kishan height E&M 59 [in_i] April Kishan Body Mass Index (Ratio) 27.67 kg/m2 Nate Ivory MD blood pressure, diastolic 70 mm[Hg] Da hayley Kishan blood pressure, systolic 118 mm[Hg] Dac ia Kishan oxygen saturation, oximetry 94 % April Kishan respiratory rate E&M 16 /min April V oss pulse rate 92 /min April Ikshan weight E&M 137 [lb_av] April Kishan height E&M 59 [in_i] April Kishan Body Mass Index (Ratio) 26.46 kg/m2 Nate Ivory MD blood pressure, diastolic 76 mm[Hg] Blossom Ramirez blood pressure, systolic 131 mm[Hg] Leigh Ramirez oxygen saturation, oximetry 93 % Kevin Ramirez respiratory rate E&M 18 /min Lamar Ramirez pulse rate 89 /min Kevin leon weight E&M 131 [lb_av] Kevin leon height E&M 59 [in_i] Kevin Lynn deisy Body Mass Index (Ratio) 27.87 kg/m2 Nate Ivory MD blood pressure, resting Yes Nate Ivory MD blood pressure, cuff size regular sheryl Chinchilla blood pressure, diastolic 71 mm[Hg] Chris Chinchilla blood pressure, systolic 121 mm[Hg] Bisi Chinchilla oxygen saturation, oximetry 94 % Zenia Chinchilla respiratory rate E&M 18 /min Zenia quinteros pulse rate 92 /min Zenia magdaleno weight E&M 138 [lb_av] Zenia Huff er height E&M 59 [in_i] Zenia Huff [facility] Body Mass Index (Ratio) 29.28 kg/m2 Nate Ivory MD blood pressure, cuff size regular Jeanna Crews blood pressure, diastolic 78 mm[Hg] Jeanna Crews blood pressure, systolic 120 mm[Hg] Cheryl Crews oxygen saturation, oximetry 93 % Jeaneth Crews respiratory rate E&M 16 /min Jeaneth Crews pulse rate 77 /min Jeaneth Crews weight E&M 145 [lb_av] Jeaneth Crews height E&M 59 [in_i] Jeaneth Crews blood pressure, diastolic 78 mm[Hg] Me elias Allan blood pressure, systolic 140 mm[Hg] Vanessa stringer Allan pulse rate 80 /min Edilia Allan oxygen saturation, oximetry 96 % Edilia Allan respiratory rate E&M 16 /min Edilia Allan Body Mass Index (Ratio) 29.89 kg/m2 [facility] weight E&M 148 [lb_av] Edilia Allan blood pressure, diastolic 72 mm[Hg] Nv elias Allan blood pressure, systolic 121 mm[Hg] Vanessa stringer Allan pulse rate 88 /min Edilia Allan oxygen saturation, oximetry 94 % Edilia Allan respiratory rate E&M 16 /min Edilia Allan Body Mass Index (Ratio) 29.69 kg/m2 [facility] weight E&M 147 [lb_av] Edilia Allan blood pressure, diastolic 70 mm[Hg] Nv elias Iqbal blood pressure, systolic 126 mm[Hg] Vanessa Iqbal pulse rate 87 /min Edilia Iqbal oxygen saturation, oximetry 96 % Edilia Iqbal respiratory rate E&M 16 /min Edilia Iqbal Body Mass Index (Ratio) 30.09 kg/m2 Vida lexa Rasheed weight E&M 149 [lb_av] Edilia Iqbal blood pressure, diastolic 70 mm[Hg] Me elias Allan blood pressure, systolic 131 mm[Hg] Vanessa stringer Allan Body Mass Index (Ratio) 29.49 kg/m2 [facility] pulse rate 88 /min Edilia Allan oxygen saturation, oximetry 94 % Edilia Allan respiratory rate E&M 14 /min Edilia Allan weight E&M 146 [lb_av] Edilia Allan Body Mass Index (Ratio) 29.08 kg/m2 Marguaxa everardo [facility] blood pressure, diastolic 80 mm[Hg] An kimberlyris Robby blood pressure, systolic 137 mm[Hg] Ane atris [facility] pulse rate 77 /min Aneatris [facility] oxygen saturation, oximetry 95 % Margauxatris [facility] respiratory rate E&M 18 /min Aneatri s [facility] weight E&M 144 [lb_av] Aneatris [facility] Body Mass Index (Ratio) 27.87 kg/m2 Bassam mcgee [facility] blood pressure, diastolic 80 mm[Hg] An alena [facility] blood pressure, systolic 137 mm[Hg] Ane atris [facility] pulse rate 80 /min [facility] oxygen saturation, oximetry 98 % [facility] E&M 16 /min Aneatri s [facility] weight E&M 138 [lb_av] [facility] Body Mass Index (Ratio) 23.92 kg/m2 Yonatan zaragoza Morales blood pressure, diastolic, left arm 78 mm [Hg] Nik Morales blood pressure, systolic, left arm 122 mm [Hg] Nik Morales blood pressure, diastolic, right arm 75 m m[Hg] Nik Morales blood pressure, systolic, right arm 121 m m[Hg] Nik Morales blood pressure, diastolic 78 mm[Hg] Braga blood pressure, systolic 122 mm[Hg] Ray Morales pulse rate 80 /min Nik Morales oxygen saturation, oximetry 98 % Nik Morales respiratory rate E&M 16 /min Denyeerik Morales weight E&M 118 [lb_av] Denyean Morales Body Mass Index (Ratio) 24.53 kg/m2 Hernandez i Renée blood pressure, diastolic 75 mm[Hg] Ke rri Cruzitoueneyusefelder blood pressure, systolic 127 mm[Hg] Bisi Chinchilla pulse rate 88 /min Zenia Huff lder oxygen saturation, oximetry 97 % Zenia Chinchilla respiratory rate E&M 15 /min Zenia quinteros weight E&M 121 [lb_av] Zenia Huff lder Body Mass Index (Ratio) 26.23 kg/m2 Ayana hurt Stueber blood pressure, diastolic 60 mm[Hg] Romulo light Stueber blood pressure, systolic 114 mm[Hg] Wade wells Stueber pulse rate 85 /min Queenie Stueber oxygen saturation, oximetry 92 % Queenie Stueber respiratory rate E&M 16 /min Queenie zamudioer weight E&M 129.4 [lb_av] Queenie Stueber height E&M 59 [in_i] Queenie Stueber Body Mass Index (Ratio) 24.70 kg/m2 Hernandez i Renée blood pressure, diastolic 80 mm[Hg] Ke rri Renée blood pressure, systolic 138 mm[Hg] Bisi Chinchilla pulse rate 88 /min Zenia magdalenoer oxygen saturation, oximetry 98 % Zenia Chinchilla respiratory rate E&M 17 /min Zenia quinteros weight E&M 126 [lb_av] Zenia magdalenoer blood pressure, diastolic 66 mm[Hg] Chris saucedo Renée blood pressure, systolic 116 mm[Hg] Bisi taylor Renée pulse rate 83 /min Zenia Daria yancey oxygen saturation, oximetry 98 % Zenia Renée respiratory rate E&M 16 /min Zenia Lewis aldair weight E&M 130.0 [lb_av] Zenia Francois garcia blood pressure, diastolic 74 mm[Hg] Della seph [place] blood pressure, systolic 118 mm[Hg] Eleno king [place] pulse rate 90 /min [facility] oxygen saturation, oximetry 98 % [facility] respiratory rate E&M 16 /min [facility] E&M 135 [lb_av] Naren [facility] blood pressure, diastolic 63 mm[Hg] Braga blood pressure, systolic 107 mm[Hg] Ray Morales pulse rate 73 /min Nik Morales oxygen saturation, oximetry 94 % Nik Morales respiratory rate E&M 16 /min Nik Morales weight E&M 132 [lb_av] Nik Morales blood pressure, diastolic 66 mm[Hg] Blossom kay O'Von blood pressure, systolic 119 mm[Hg] Leigh lazar O'Von pulse rate 81 /min Alix O'Von oxygen saturation, oximetry 95 % Alix O'Von respiratory rate E&M 16 /min Alix O'Von weight E&M 142 [lb_av] Alix O'Von Body Mass Index (Ratio) 28.62 kg/m2 Lauren Craig NP weight E&M 146 [lb_av] Patrick olivo NP height E&M 60 [in_i] Patrick Diaz geovani [employer] SUPER[employer] weight E&M 147 [lb_av] Mcay Garcianard height E&M 60 [in_i] Macy Carrasco blood pressure, diastolic 75 mm[Hg] Da roman Baca blood pressure, systolic 120 mm[Hg] Deric Baca pulse rate 72 /min Ariadne Baca oxygen saturation, oximetry 96 % Ariadne Baca respiratory rate E&M 16 /min Bebeto Baca weight E&M 147 [lb_av] Ariadne Baca blood pressure, diastolic 67 mm[Hg] Da roman Baca blood pressure, systolic 117 mm[Hg] Deric Baca pulse rate 86 /min Ariadne Baca oxygen saturation, oximetry 97 % Ariadne Baca respiratory rate E&M 16 /min Bebeto lilo Baca weight E&M 150 [lb_av] Ariadne Baca blood pressure, diastolic 63 mm[Hg] Della seph [place] blood pressure, systolic 133 mm[Hg] Eleno eph [place] pulse rate 74 /min Naren [place] oxygen saturation, oximetry 98 % Naren [place] respiratory rate E&M 16 /min Naren [place] weight E&M 147 [lb_av] Naren [place] blood pressure, diastolic 72 mm[Hg] Della seph [place] blood pressure, systolic 119 mm[Hg] Eleno eph [place] pulse rate 89 /min Naren [place] oxygen saturation, oximetry 96 % Naren [place] respiratory rate E&M 16 /min Naren [place] weight E&M 147 [lb_av] Naren [place] Body Mass Index (Ratio) 28.26 kg/m2 Nate Ivory MD blood pressure, diastolic, left arm 76 mm [Hg] Giacomo Stanford blood pressure, systolic, left arm 110 mm [Hg] Giacomo Stanford blood pressure, diastolic, right arm 74 m m[Hg] Giacomo Stanford blood pressure, systolic, right arm 130 m m[Hg] Giacomo Stanford pulse rate 72 /min Giacomo Stanford oxygen saturation, oximetry 94 % Giacomo Stanford respiratory rate E&M 18 /min Giacomo gary weight E&M 149 [lb_av] Giacomo Stanford height E&M 61 [in_i] Giacomo Stanford ALLERGIES Allergy Name Onset Date Reaction Criticality Status SIMVASTATIN/ ZOCOR MYALGIAS MYALGIAS High Criti cality active ATORVASTATIN/ LIPITOR MYALGIAS MYALGIAS High Cr iticality active ROSUVASTATIN/ CRESTOR myalgias myalgias High Cr iticality active STATINS myalgias, rashes , nausea/vomiting High Criticality active RICE High Criticality active SPAGHETTI High Criticality active RESULTS Date Observation Value Provider Reference Range Interpretation Location cholesterol, non-HDL, total 190 MG/DL (CALC) [facility] <130 High cholesterol/HDL ratio, serum, percent 6.1 (calc) [facility] <5.0 High LDL cholesterol, serum * mg/dL (calc) [facility] triglyceride, serum, fasting 516 mg/dL [facility] <150 High HDL cholesterol, serum 37 mg/dL [facility] > OR = 50 Low cholesterol, serum 227 mg/dL [facility] <200 High platelet count 292 10*3/mm3 Raul Fu hematocrit, blood 47.7 % Raul Fu international normalized ratio (INR) 1.0 Raul Fu blood glucose, random 138 mg/dL Raul Fu creatinine, serum 0.87 [facility] nitrogen, blood 8 mg/dL jason Fu potassium, serum 3.9 mmol/L [facility] sodium, serum 140 mmol/L [facility] platelet count 316 10*3/mm3 jason Fu hematocrit, blood 43.5 % jason Fu alanine aminotransferase (SGPT), serum 38 1/L [facility] aspartate aminotransferase (SGOT), serum 46 1/L [facility] creatinine, serum 1.04 mg/dL [facility] potassium, serum 4.0 mmol/L [facility] sodium, serum 141 mmol/L [facility] hemoglobin A1C, blood, as % of total hemoglobin 6.8 % jason Fu triglyceride, serum, fasting 170 mg/dL jason Fu HDL cholesterol, serum 27 mg/dL jason Fu LDL cholesterol, serum 77 mg/dL [facility] Fu cholesterol, serum 138 mg/dL [facility] yeast identified on urinalysis No jason Fu mucus on urinalysis Yes jason Fu urine crystals, microscopic None jason Fu epithelial cells, urine, per microscopy moderate jason Fu casts, urine None Raul Fu WBC urine on microscopy 8-12 jason Fu bacteria, urine microscopy [facility] RBC urine by microscopy 0-2 jason Fu leukocyte esterase, urine, by dipstick Negative jason Fu urobilinogen, urine, semiquantitative (dipstick) Normal jason Fu nitrite, urine, semiquantitative Positive Raul Fu RBC, urine, dipstick Negative Raul Fu [facility], [facility], by test strip Negative Raul Fu glucose, urine, semiquantitative Normal [facility] protein, urine, semiquantitative (dipstick) Negative [facility] Tank pH, urine, semiquantitative 5.0 [facility] Tank specific gravity, urine 1.015 [facility] urine color Pale Yellow [facility] appearance, urine Hazy [facility] Vitamin D, 25 Hydroxy D3 7 ng/mL [facility] Vitamin D, 25 Hydroxy D2 74 ng/mL [facility] platelet count 298 10*3/uL [facility] red blood cell distribution width 12.4 % [facility] Tank mean corpuscular hemoglobin concentration, RBC 33.5 g/dL [facility] Tank mean corpuscular hemoglobin, RBC 31.5 pg [facility] Tank mean corpuscular volume, RBC 94.1 fL [facility] Tank hematocrit, blood 43.3 % [facility] hemoglobin, blood 14.5 g/dL [facility] erythrocyte (RBC) count 4.60 10*6/mm3 [facility] leukocyte count, blood 5.9 10*3/mm3 [facility] anion gap, serum 10.6 [facility] Tank globulins, serum, total 3.0 g/dL [facility] Tank estimated glomerular filtration rate 44 mL/min [facility] albumin/globulin ratio, serum 1.4 [facility] protein, total, serum 7.1 g/dL [facility] Tank albumin, serum 4.1 g/dL [facility] bilirubin, serum, total 0.39 mg/dL [facility] alkaline phosphatase, serum 62 1/L [facility] Tank alanine aminotransferase (SGPT), serum 33 1/L [facility] aspartate aminotransferase (SGOT), serum 24 1/L [facility] calcium, serum 9.3 mg/dL [facility] blood glucose, fasting 100 mg/dL [facility] creatinine, serum 1.28 mg/dL [facility] urea nitrogen, blood 15.3 mg/dL [facility] carbon dioxide, serum, total 30 mmol/L [facility] chloride, serum 100 mmol/L [facility] potassium, serum 3.6 mmol/L [facility] sodium, serum 137 mmol/L [facility] cholesterol/HDL ratio, serum, percent 4.5 (calc) [facility] (< OR = 5.0) Normal LDL cholesterol, serum 82 MG/DL (CALC) [facility] (<130) Normal triglyceride, serum, fasting 195 mg/dL [facility] (<150) High HDL cholesterol, serum 35 mg/dL [facility] (> OR = 46) Low cholesterol, serum 156 mg/dL [facility] (125-200) Normal alanine aminotransferase (SGPT), serum 20 1/L Lacretia Craig NP aspartate aminotransferase (SGOT), serum 24 1/L Lacretia Craig NP cholesterol/HDL ratio, serum 5.9 Lacreti Craig NP triglyceride, serum, fasting 234 mg/dL Lacretia Craig NP HDL cholesterol, serum 25 mg/dL Lacretia Craig NP LDL cholesterol, serum 77 mg/dL Lacretia Craig NP cholesterol, serum 148 mg/dL Lacretia Craig NP triglyceride, target level 150 mg/dL Lacretia Craig NP HDL cholesterol, serum, target level 40 mg/dL Lacretia Craig NP LDL target level 70 mg/dL Lacreti Craig NP cholesterol, target level 200 mg/dL Lacretia Craig NP anion gap, serum 10.9 [facility] estimated glomerular filtration rate 43 mL/min [facility] calcium, serum 9.2 mg/dL [facility] blood glucose, fasting 166 mg/dL [facility] creatinine, serum 1.30 mg/dL [facility] urea nitrogen, blood 18.8 mg/dL [facility] carbon dioxide, serum, total 32 mmol/L [facility] chloride, serum 101 mmol/L [facility] potassium, serum 3.9 mmol/L [facility] sodium, serum 140 mmol/L [facility] prothrombin time (patient) 10.7 s [facility] international normalized ratio (INR) 1.0 [facility] platelet count 284 10*3/uL [facility] red blood cell distribution width 12.4 % [facility] mean corpuscular hemoglobin concentration, RBC 33.3 g/dL [facility] mean corpuscular hemoglobin, RBC 30.6 pg [facility] mean corpuscular volume, RBC 91.9 fL [facility] hematocrit, blood 44.2 % [facility] hemoglobin, blood 14.7 g/dL [facility] erythrocyte (RBC) count 4.81 10*6/mm3 [facility] monocytes as percent of blood leukocytes 8.8 % [facility] lymphocytes as percent of blood leukocytes 29.5 % [facility] leukocyte count, blood 5.5 10*3/mm3 [facility] alanine aminotransferase (SGPT), serum 20 1/L [facility] 6-40 Normal aspartate aminotransferase (SGOT), serum 31 1/L [facility] 10-35 Normal alkaline phosphatase, serum 41 1/L [facility] 33-130 Normal bilirubin, serum, indirect 0.6 MG/DL (CALC) [facility] 0.2-1.2 Normal bilirubin, serum, direct 0.3 mg/dL [facility] < OR = 0.2 High bilirubin, serum, total 0.9 mg/dL [facility] 0.2-1.2 Normal albumin/globulin ratio, serum 1.6 (calc) [facility] 1.0-2.1 Normal globulins, serum, total 2.7 G/DL (CALC) [facility] 2.2-3.9 Normal albumin, serum 4.4 g/dL [facility] 3.6-5.1 Normal protein, total, serum 7.1 g/dL [facility] 6.2-8.3 Normal cholesterol/HDL ratio, serum, percent 10.6 (calc) [facility] < OR = 5.0 High LDL cholesterol, serum 81 MG/DL (CALC) [facility] <130 Normal triglyceride, serum, fasting 266 mg/dL [facility] <150 High HDL cholesterol, serum 14 mg/dL [facility] > OR = 46 Low cholesterol, serum 148 mg/dL [facility] 125-200 Normal alanine aminotransferase (SGPT), serum 21 1/L [facility] 6-40 Normal aspartate aminotransferase (SGOT), serum 32 1/L [facility] 10-35 Normal alkaline phosphatase, serum 49 1/L [facility] 33-130 Normal bilirubin, serum, indirect 0.4 MG/DL (CALC) [facility] 0.2-1.2 Normal bilirubin, serum, direct 0.1 mg/dL [facility] < OR = 0.2 Normal bilirubin, serum, total 0.5 mg/dL [facility] 0.2-1.2 Normal albumin/globulin ratio, serum 1.6 (calc) [facility] 1.0-2.1 Normal globulins, serum, total 2.7 G/DL (CALC) [facility] 2.2-3.9 Normal albumin, serum 4.3 g/dL [facility] 3.6-5.1 Normal protein, total, serum 7.0 g/dL [facility] 6.2-8.3 Normal basophils as percent of blood leukocytes 0.3 % [facility] Normal eosinophils as percent of blood leukocytes 5.4 % [facility] Normal monocyte count, blood 9.6 % [facility] Normal lymphocyte count, blood 33.8 % [facility] Normal neutrophils as percent of blood leukocytes 50.9 % [facility] Normal basophils, absolute, manual 18 cells/mcL [facility] 0-200 Normal eosinophils, absolute, manual 319 cells/mcL [facility] 15-500 Normal monocytes, absolute, manual 566 cells/mcL [facility] 200-950 Normal lymphocytes, absolute 1994 CELLS/UL [facility] 850-3900 Normal Absolute Neutrophil count 3003 cells/mcL [facility] 5548-1328 Normal platelet count 368 THOUSAND/UL [facility] 140-400 Normal red blood cell distribution width 13.5 % [facility] 11.0-15.0 Normal mean corpuscular hemoglobin concentration, RBC 33.4 G/DL [facility] 32.0-36.0 Normal mean corpuscular hemoglobin, RBC 31.6 pg [facility] 27.0-33.0 Normal mean corpuscular volume, RBC 94.5 fL [facility] 80.0-100.0 Normal hematocrit, blood 41.8 % [facility] 35.0-45.0 Normal hemoglobin electrophoresis, blood 14.0 [facility] 11.7-15.5 Normal erythrocyte (RBC) count 4.42 MILLION/UL [facility] 3.80-5.10 Normal leukocyte (white blood cells) count, blood 5.9 THOUSAND/UL [facility] 3.8-10.8 Normal calcium, serum 9.5 mg/dL [facility] 8.6-10.2 Normal carbon dioxide, venous blood 25 mmol/L [facility] 21-33 Normal chloride, serum 102 mmol/L [facility] 98-110 Normal potassium, serum 4.5 mmol/L [facility] 3.5-5.3 Normal sodium, serum 139 mmol/L [facility] 135-146 Normal urea nitrogen/creatinine ratio, serum 16 (calc) [facility] 6-22 Normal Estimated Glomerular Filtration Rate (calc) 41 mL/min/{1.7 3_m2} [facility] > OR = 60 Low creatinine, serum 1.52 mg/dL [facility] 0.60-1.18 High urea nitrogen, blood 24 mg/dL [facility] 7-25 Normal blood glucose, random 99 mg/dL [facility] 65-99 Normal cholesterol/HDL ratio, serum, percent 5.8 (calc) [facility] < OR = 5.0 High LDL cholesterol, serum 161 MG/DL (CALC) [facility] <130 High HDL cholesterol, serum 41 mg/dL [facility] > OR = 46 Low cholesterol, serum 237 mg/dL [facility] 125-200 High triglyceride, serum, fasting 175 mg/dL [facility] <150 High HISTORY OF MEDICATION USE Medication Status Instructions Dates Provider Indications Com ments Jardiance 10 mg tablet active TAKE 1 TABLET BY MOUTH EVERY DAY Karson Olguin Repatha SureClick 140 mg/mL pen injector active Inject 1 pen injector subcutaneously every two weeks Karson Olguin gabapentin 100 mg capsule active TAKE 1 CAPSULE BY MOUTH TWICE DAILY Karson Olguin metoclopramide HCl 5 mg tablet active Karson Olguin alendronate 70 mg tablet active TAKE 1 TABLET BY MOUTH ONCE A WEEK Karson Olguin potassium chloride 20 mEq tablet,ER particles/rubi ls active Karson Olguin potassium chloride 20 mEq tablet extended release completed TAKE 1 TABLET BY MOUTH ONCE DAILY - Karson Olguin Nexletol 180 mg tablet completed Take 1 tablet by mouth once a day - Karson Olguin Repatha SureClick 140 mg/mL pen injector completed INJECT 1 PEN SUBCUTANEOUSLY EVERY TWO WEEKS - Maki Juan Repatha SureClick 140 mg/mL pen injector completed INJECT 1 PEN SUBCUTANEOUSLY EVERY TWO WEEKS - Maki Martinez tramadol 50 mg tablet active TAKE 1 TABLET BY MOUTH AT BEDTIME NEEDED FOR LEG PAIN Dutch Ivory MD nitroglycerin 0.4 mg tablet, sublingual active DISSOLVE 1 TABLET UNDER THE TONGUE NEEDED FOR CHEST PAIN EVERY 5 MINUTES UP TO 3 TIMES. IF NO RELIEF CALL 911. Karson Olguin isosorbide mononitrate 30 mg tablet extended release 24 hr completed Take 1 tablet by mouth once a day - Karson Olguin Praluent Pen 150 mg/mL pen injector completed Inject 1 pen injector subcutaneously once every two weeks - Karson Olguin PVD s/p stent to distal R SFA 2015 Vascepa 1 gram capsule completed TAKE 2 CAPSULES BY MOUTH TWICE DAILY - Mari Berg tramadol 50 mg tablet completed TAKE 1 TABLET BY MOUTH AT BEDTIME NEEDED FOR LEG PAIN - Dutch Ivory MD isosorbide mononitrate 30 mg tablet extended release 24 hr completed Take 1 tablet by mouth once a day TAKE 1 TABLET BY MOUTH EVERY DAY - Zenia Chinchilla Vascepa 1 gram capsule completed 2 capsule by mouth twice a day - Dutch Ivory MD tramadol 50 mg tablet completed Take 1 tablet every night as needed - Duthc Ivory MD pentoxifylline 400 mg tablet extended release completed Take 1 tablet once a day - Kevin Ramirez ICOSAPENT 1GM CAP completed Take 2 capsules by mouth twice daily - Dutch Ivory MD Repfarideh SureClick 140 mg/mL pen injector completed Inject 14 mg every two weeks - Karson Olguin [facility] [id number] PRAVASTATIN SODIUM 20 MG ORAL TABLET completed one tab daily - Maki Martinez Vitamin D3 50 mcg (2,000 unit) capsule active 2 capsule once a day Chastity Richard EZETIMIBE 10 MG ORAL TABLET completed TAKE 1 TABLET BY MOUTH ONCE DAILY - Alix Kearney LEVAQUIN 500 MG ORAL TABLET completed ONE TAB. DAILY for 7 days - Mari Guzman TESSALON PERLES 100 MG ORAL CAPSULE completed 1 tid prn - Mari Guzman LIPITOR 20 MG ORAL TABLET completed ONE TAB. [id number]-[id number] - Chastity Richard vitamin E (dl, acetate) 400 unit capsule active 1 tablet once a day Kevin Ramirez VITAMIN D TABLET completed take 3 pills a day - Kevin Ramirez ZETIA 10 MG ORAL TABLET completed ONE TAB. DAILY - Zenia Chinchilla clopidogrel 75 mg tablet active Take 1 tablet once a day Kevin Ramirez LIVALO 4 MG ORAL TABLET completed One tablet daily - Kevin Ramirez VITAMIN C CAPSULE active as directed Edilia Allan VITAMIN E 400 UNIT ORAL CAPSULE completed ONE TAB. DAILY - Dutch Ivory MD PRAVASTATIN SODIUM 20 MG ORAL TABLET completed take one tablet daily - Dutch Ivory MD Pravachol Amaryl 2 mg tablet completed once a day - Karson Olguin Fish Oil 300-1,000 mg capsule,delayed release(DR/EC) completed 1 tablet three times a day - Javan Finney MD GABAPENTIN 400 MG ORAL CAPSULE completed 1 tab three times daily - Dutch Ivory MD ULTRAM 50 MG ORAL TABLET completed po bid - Aneatrsuzette Bustamante LYRICA CAPSULE completed take as directed - Aneatrsuzette Bustamante SIMVASTATIN 20 MG ORAL TABLET completed ONE TAB. DAILY(replaces vytorin) - Edilia Allan Daily Multi-Vitamin tablet active 1 tablet once a day Petar Franco MD PROMIPEXOLE 0.125MG active Take 1 twice a day Zenia Chinchilla TIMOLOL MALEATE SOLN active as directed Zenia Chinchilla HYDROCODONE-ACET AMINOPHEN 5-325 MG ORAL TABLET completed take one pill every 6 hours as needed for pain - Aneatris Robby GABAPENTIN 400 MG ORAL CAPSULE completed one pill twice a day - Aneatris Robby METOCLOPRAMIDE HCL 10 MG ORAL TABLET completed 1 table before meals - Nik Morales ONDANSETRON 4 MG ORAL TABLET DISINTEGRATING completed as needed for nausea - Aneatris Robby VITAMIN C ORAL TABLET CHEWABLE completed 2 a day - Zenia Chinchilla FISH OIL 1000 MG ORAL CAPSULE completed 4 times daily - Zenia Chinchilla metformin 1,000 mg tablet completed 1 twice a day - Karson Olguin TRAMADOL HCL 50 MG ORAL TABLET completed take one tab PRN for pain - Aneatris Robby PLAVIX 75 MG ORAL TABLET completed ONE TAB. DAILY - Leana Crews RN omeprazole 40 mg capsule,delayed release(/EC) active Take as needed Dutch Ivory MD MULTIVITAMINS TABS completed take one pill a day - Zenia Chinchilla potassium chloride 20 mEq packet completed Take 1 packet dissolved in water once a day - Karson VALE Q-10 VITAMIN E FISH OIL CAPSULE completed take one daily - Zenia Chinchilla FENOFIBRATE 54 MG ORAL TABLET completed one tablet daily - Queenie Triana FLAX SEED OIL 1000 MG ORAL CAPSULE completed 1 capsule by mouth daily - Zenia Chinchilla LANTUS SOLUTION completed as directed - Zenia Chinchilla spironolactone 25 mg tablet active 2 tablet once a day Petar Franco MD ASCRIPTIN 325 MG ORAL TABLET completed 1 tab by mouth daily - Zenia Chinchilla PRAVACHOL 40 MG ORAL TABLET completed ONE TAB. DAILY - Queenie Triana EFFIENT 10 MG ORAL TABLET completed once daily - Dutch Ivory MD DORZOLAMIDE HCL-TIMOLOL MAL SOLUTION completed one drop twice a day - Aneatris Brown RESTASIS 0.05 % OPHTHALMIC EMULSION completed one drop twice a day - Zenia Chinchilla POTASSIUM 99 MG ORAL TABLET completed take one daily - Zenia Chinchilla LISINOPRIL 5 MG ORAL TABLET completed ONE TAB. DAILY - Zenia Chinchilla ANTARA 43 MG ORAL CAPSULE completed one tablet daily - Zenia Chinchilla ACID CONTROLLER 10 MG ORAL TABLET completed taek one a day - Zenia Chinchilla TRILIPIX 135 MG ORAL CAPSULE DELAYED RELEASE completed once daily - Leana Ma RN CRESTOR 10 MG ORAL TABLET completed ONE TAB. eveery other day - Ariadne Baca VITAMIN D (ERGOCALCIFEROL) 65414 UNIT ORAL CAPSULE completed once a week - Zenia Chinchilla FLAX SEED OIL CAPSULE completed 1 capsule by mouth daily - Ariadne Baca CALCIUM 600-D TABLET completed 2 tablets by mouth daily - Ariadne Baca ACID MANAGER REGIONAL TABLET completed 150mg 1tablet by mouth once dialy - Ariadne Baca COSOPT SOLUTION completed 1 drop on each eye daily - Ariadne Baca MEDROL TABLET THERAPY PACK completed take as directed - Dutch Ivory MD LOVAZA 1 GM ORAL CAPSULE completed 2 capsules twice daily Dispense as written - Zenia Chinchilla NAPROXEN 500 MG ORAL TABLET completed 1 tablet by mouth twice daily as needed - Ariadne Baca MULTIVITAMINS ORAL CAPSULE completed ONE TAB. DAILY - Naren Manrachel GLUCOSAMINE-DONY DROITIN-MSM TABS completed 1 QD - Naren Callaway PEPCID 20 MG ORAL TABLET completed ONE TAB DAILY - Naren Callaway VYTORIN 10-40 MG ORAL TABLET completed one tab daily - Tyrone Lawrence ENALAPRIL MALEATE 10 MG ORAL TABLET completed ONE QD - Ariadne Baca GLIPIZIDE 5 MG ORAL TABLET completed 1 tab twice daily - Queenie Stcarlos FUROSEMIDE 20 MG ORAL TABLET completed 1 tablet by mouth daily - Queenie Triana METFORMIN HCL 500 MG ORAL TABLET completed 2 tablets by mouth twice daily - Ariadne Baca ADULT ASPIRIN EC LOW STRENGTH 81 MG ORAL TABLET DELAYED RELEASE active once a day Petar Franco MD GEMFIBROZIL 600 MG ORAL TABLET completed ONE TAB TWICE DAILY - Della Davidson SOCIAL HISTORY Date Observation Value Provider drug use none Karson Olguin alcohol use no Karson Olguin passive cigarette sm idalmis exposure no Karson Olguin smoking status Never smoker Karson Olguin drug use none Karson Olguin alcohol use no Karson Olguin passive cigarette sm idalmis exposure no Karson Olguin smoking status Never smoker Karson Olguin drug use none Vinitalicha Cedillo alcohol use no Vinitalicha Cedillo passive cigarette sm idalmis exposure no Vinita Mamadou smoking status Never smoker Vinita Mamadou social history E&M Lives with family/friends M arital Status: E thnicity: Smoking History: P marcus has never smoked. Petar Franco MD physical exercise, f requency, days per week yes Petar Franco MD caffeine use, averag e drinks per day 1+ Petar Franco MD passive cigarette sm idalmis exposure no Petar Franco MD smoking status Never smoker Petar Franco MD social history reviewed E&M revi ewed - no changes required Petar Franco MD smoking status Never smoker Shawna Lesvia social history reviewed E&M revi ewed - no changes required Karson Olguin alcohol use no Petar Franco MD drug use none Petar Franco MD smoking status Never smoker Petar Franco MD physical exercise, f requency, days per week yes Petar Fracno MD caffeine use, averag e drinks per day 1+ Petar Franco MD passive cigarette sm idalmis exposure no Petar Franco MD social history reviewed E&M revi ewed - no changes required Petar Franco MD social history E&M Lives with family/friends M arital Status: E thnicity: Smoking History: P marcus has never smoked. Karson Olguin smoking status Never smoker Shawna Lakhani social history reviewed E&M revi ewed - no changes required Karson Olguin social history E&M Lives with family/friends M arital Status: E thnicity: Smoking History: P marcus has never smoked. Karson Olguin physical exercise, f requency, days per week yes Maria Esther Alvarado caffeine use, averag e drinks per day 1+ Maria Esther Alvarado passive cigarette sm idalmis exposure no Maria Esther Alvarado smoking status Never smoker Maria Esther Alvarado social history reviewed E&M revi ewed - no changes required Dutch Ivory MD social history E&M Lives with family/friends M arital Status: E thnicity: Smoking History: P marcus has never smoked. Demetrius Isabel physical exercise, f requency, days per week yes Demetrius Isabel caffeine use, averag e drinks per day 1+ Demetrius Isabel passive cigarette sm idalmis exposure no Demetrius Isabel smoking status Never smoker Demetrius Isabel social history reviewed E&M revi ewed - no changes required Demetrius Isabel social history E&M Lives with family/friends M arital Status: E thnicity: Smoking History: P marcus has never smoked. Ilda Blanc social history reviewed E&M revi ewed - no changes required Ilda Blanc smoking status Never smoker Wong weaver social history E&M Lives with family/friends M arital Status: E thnicity: S moking History: P marcus has never smoked. Petar Franco MD social history reviewed E&M revi ewed - no changes required Petar Franco MD social history E&M Lives with family/friends M arital Status: E thnicity: Smoking History: P marcus has never smoked. Karson Olguin social history reviewed E&M revi ewed - no changes required Karson Olguin physical exercise, f requency, days per week yes Kevin Ramirez caffeine use, averag e drinks per day 1+ Kevin Ramirez passive cigarette sm idalmis exposure no Kevin Ramirez smoking status Never smoker Kevin Green social history E&M Lives with family/friends M arital Status: E thnicity: Smoking History: P marcus has never smoked. Dutch Ivory MD social history reviewed E&M revi ewed - no changes required Dutch Ivory MD physical exercise, f requency, days per week yes Zenia Chinchilla caffeine use, averag e drinks per day 1+ Zenia Chinchilla passive cigarette sm idalmis exposure no Zenia Renée smoking status Never smoker Zenia Eastelizabeth valdez social history E&M Lives with family/friends M arital Status: E thnicity: Smoking History: P marcus has never smoked. Demetrius Isabel social history reviewed E&M revi ewed - no changes required Demetrius Isabel physical exercise, f requency, days per week yes Consuelo Lee caffeine use, averag e drinks per day 1+ Consuelo Lee passive cigarette sm idalmis exposure no Consuelo Lee smoking status Never smoker Consuelo arenas social history E&M Lives with family/friends M arital Status: E thnicity: Smoking History: P marcus has never smoked. Demetrius Isabel social history reviewed E&M revi ewed - no changes required Demetrius Isabel physical exercise, f requency, days per week yes Alix Kearney caffeine use, averag e drinks per day 1+ Alix O'Von passive cigarette sm idalmis exposure no Alix O'Von smoking status Never smoker Alix BrownVon social history E&M Lives with family/friends M arital Status: E thnicity: Smoking History: P marcus has never smoked. Dutch Ivory MD social history reviewed E&M revi ewed - no changes required Dutch Ivory MD physical exercise, f requency, days per week yes Chastity Richard caffeine use, averag e drinks per day 1+ Chastity Richard passive cigarette sm idalmis exposure no Chastity Richard smoking status Never smoker Lizbet Hogu e social history E&M Lives with family/friends M arital Status: E thnicity: Smoking History: P marcus has never smoked. Dutch Ivory MD physical exercise, f requency, days per week yes Mari Pimentel-Jj alcohol use, average drinks per day none Mari Pimentel-Jj alcohol use no Mari Pimentel- Jj caffeine use, averag e drinks per day 1+ Mari Pimentel-Jj drug use none Mari Pimentel- Jj passive cigarette sm idalmis exposure no Mari Pimentel-Jj smoking status Never smoker Mari Hitchcock n-Jj social history reviewed E&M revi ewed - no changes required Mair Pimentel-Jj smoking status Never smoker Shawna Olson in [employer] social history reviewed E&M revi ewed - no changes required Shawna Seals NP physical exercise, f requency, days per week yes April Kishan alcohol use, average drinks per day none April Kishan alcohol use no April Kishan caffeine use, averag e drinks per day 1+ April Kishan drug use none April Kishan passive cigarette sm idalmis exposure no April Kishan social history E&M Lives with family/friends M arital Status: E thnicity: Smoking History: P marcus has never smoked. Dutch Ivory MD social history reviewed E&M revi ewed - no changes required Dutch Ivory MD physical exercise, f requency, days per week yes April Kishan alcohol use, average drinks per day none April Kishan alcohol use no April Kishan caffeine use, averag e drinks per day 1+ April Kishan drug use none April Kishan passive cigarette sm idalmis exposure no April Kishan smoking status Never smoker [facility] social history reviewed E&M revi ewed - no changes required Dutch Ivory MD number of grandchildren Dutch Ivory MD T chivo Ivory MD physical exercise, f requency, days per week yes Kevin Ramirez alcohol use, average drinks per day none Kevin Ramirez alcohol use no Kevin Lynn carolyn caffeine use, averag e drinks per day 1+ Kevin Ramirez drug use none Kevin Lynn vickiedeisy passive cigarette sm idalmis exposure no Kevin Ramirez smoking status Never smoker Kevin Aguiar malaika social history reviewed E&M revi ewed - no changes required Dutch Ivory MD social history E&M Lives with family/friends M arital Status: E thnicity: Smoking History: P marcus has never smoked. Dutch Ivory MD physical exercise, f requency, days per week yes Zenia Chinchilla alcohol use, average drinks per day none Zenia Chinchilla alcohol use no Zenia yancey caffeine use, averag e drinks per day 1+ Dutch Ivory MD drug use none Zenia Mcgheebibiana yancey passive cigarette sm idalmis exposure no Zenia Shizhaneyusefjose smoking status Never smoker Zenia Mckenna josé miguel social history reviewed E&M revi ewed - no changes required Dutch Ivory MD physical exercise, f requency, days per week yes Jeaneth Crews alcohol use, average drinks per day none Jeaneth Crews alcohol use no Jeaneth Crews caffeine use, averag e drinks per day yes Jeaneth Crews drug use none Jeaneth Crews passive cigarette sm idalmis exposure no Jeaneth Crews smoking status Never smoker Jeaneth Crews social history reviewed E&M revi ewed - no changes required Edilia Allan physical exercise, f requency, days per week yes Edilia Allan alcohol use, average drinks per day none Edilia Allan alcohol use no Edilia Allan caffeine use, averag e drinks per day yes Edilia Allan drug use none Edilia Allan passive cigarette sm idalmis exposure no Edilia Allan smoking status Never smoker Edilia Casillaserik viramontes social history reviewed E&M revi ewed - no changes required Dutch Ivory MD physical exercise, f requency, days per week yes Edilia Csaillasann alcohol use, average drinks per day none Edilia Allan alcohol use no Edilia Allan caffeine use, averag e drinks per day yes Edilia Casillasann drug use none Edilia Allan passive cigarette sm idalmis exposure no Edilia Allan smoking status Never smoker Edilia Casillaserik viramontes social history reviewed E&M revi ewed - no changes required Dutch Ivory MD physical exercise, f requency, days per week yes Edilia Iqbal alcohol use, average drinks per day none Edilia Iqbal alcohol use no Edilia Iqbal caffeine use, averag e drinks per day yes Edilia Iqbal drug use none Edilia Iqbal passive cigarette sm idalmis exposure no Edilia Iqbal smoking status Never smoker Edilia Iqbal social history reviewed E&M revi ewed - no changes required Petar Franco MD physical exercise, f requency, days per week yes Edilia Allan alcohol use, average drinks per day none Edilia Allan caffeine use, averag e drinks per day yes Edilia Allan drug use none Edilia Allan passive cigarette sm idalmis exposure no Edilia Allan smoking status Never smoker Edilia Sapp ana m social history reviewed E&M i ewed - no changes required Joseph Bustamante social history reviewed E&M revi ewed - no changes required Dutch Ivory MD social history reviewed E&M reviewed Dutch Ivory MD social history reviewed E&M reviewed Dutch Ivory MD social history reviewed E&M reviewed Dutch Ivory MD social history reviewed E&M reviewed Dutch Ivory MD drug use none Dutch Ivory MD passive cigarette sm idalmis exposure no Zenia Chinchilla smoking status never smoker Zenia valdez social history reviewed E&M reviewed Dutch Ivory MD social history reviewed E&M reviewed Dutch Ivory MD social history reviewed E&M reviewed Dutch Ivory MD drug use none Dutch Ivory MD social history reviewed E&M reviewed Dutch Ivory MD smoking status never Lacretia Prashant il CONTROL SUPERVISOR social history reviewed E&M reviewed Patrick Craig CONTROL SUPERVISOR social history reviewed E&M reviewed Javan Finney MD social history reviewed E&M reviewed Kin Dickey RN social history reviewed E&M reviewed Kin Dickey RN social history E&M L klarissa with family/friends M arital Status: E thnicity: Kin Dickey RN social history reviewed E&M reviewed Kin Dickey RN social history E&M Marital Status: Marrie d Dutch Ivory MD smoking status Quit Dutch Ivory MD social history reviewed E&M reviewed Dutch Ivory MD physical exercise, f requency, days per week yes [employer] caffeine use, averag e drinks per day yes [employer] alcohol use, average drinks per day none [employer] smoking status Non-smoker [employer] FUNCTIONAL STATUS Date Observation Value Provider HRA, CV Assess/Plan, Angina (inactive) Management Plan continue current therapy Karson Ahmedzai HRA, CV Assess/Plan, Angina (inactive) Management Plan continue current therapy Karson Ahmedzai HRA, CV Assess/Plan, Angina (inactive) Management Plan continue current therapy Karson Ahmedzai HRA, CV Assess/Plan, Angina (inactive) Management Plan continue current therapy Petar Franco MD HRA, CV Assess/Plan, Angina (inactive) Management Plan continue current therapy Karson Ahmedzai HRA, CV Assess/Plan, Angina (inactive) Management Plan continue current therapy Petar Franco MD HRA, CV Assess/Plan, Angina (inactive) Management Plan continue current therapy Karson Ahmedzai HRA, CV Assess/Plan, Angina (inactive) Management Plan continue current therapy Karson Ahmedzai HRA, CV Assess/Plan, Angina (inactive) Management Plan continue current therapy Demetrius Isabel HRA, CV Assess/Plan, Angina (inactive) Management Plan continue current therapy Ilda Blanc HRA, CV Assess/Plan, Angina (inactive) Management Plan continue current therapy Petar Franco MD HRA, CV Assess/Plan, Angina (inactive) Management Plan continue current therapy Karson Olguin HRA, CV Assess/Plan, Angina (inactive) Management Plan continue current therapy Fredi Bernstein HRA, CV Assess/Plan, Angina (inactive) Management Plan continue current therapy Demetrius Nacht HRA, CV Assess/Plan, Angina (inactive) Management Plan continue current therapy Demetrius Nacht HRA, CV Assess/Plan, Angina (inactive) Management Plan continue current therapy Dutch Ivory MD HRA, CV Assess/Plan, Angina (inactive) Management Plan continue current therapy Shawna Seals NP HRA, CV Assess/Plan, Angina (inactive) Management Plan continue current therapy Dutch Ivory MD HRA, CV Assess/Plan, Angina (inactive) Management Plan continue current therapy Dutch Ivory MD HRA, CV Assess/Plan, Angina (inactive) Management Plan continue current therapy Dutch Ivory MD HRA, CV Assess/Plan, Angina (inactive) Management Plan continue current therapy Dutch Ivory MD HRA, CV Assess/Plan, Angina (inactive) Management Plan continue current therapy Dutch Ivory MD MENTAL STATUS Date Observation Value Provider assessment of judgme nt and insight E&M Alert and oriented to time, place and person. Mood and affect are normal. Dutch Ivory MD assessment of judgme nt and insight E&M Alert and oriented to time, place and person. Mood and affect are normal. Dutch Ivory MD assessment of judgme nt and insight E&M Alert and oriented to time, place and person. Mood and affect are normal. Dutch Ivory MD assessment of judgme nt and insight E&M Alert and oriented to time, place and person. Mood and affect are normal. Dutch Ivory MD assessment of judgme nt and insight E&M Alert and oriented to time, place and person. Mood and affect are normal. Dutch Ivory MD assessment of judgme nt and insight E&M Alert and oriented to time, place and person. Mood and affect are normal. Dutch Ivory MD assessment of judgme nt and insight E&M Alert and oriented to time, place and person. Mood and affect are normal. Dutch Ivory MD assessment of judgme nt and insight E&M Alert and oriented to time, place and person. Mood and affect are normal. Dutch Ivory MD assessment of judgme nt and insight E&M Alert and oriented to time, place and person. Mood and affect are normal. Javan Finney MD assessment of judgme nt and insight E&M Alert and oriented to time, place and person. Mood and affect are normal. Kin Dickey RN assessment of judgme nt and insight E&M Alert and oriented to time, place and person. Mood and affect are normal. Kin Dickey RN assessment of judgme nt and insight E&M Alert and oriented to time, place and person. Mood and affect are normal. Kin Dickey RN assessment of judgme nt and insight E&M Alert and oriented to time, place and person. Mood and affect are normal. Dutch Ivory MD FAMILY HISTORY Family Member Condition Mother NH female <65 Father Family History of Ot her Cancer Mother Family History Coron quynh Heart Disease female < 65: INSURANCE PROVIDERS Payer name Policy type / Coverage type [place] [employer] party ID [employer] PPO O [id number] ADVANCE DIRECTIVES Name Date DISCUSSED - NO DECISION MADE TREATMENT PLAN Date Name Performer [id number],S, H er updated medication list for this problem includes: Nexletol 180 Mg Tablet (Bempedoic acid) ..... Take 1 tablet by mouth once a day Petar Franco MD [id number],C, I have no reason to believe that her symptoms are due to PVD because her GEOFF showed good flow in the areas that were angioplastied. S he has a TENS unit which provides some relief Petar Franco MD [id number],C, S table, no angina Petar Franco MD [id number],S, Karson Naik i [id number],S, Karson Naik i [id number],S, Karson Naik i [id number],S, Karsonhyacinth Naik i [id number],S, Karson Naik i [id number],S, Karson Naik i [id number],S, Karson Naik i [id number],S, Petar Franco MD [id number],C, B P today: 122/80 P rior BP: 131/77 (02/05/2023) Prior 10 Yr Risk Heart Disease: N/A (09/27/2010) Labs Reviewed: C reat: 0.87 (12/09/2013) C hol: 227 (01/29/2020) HDL: 37 (01/29/2020) LDL: * mg/dL (calc) (01/29/2020) T (01/29/2020) Petar Franco MD [id number],C,s /p R [employer] pop. She is doing fine. She is c/o of knee pain but she does have OA. She will f/u with Dr. Ivory in 3 months Petar Franco MD [id number],S, Karson Naik i [id number],S, Karson Naik i [id number],S, Karson Naik i [id number],S, Karson Naik i [id number],S, Karson Naik i [id number],S, [facility] [id number],W, Karson medza i [id number],S, [facility] [id number],S, [facility] [id number],S, [facility] [id number],[facility], [facility] [id number],S, [facility] [id number],S, [facility] [id number],S, [facility] i [id number],S, [facility] i [id number],S, [facility] i [id number],S, [facility] [id number],S, [facility] [id number],S, [facility] i [id number],S, [facility] [id number],S, Demetrius Nacht [id number],S, Demetrius Nacht [id number],S, Demetrius Nacht [id number],S, Demetrius Nacht [id number],S, Demetrius Nacht [id number],S, Demetrius Nacht [id number],S, Demetrius Nacht [id number],S, Ilda miller [id number],S, Ilda Newsome obsmeyer [id number],S, Ilda Newsome obsmeyer [id number],S, Ilda Newsome obsmeyer [id number],S, Ilda Jerod obsmeyer [id number],S, Ilda Jerod obsmeyer [id number],S, Petar Franco MD [id number],S,V iabahn 6x50, wire lumen, popliteal. Petar Franco MD [id number],S, Petar Franco MD [id number],S, Karson Noelza i [id number],S, Karson Noelza i [id number],S, Karson Noelza i [id number],S, Karson Noelza i [id number],S, Karson Noelza i Cardiology: O rders: C OMPREHENSIVE METABOLIC PANEL, W/EGFR (14028) L IPID PANEL (7600) H EMOGLOBIN A1c (496) C BC (INCLUDES DIFF/PLT) (6399) P ROBNP, N TERMINAL (32039) Her updated medication list for this problem includes: Jardiance 10 Mg Tablet (Empagliflozin) ..... Take 1 tablet by mouth every day Dutch Ivory MD Cardiology: H er updated medication list for this problem includes: Spironolactone 25 Mg Tablet (Spironolactone) ..... 2 tablet once a day BP today: 136/66 P rior BP: 121/69 (07/28/2024) Prior 10 Yr Risk Heart Disease: N/A (09/27/2010) Labs Reviewed: C reat: 0.87 (12/09/2013) C hol: 227 (01/29/2020) HDL: 37 (01/29/2020) LDL: * mg/dL (calc) (01/29/2020) T (01/29/2020) Orders: C OMPREHENSIVE METABOLIC PANEL, W/EGFR (07642) L IPID PANEL (7600) H EMOGLOBIN A1c (496) C BC (INCLUDES DIFF/PLT) (6399) P ROBNP, N TERMINAL (23112) Dutch Ivory MD Cardiology: H er updated medication list for this problem includes: H er updated medication list for this problem includes: Clopidogrel 75 Mg Tablet (Clopidogrel) ..... Take 1 tablet once a day Ducth Ivory MD Cardiology: H er updated medication list for this problem includes: Clopidogrel 75 Mg Tablet (Clopidogrel) ..... Take 1 tablet once a day Dutch Ivory MD Cardiology: T he following medications were removed from the medication list: Isosorbide Mononitrate 30 Mg Tablet Extended Release 24 Hr (Isosorbide mononitrate) ..... Take 1 tablet by mouth once a day Her updated medication list for this problem includes: Nitroglycerin 0.4 Mg Tablet, Sublingual (Nitroglycerin) ..... Dissolve 1 tablet under the tongue as needed for chest pain every 5 minutes up to 3 times. if no relief call 911. Clopidogrel 75 Mg Tablet (Clopidogrel) ..... Take 1 tablet once a day Orders: C OMPREHENSIVE METABOLIC PANEL, W/EGFR (45590) LIPID PANEL (7600) H EMOGLOBIN A1c (496) C BC (INCLUDES DIFF/PLT) (6399) P ROBNP, N TERMINAL (92723) Dutch Ivory MD Cardiology:This visi t has been a part of the consistent, comprehensive, and ongoing management of the chronic medical condition(s) listed above for the patient. The following medications were removed from the medication list: Isosorbide Mononitrate 30 Mg Tablet Extended Release 24 Hr (Isosorbide mononitrate) ..... Take 1 tablet by mouth once a day Her updated medication list for this problem includes: Nitroglycerin 0.4 Mg Tablet, Sublingual (Nitroglycerin) ..... Dissolve 1 tablet under the tongue as needed for chest pain every 5 minutes up to 3 times. if no relief call 911. Spironolactone 25 Mg Tablet (Spironolactone) ..... 2 tablet once a day Clopidogrel 75 Mg Tablet (Clopidogrel) ..... Take 1 tablet once a day Orders: C OMPREHENSIVE METABOLIC PANEL, W/EGFR (76311) L IPID PANEL (7600) H EMOGLOBIN A1c (496) C BC (INCLUDES DIFF/PLT) (5099) P ROBNP, N TERMINAL (40721) Dutch Ivory MD Cardiology:This visi t has been a part of the consistent, comprehensive, and ongoing management of the chronic medical condition(s) listed above for the patient. Her updated medication list for this problem includes: Nitroglycerin 0.4 Mg Tablet, Sublingual (Nitroglycerin) ..... Dissolve 1 tablet under the tongue as needed for chest pain every 5 minutes up to 3 times. if no relief call 911. Isosorbide Mononitrate 30 Mg Tablet Extended Release 24 Hr (Isosorbide mononitrate) ..... Take 1 tablet by mouth once a day Clopidogrel 75 Mg Tablet (Clopidogrel) ..... Take 1 tablet once a day Dutch Ivory MD Cardiology: B P today: 121/69 P rior BP: 105/60 (02/12/2024) Prior 10 Yr Risk Heart Disease: N/A (09/27/2010) Labs Reviewed: C reat: 0.87 (12/09/2013) C hol: 227 (01/29/2020) HDL: 37 (01/29/2020) LDL: * mg/dL (calc) (01/29/2020) T (01/29/2020) Her updated medication list for this problem includes: Spironolactone 25 Mg Tablet (Spironolactone) ..... 2 tablet once a day Karson Olguin Cardiology Karson Olguin Cardiology: H er updated medication list for this problem includes: Clopidogrel 75 Mg Tablet (Clopidogrel) ..... Take 1 tablet once a day Karson Olguin Cardiology: H er updated medication list for this problem includes: Clopidogrel 75 Mg Tablet (Clopidogrel) ..... Take 1 tablet once a day [facility]: H er updated medication list for this problem includes: Nitroglycerin 0.4 Mg Tablet, Sublingual (Nitroglycerin) ..... Dissolve 1 tablet under the tongue as needed for chest pain every 5 minutes up to 3 times. if no relief call 911. Isosorbide Mononitrate 30 Mg Tablet Extended Release 24 Hr (Isosorbide mononitrate) ..... Take 1 tablet by mouth once a day Spironolactone 25 Mg Tablet (Spironolactone) ..... 2 tablet once a day Clopidogrel 75 Mg Tablet (Clopidogrel) ..... Take 1 tablet once a day [facility] Cardiology: H er updated medication list for this problem includes: Nitroglycerin 0.4 Mg Tablet, Sublingual (Nitroglycerin) ..... Dissolve 1 tablet under the tongue as needed for chest pain every 5 minutes up to 3 times. if no relief call 911. Isosorbide Mononitrate 30 Mg Tablet Extended Release 24 Hr (Isosorbide mononitrate) ..... Take 1 tablet by mouth once a day Clopidogrel 75 Mg Tablet (Clopidogrel) ..... Take 1 tablet once a day [facility]: H er updated medication list for this problem includes: Nitroglycerin 0.4 Mg Tablet, Sublingual (Nitroglycerin) ..... Dissolve 1 tablet under the tongue as needed for chest pain every 5 minutes up to 3 times. if no relief call 911. Isosorbide Mononitrate 30 Mg Tablet Extended Release 24 Hr (Isosorbide mononitrate) ..... Take 1 tablet by mouth once a day Spironolactone 25 Mg Tablet (Spironolactone) ..... 2 tablet once a day Clopidogrel 75 Mg Tablet (Clopidogrel) ..... Take 1 tablet once a day [facility] Cardiology: H er updated medication list for this problem includes: Nexletol 180 Mg Tablet (Bempedoic acid) ..... Take 1 tablet by mouth once a day [facility]: H er updated medication list for this problem includes: Metformin 1,000 Mg Tablet (Metformin) ..... 1 twice a day Amaryl 2 Mg Tablet (Glimepiride) ..... Once a day [facility] Cardiology: B P today: 105/60 P rior BP: 100/61 (09/19/2023) Prior 10 Yr Risk Heart Disease: N/A (09/27/2010) Labs Reviewed: C reat: 0.87 (12/09/2013) C hol: 227 (01/29/2020) HDL: 37 (01/29/2020) LDL: * mg/dL (calc) (01/29/2020) T (01/29/2020) Her updated medication list for this problem includes: Spironolactone 25 Mg Tablet (Spironolactone) ..... 2 tablet once a day [facility] Cardiology: H er updated medication list for this problem includes: Nitroglycerin 0.4 Mg Tablet, Sublingual (Nitroglycerin) ..... Dissolve 1 tablet under the tongue as needed for chest pain every 5 minutes up to 3 times. if no relief call 911. Isosorbide Mononitrate 30 Mg Tablet Extended Release 24 Hr (Isosorbide mononitrate) ..... Take 1 tablet by mouth once a day Clopidogrel 75 Mg Tablet (Clopidogrel) ..... Take 1 tablet once a day [facility] Cardiology: H er updated medication list for this problem includes: Clopidogrel 75 Mg Tablet (Clopidogrel) ..... Take 1 tablet once a day [facility] Cardiology: H er updated medication list for this problem includes: Nexletol 180 Mg Tablet (Bempedoic acid) ..... Take 1 tablet by mouth once a day Petar Franco MD Cardiology: I have no reason to believe that her symptoms are due to PVD because her GEOFF showed good flow in the areas that were angioplastied. S he has a TENS unit which provides some relief Ptear Franco MD Cardiology: S table, no angina Petar Franco MD Cardiology Karson Olguin Cardiology Karson Olguin Cardiology Karson Olguin Cardiology Karson Olguin Cardiology Karson Olguin Cardiology Karson Olguin Cardiology Karson Olguin Cardiology Petar Franco MD Cardiology: B P today: 122/80 P rior BP: 131/77 (02/05/2023) Prior 10 Yr Risk Heart Disease: N/A (09/27/2010) Labs Reviewed: C reat: 0.87 (12/09/2013) C hol: 227 (01/29/2020) HDL: 37 (01/29/2020) LDL: * mg/dL (calc) (01/29/2020) T (01/29/2020) Petar Franco MD Cardiology:s/p R [employer] pop. She is doing fine. She is c/o of knee pain but she does have OA. She will f/u with Dr. Ivory in 3 months Petar Franco MD Telehealth Karson Olguin Telehealth Karson Olguin Telehealth Karson Myersmedserenity Telehealth Karson [facility] Telehealth Karson [facility] Telehealth Karson Ahmedzai Cardiology Karson [facility] Cardiology Karson Ahmedzai Cardiology Karson Ahmedzai Cardiology Karson Myersmedjaylenei Cardiology Karson Ahmedzai Cardiology Karson Myersmedzai Cardiology Karsno Myersmedzai Cardiology Karson Ahmedzai Cardiology Karson Ahmedzai Cardiology Karson Ahmedzai Cardiology Karson Ahmedzai Cardiology Karson Ahmedzai Cardiology Karson Ahmedzai Cardiology Karson Ahmedzai Cardiology Demetrius Nacht Cardiology Demetrius Nacht Cardiology Demetrius Nacht Cardiology Demetrius Nacht Cardiology Demetrius Nacht Cardiology Demetrius Nacht Cardiology Demetrius Nacht Cardiology Ilda Jacobsm eyer Cardiology Ilda Jacobsm eyer Cardiology Ilda Jacobsm eyer Cardiology Ilda Jacobsm eyer Cardiology Ilda Jacobsm eyer Cardiology Ilda Jacobsm eyer Cardiology Petar Franco MD Cardiology:Viabahn 6x50, wire bakari men, popliteal. Petar Franco MD Cardiology Petar Franco MD Cardiology Karson Ahmedzai Cardiology Karson Ahmedzai Cardiology Karson Ahmedzai Cardiology Karson Ahmedzai Cardiology Karson Ahmedzai Cardiology Follow up Dutch orozco MD Cardiology Follow up Dutch orozco MD Cardiology Follow up Dutch orozco MD Cardiology Follow up :Check Geoff's to delinate how much of her symptoms are due to PVD vs neuropathy. Dutch Ivory MD Cardiology follow up Demetrius Escalonat Cardiology follow up Demetrius Escalonat Cardiology follow up Demetrius Nacht Cardiology follow up Demetrius Nacht Cardiology follow up Demetrius Nacht Cardiology follow up Demetrius Nacht Cardiology follow up Demetrius Nacht Cardiology Demetrius Nacht Cardiology Demetrius Nacht Cardiology Demetrius Nacht Cardiology Demetrius Nacht Cardiology Demetrius Nacht Cardiology Demetrius Nacht Cardiology Demetrius Nacht Cardiology Dutch Ivory MD Cardiology Dutch Ivory MD Cardiology Dutch Ivory MD Cardiology Dutch Ivory MD Cardiology Dutch Ivory MD Cardiology Dutch Ivory MD Cardiology Dutch Ivory MD Cardiology Dutch Ivory MD Cardiology Dutch Ivory MD Cardiology Dutch Ivory MD Cardiology Dutch Ivory MD Cardiology follow up - ltr done:BP today: 140/70 P rior BP: 118/70 (04/08/2018) Her updated medication list for this problem includes: Adult Aspirin Ec Low Strength 81 Mg Oral Tablet Delayed Release (Aspirin) ..... Daily Spironolactone 25 Mg Oral Tablet (Spironolactone) ..... 2 tabs daily Shawna Seals NP Cardiology follow up - ltr done:C/o constant coughing with no fever. Will prescribe Tessalon Perles and abx. rhonchi left lower lobe Shawna Seals NP Cardiology follow up - ltr done: Momo Seals NP Cardiology follow up Dutch orozco MD Cardiology follow up Dutch orozco MD Cardiology follow up Dutch orozco MD Cardiology follow up Dutch orozco MD Cardiology follow up Dutch orozco MD Cardiology:Cellulitis has nearly completely healed. Dutch Ivory MD Cardiology:BP today: 131/76 P rior BP: 121/71 (10/01/2017) Prior 10 Yr Risk Heart Disease: N/A (09/27/2010) Labs Reviewed: C reat: 0.87 (12/09/2013) C hol: 138 (10/22/2011) HDL: 27 (10/22/2011) LDL: 77 (10/22/2011) T (10/22/2011) Dutch Ivory MD Cardiology:On Lipitor. Dutch nassar MD Cardiology Dutch Ivory MD Cardiology Dutch Ivory MD Cardiology Follow up :On Livalo 4mg daily. Dutch Ivory MD Cardiology Follow up Dutch orozco MD Cardiology Follow up :Controlled . Dutch Ivory MD Cardiology Follow up :Has some unfixed disease but is doing well. Dutch Ivory MD Cardiology Follow up :Echo today shows EF of 45% which is unchanged from prior echo. Dutch Ivory MD Cardiology Follow up Dutch orozco MD Cardiology Follow up Dutch orozco MD Cardiology Follow up Dutch orozco MD Cardiology Follow up Dutch orozco MD Cardiology Follow up Dutch orozco MD Cardiology Dutch Ivory MD Cardiology Dutch Ivory MD Cardiology Dutch Ivory MD Cardiology Dutch Ivory MD Cardiology Dutch Ivory MD Cardiology Dutch Ivory MD Cardiology Dutch Ivory MD Cardiology Dutch Ivory MD Cardiology Dutch Ivory MD Cardiology Dutch Ivory MD Cardiology Dutch Ivory MD Cardiology Dutch Ivory MD Cardiology Dutch Ivory MD follow up: H er updated medication list for this problem includes: Adult Aspirin Ec Low Strength 81 Mg Tbec (Aspirin) ..... Daily Metformin Hcl 1000 Mg Tabs (Metformin hcl) ..... 1/2 tab twice a day Dutch Ivory MD follow up: H er updated medication list for this problem includes: Simvastatin 20 Mg Tabs (Simvastatin) ..... One tab. daily(replaces vytorin) Dutch Ivory MD follow up: H er updated medication list for this problem includes: Adult Aspirin Ec Low Strength 81 Mg Tbec (Aspirin) ..... Daily Metformin Hcl 1000 Mg Tabs (Metformin hcl) ..... 1/2 tab twice a day Dutch Ivory MD follow up: H er updated medication list for this problem includes: Adult Aspirin Ec Low Strength 81 Mg Tbec (Aspirin) ..... Daily Spironolactone 25 Mg Tabs (Spironolactone) ..... 2 tabs daily Plavix 75 Mg Tabs (Clopidogrel bisulfate) ..... One tab. daily Dutch Ivory MD hsp follow up: H er updated medication list for this problem includes: Vytorin 10-40 Mg Tabs (Ezetimibe-simvastatin) BP today: 122/78 Prior BP: 127/75 (12/01/2013) C HOL: 138 (10/22/2011) LDL: 77 (10/22/2011) HDL: 27 (10/22/2011) T (10/22/2011) C HOL (goal): 200 (09/27/2010) LDL (goal): 70 (09/27/2010) HDL (goal): 40 (09/27/2010) TG (goal): 150 (09/27/2010) Dutch Ivory MD hsp follow up: H er updated medication list for this problem includes: Adult Aspirin Ec Low Strength 81 Mg Tbec (Aspirin) ..... Daily Spironolactone 25 Mg Tabs (Spironolactone) ..... 2 tabs daily Plavix 75 Mg Tabs (Clopidogrel bisulfate) ..... One tab. daily BP today: 122/78 Prior BP: 127/75 (12/01/2013) N uclear Stress Findings: 1. Abnormal myocardial perfusion imaging after vasodilator stress with Regadenoson. 2 . Abnormal left ventricular systolic function with a calculated ejection fraction of (QGS) 49%. 3 . Myocardial scintigraphy demonstrates a mall reversible lateral wall defect consistent with ischemia, moderate sized fixed inferior wall defect consistent with infarct. 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 History of patent left internal mammary artery to the left anterior descending. History of previous stents in the circumflex that are patent. Ejection fraction of 45%. - [facility] (12/15/2013) C ardiac Cath Comments: Successful multivessel, multilesion, complex coronary artery stenting requiring 3 dilatations and tosha wires. 2.5 x 18mm Promus & 2.0 x 12mm Vision stent. [facility] (05/11/2010) C arotid Doppler/Duplex: Normal GC (04/11/2010) C HOL: 138 (10/22/2011) LDL: 77 (10/22/2011) HDL: 27 (10/22/2011) T (10/22/2011) H gb: 14.5 (10/22/2011) HCT: 47.7 (12/09/2013) Platelets: 292 (12/09/2013) R BC: 4.60 (10/22/2011) WBC: 5.9 (10/22/2011) B UN: 8 (12/09/2013) Creat: 0.87 (12/09/2013) Glucose: 138 (12/09/2013) N a+: 140 (12/09/2013) K+: 3.9 (12/09/2013) Cl: 100 (10/22/2011) PT: 10.7 (04/14/2010) INR: 1.0 (12/09/2013) Dutch Ivory MD Follow up: H er updated medication list for this problem includes: Vytorin 10-40 Mg Tabs (Ezetimibe-simvastatin) BP today: 127/75 Prior BP: 114/60 (07/07/2013) C HOL: 138 (10/22/2011) LDL: 77 (10/22/2011) HDL: 27 (10/22/2011) T (10/22/2011) C HOL (goal): 200 (09/27/2010) LDL (goal): 70 (09/27/2010) HDL (goal): 40 (09/27/2010) TG (goal): 150 (09/27/2010) Dutch Ivory MD Follow up Dutch Ivory MD follow up: L abs Reviewed: B UN: 15.3 (10/22/2011) Cr: 1.04 (06/18/2012) H gb: 14.5 (10/22/2011) Hct: 43.5 (06/18/2012) Ca++: 9.3 (10/22/2011) T P: 7.1 (10/22/2011) Alb: 4.1 (10/22/2011) Dutch Ivory MD follow up: T he following medications were removed from the medication list: Furosemide 20 Mg Tabs (Furosemide) ..... 1 tablet by mouth daily Her updated medication list for this problem includes: Adult Aspirin Ec Low Strength 81 Mg Tbec (Aspirin) ..... Daily Spironolactone 25 Mg Tabs (Spironolactone) ..... 2 tabs daily Plavix 75 Mg Tabs (Clopidogrel bisulfate) ..... One tab. daily BP today: 114/60 Prior BP: 138/80 (12/16/2012) N uclear Stress Findings: 1. Regadenoson mediated myocardial perfusion study 2 . Abnormal left ventricular systolic function with a calculated ejection fraction of 31%. 3 . Myocardial scintigraphy demonstrates moderate sized reversible inferolateral wall defect consistent with ischemia (04/11/2010) C ardiac Cath: Incomplete revascularization of the right coronary artery and circumflex artery. Left ventricular dysfunction with ejection fraction 35%. Patient is completely asymptomatic. Will proceed with aggressive risk factor modification and see if she is a candidate for intervention of her circumflex. [facility] (04/18/2010) C ardiac Cath Comments: Successful multivessel, multilesion, complex coronary artery stenting requiring 3 dilatations and tosha wires. 2.5 x 18mm Promus & 2.0 x 12mm Vision stent. [facility] (05/11/2010) C arotid Doppler/Duplex: Normal (04/11/2010) C HOL: 138 (10/22/2011) LDL: 77 (10/22/2011) HDL: 27 (10/22/2011) T (10/22/2011) H gb: 14.5 (10/22/2011) HCT: 43.5 (06/18/2012) Platelets: 316 (06/18/2012) R BC: 4.60 (10/22/2011) WBC: 5.9 (10/22/2011) B UN: 15.3 (10/22/2011) Creat: 1.04 (06/18/2012) Glucose: 100 (10/22/2011) N a+: 141 (06/18/2012) K+: 4.0 (06/18/2012) Cl: 100 (10/22/2011) PT: 10.7 (04/14/2010) INR: 1.0 (04/14/2010) Dutch Ivory MD follow up: T he following medications were removed from the medication list: Lovaza 1 Gm Caps (Rjfua-1-qzin ethyl esters) ..... 2 capsules twice daily dispense as written Antara 43 Mg Caps (Fenofibrate micronized) ..... One tablet daily Her updated medication list for this problem includes: Vytorin 10-40 Mg Tabs (Ezetimibe-simvastatin) Pravachol 40 Mg Tabs (Pravastatin sodium) ..... One tab. daily Fenofibrate 54 Mg Tabs (Fenofibrate) ..... One tablet daily BP today: 116/66 Prior BP: 118/74 (12/11/2011) C HOL: 138 (10/22/2011) LDL: 77 (10/22/2011) HDL: 27 (10/22/2011) T (10/22/2011) C HOL (goal): 200 (09/27/2010) LDL (goal): 70 (09/27/2010) HDL (goal): 40 (09/27/2010) TG (goal): 150 (09/27/2010) Dutch Ivory MD follow up: T he following medications were removed from the medication list: Ascriptin 325 Mg Tabs (Aspirin buf(ycxoi-ipawk-pklgh)) ..... 1 tab by mouth daily Her updated medication list for this problem includes: Aspirin 325 Mg Tabs (Aspirin) ..... One tab. daily Furosemide 20 Mg Tabs (Furosemide) ..... 1 tablet by mouth daily Lisinopril 5 Mg Tabs (Lisinopril) ..... One tab. daily Effient 10 Mg Tabs (Prasugrel hcl) ..... Once daily Spironolactone 25 Mg Tabs (Spironolactone) ..... 1/2 tab daily Orders: E KG (CPT-30955) BP today: 116/66 Prior BP: 118/74 (12/11/2011) N uclear Stress Findings: 1. Regadenoson mediated myocardial perfusion study 2 . Abnormal left ventricular systolic function with a calculated ejection fraction of 31%. 3 . Myocardial scintigraphy demonstrates moderate sized reversible inferolateral wall defect consistent with ischemia (04/11/2010) C ardiac Cath: Incomplete revascularization of the right coronary artery and circumflex artery. Left ventricular dysfunction with ejection fraction 35%. Patient is completely asymptomatic. Will proceed with aggressive risk factor modification and see if she is a candidate for intervention of her circumflex. [facility] (04/18/2010) C ardiac Cath Comments: Successful multivessel, multilesion, complex coronary artery stenting requiring 3 dilatations and tosha wires. 2.5 x 18mm Promus & 2.0 x 12mm Vision stent. [facility] (05/11/2010) C arotid Doppler/Duplex: Normal (04/11/2010) C HOL: 138 (10/22/2011) LDL: 77 (10/22/2011) HDL: 27 (10/22/2011) T (10/22/2011) H gb: 14.5 (10/22/2011) HCT: 43.3 (10/22/2011) Platelets: 368 THOUSAND/UL (04/12/2009) R BC: 4.60 (10/22/2011) WBC: 5.9 (10/22/2011) B UN: 15.3 (10/22/2011) Creat: 1.28 (10/22/2011) Glucose: 100 (10/22/2011) N a+: 137 (10/22/2011) K+: 3.6 (10/22/2011) Cl: 100 (10/22/2011) PT: 10.7 (04/14/2010) INR: 1.0 (04/14/2010) Dutch Ivory MD 6 month follow-up Dutch Wilson 6 month follow-up: H er updated medication list for this problem includes: Zetia 10 Mg Tabs (Ezetimibe) ..... One tab. daily Lovaza 1 Gm Caps (Lxddz-4-iwkb ethyl esters) ..... 2 capsules twice daily dispense as written Trilipix 135 Mg Cpdr (Choline fenofibrate) ..... Take one daily Pravachol 40 Mg Tabs (Pravastatin sodium) ..... One tab. daily BP today: 118/74 Prior BP: 107/63 (05/22/2011) C HOL: 138 (10/22/2011) LDL: 77 (10/22/2011) HDL: 27 (10/22/2011) T (10/22/2011) C HOL (goal): 200 (09/27/2010) LDL (goal): 70 (09/27/2010) HDL (goal): 40 (09/27/2010) TG (goal): 150 (09/27/2010) Dutch Ivory MD 6 month follow-up: L abs Reviewed: B UN: 15.3 (10/22/2011) Cr: 1.28 (10/22/2011) H gb: 14.5 (10/22/2011) Hct: 43.3 (10/22/2011) Ca++: 9.3 (10/22/2011) T P: 7.1 (10/22/2011) Alb: 4.1 (10/22/2011) Dutch Ivory MD 6 month follow-up: H er updated medication list for this problem includes: Aspirin 325 Mg Tabs (Aspirin) ..... One tab. daily Furosemide 20 Mg Tabs (Furosemide) ..... 1 tablet by mouth daily Lisinopril 5 Mg Tabs (Lisinopril) ..... One tab. daily Effient 10 Mg Tabs (Prasugrel hcl) ..... Once daily Ascriptin 325 Mg Tabs (Aspirin buf(tvofx-pqlhm-whrfa)) ..... 1 tab by mouth daily Spironolactone 25 Mg Tabs (Spironolactone) ..... 1/2 tab daily BP today: 118/74 Prior BP: 107/63 (05/22/2011) N uclear Stress Findings: 1. Regadenoson mediated myocardial perfusion study 2 . Abnormal left ventricular systolic function with a calculated ejection fraction of 31%. 3 . Myocardial scintigraphy demonstrates moderate sized reversible inferolateral wall defect consistent with ischemia (04/11/2010) C ardiac Cath: Incomplete revascularization of the right coronary artery and circumflex artery. Left ventricular dysfunction with ejection fraction 35%. Patient is completely asymptomatic. Will proceed with aggressive risk factor modification and see if she is a candidate for intervention of her circumflex. [facility] (04/18/2010) C ardiac Cath Comments: Successful multivessel, multilesion, complex coronary artery stenting requiring 3 dilatations and tosha wires. 2.5 x 18mm Promus & 2.0 x 12mm Vision stent. [facility] (05/11/2010) C arotid Doppler/Duplex: Normal (04/11/2010) C HOL: 138 (10/22/2011) LDL: 77 (10/22/2011) HDL: 27 (10/22/2011) T (10/22/2011) H gb: 14.5 (10/22/2011) HCT: 43.3 (10/22/2011) Platelets: 368 THOUSAND/UL (04/12/2009) R BC: 4.60 (10/22/2011) WBC: 5.9 (10/22/2011) B UN: 15.3 (10/22/2011) Creat: 1.28 (10/22/2011) Glucose: 100 (10/22/2011) N a+: 137 (10/22/2011) K+: 3.6 (10/22/2011) Cl: 100 (10/22/2011) PT: 10.7 (04/14/2010) INR: 1.0 (04/14/2010) Dutch Ivory MD follow up: H er updated medication list for this problem includes: Zetia 10 Mg Tabs (Ezetimibe) ..... One tab. daily Lovaza 1 Gm Caps (Fktde-2-fnfh ethyl esters) ..... 2 capsules twice daily dispense as written Trilipix 135 Mg Cpdr (Choline fenofibrate) ..... Take one daily Pravachol 40 Mg Tabs (Pravastatin sodium) ..... One tab. daily BP today: 107/63 Prior BP: 119/66 (11/07/2010) C HOL: 156 (02/03/2011) LDL: 82 MG/DL (CALC) (02/03/2011) HDL: 35 (02/03/2011) T (02/03/2011) C HOL (goal): 200 (09/27/2010) LDL (goal): 70 (09/27/2010) HDL (goal): 40 (09/27/2010) TG (goal): 150 (09/27/2010) Dutch Ivory MD follow up: O rders: E KG (CPT-27496) Dutch Ivory MD follow up: H er updated medication list for this problem includes: Aspirin 325 Mg Tabs (Aspirin) ..... One tab. daily Furosemide 20 Mg Tabs (Furosemide) ..... 1 tablet by mouth daily Lisinopril 5 Mg Tabs (Lisinopril) ..... One tab. daily Effient 10 Mg Tabs (Prasugrel hcl) ..... Once daily Ascriptin 325 Mg Tabs (Aspirin buf(ncnrb-gdmzy-szwxo)) ..... 1 tab by mouth daily Spironolactone 25 Mg Tabs (Spironolactone) ..... 1/2 tab daily BP today: 107/63 Prior BP: 119/66 (11/07/2010) N uclear Stress Findings: 1. Regadenoson mediated myocardial perfusion study 2 . Abnormal left ventricular systolic function with a calculated ejection fraction of 31%. 3 . Myocardial scintigraphy demonstrates moderate sized reversible inferolateral wall defect consistent with ischemia (04/11/2010) C ardiac Cath: Incomplete revascularization of the right coronary artery and circumflex artery. Left ventricular dysfunction with ejection fraction 35%. Patient is completely asymptomatic. Will proceed with aggressive risk factor modification and see if she is a candidate for intervention of her circumflex. [facility] (04/18/2010) C ardiac Cath Comments: Successful multivessel, multilesion, complex coronary artery stenting requiring 3 dilatations and tosha wires. 2.5 x 18mm Promus & 2.0 x 12mm Vision stent. [facility] (05/11/2010) C arotid Doppler/Duplex: Normal GC (04/11/2010) C HOL: 156 (02/03/2011) LDL: 82 MG/DL (CALC) (02/03/2011) HDL: 35 (02/03/2011) T (02/03/2011) H gb: 14.7 (04/14/2010) HCT: 44.2 (04/14/2010) Platelets: 368 THOUSAND/UL (04/12/2009) R BC: 4.81 (04/14/2010) WBC: 5.5 (04/14/2010) B UN: 18.8 (04/14/2010) Creat: 1.30 (04/14/2010) Glucose: 166 (04/14/2010) N a+: 140 (04/14/2010) K+: 3.9 (04/14/2010) Cl: 101 (04/14/2010) PT: 10.7 (04/14/2010) INR: 1.0 (04/14/2010) Dutch Ivory MD follow up: H er updated medication list for this problem includes: Aspirin 325 Mg Tabs (Aspirin) ..... One tab. daily Furosemide 20 Mg Tabs (Furosemide) ..... 1 tablet by mouth daily Lisinopril 5 Mg Tabs (Lisinopril) ..... One tab. daily Effient 10 Mg Tabs (Prasugrel hcl) ..... Once daily Ascriptin 325 Mg Tabs (Aspirin buf(huedu-truoc-sqhit)) ..... 1 tab by mouth daily B P today: 119/66 Prior BP: 120/75 (06/22/2010) N uclear Stress Findings: 1. Regadenoson mediated myocardial perfusion study 2 . Abnormal left ventricular systolic function with a calculated ejection fraction of 31%. 3 . Myocardial scintigraphy demonstrates moderate sized reversible inferolateral wall defect consistent with ischemia (04/11/2010) C ardiac Cath: Incomplete revascularization of the right coronary artery and circumflex artery. Left ventricular dysfunction with ejection fraction 35%. Patient is completely asymptomatic. Will proceed with aggressive risk factor modification and see if she is a candidate for intervention of her circumflex. [facility] (04/18/2010) C ardiac Cath Comments: Successful multivessel, multilesion, complex coronary artery stenting requiring 3 dilatations and tosha wires. 2.5 x 18mm Promus & 2.0 x 12mm Vision stent. [facility] (05/11/2010) C arotid Doppler/Duplex: Normal GC (04/11/2010) C HOL: 148 (09/27/2010) LDL: 77 (09/27/2010) HDL: 25 (09/27/2010) T (09/27/2010) H gb: 14.7 (04/14/2010) HCT: 44.2 (04/14/2010) Platelets: 368 THOUSAND/UL (04/12/2009) R BC: 4.81 (04/14/2010) WBC: 5.5 (04/14/2010) B UN: 18.8 (04/14/2010) Creat: 1.30 (04/14/2010) Glucose: 166 (04/14/2010) N a+: 140 (04/14/2010) K+: 3.9 (04/14/2010) Cl: 101 (04/14/2010) PT: 10.7 (04/14/2010) INR: 1.0 (04/14/2010) Dutch Ivory MD hosp f/u: H er updated medication list for this problem includes: Glipizide 10 Mg Tabs (Glipizide) ..... Take one tab twice daily Aspirin 325 Mg Tabs (Aspirin) ..... One tab. daily Lisinopril 5 Mg Tabs (Lisinopril) ..... One tab. daily Javan Finney MD hosp f/u: H er updated medication list for this problem includes: Zetia 10 Mg Tabs (Ezetimibe) ..... One tab. daily Lovaza 1 Gm Caps (Khxla-0-vtxq ethyl esters) ..... 2 capsules twice daily dispense as written Trilipix 135 Mg Cpdr (Choline fenofibrate) ..... Take one daily Crestor 10 Mg Tabs (Rosuvastatin calcium) ..... Every other day Javan Finney MD hosp f/u: O rders: C omplete Echo (CPT-33825) M UGA (LVEF) (CPT-99230) Javan Finney MD hosp f/u: H er updated medication list for this problem includes: Zetia 10 Mg Tabs (Ezetimibe) ..... One tab. daily Aspirin 325 Mg Tabs (Aspirin) ..... One tab. daily Lovaza 1 Gm Caps (Xcfty-1-vnfz ethyl esters) ..... 2 capsules twice daily dispense as written Trilipix 135 Mg Cpdr (Choline fenofibrate) ..... Take one daily Lisinopril 5 Mg Tabs (Lisinopril) ..... One tab. daily Effient 10 Mg Tabs (Prasugrel hcl) ..... Once daily Crestor 10 Mg Tabs (Rosuvastatin calcium) ..... Every other day Orders: C omplete Echo (CPT-51888) M UGA (LVEF) (CPT-08295) Javan Finney MD hosp f/u: H er updated medication list for this problem includes: Zetia 10 Mg Tabs (Ezetimibe) ..... One tab. daily Aspirin 325 Mg Tabs (Aspirin) ..... One tab. daily Lovaza 1 Gm Caps (Sriqg-9-sohi ethyl esters) ..... 2 capsules twice daily dispense as written Trilipix 135 Mg Cpdr (Choline fenofibrate) ..... Take one daily Lisinopril 5 Mg Tabs (Lisinopril) ..... One tab. daily Effient 10 Mg Tabs (Prasugrel hcl) ..... Once daily Crestor 10 Mg Tabs (Rosuvastatin calcium) ..... Every other day Orders: M UGA (LVEF) (CPT-70204) Javan Finney MD hosp f/u: O rders: C omplete Echo (CPT-51512) M UGA (LVEF) (CPT-12666) Javan Finney MD hosp f/u: H er updated medication list for this problem includes: Zetia 10 Mg Tabs (Ezetimibe) ..... One tab. daily Lovaza 1 Gm Caps (Zcwjr-2-tath ethyl esters) ..... 2 capsules twice daily dispense as written Trilipix 135 Mg Cpdr (Choline fenofibrate) ..... Take one daily Crestor 10 Mg Tabs (Rosuvastatin calcium) ..... Every other day Orders: C omplete Echo (CPT-89259) M UGA (LVEF) (CPT-72335) Javan Finney MD hosp f/u: H er updated medication list for this problem includes: Aspirin 325 Mg Tabs (Aspirin) ..... One tab. daily Effient 10 Mg Tabs (Prasugrel hcl) ..... Once daily Orders: C omplete Echo (CPT-72776) M UGA (LVEF) (CPT-74842) Javan Finney MD hosp f/u: H er updated medication list for this problem includes: Aspirin 325 Mg Tabs (Aspirin) ..... One tab. daily Furosemide 20 Mg Tabs (Furosemide) ..... 1 tablet by mouth daily Lisinopril 5 Mg Tabs (Lisinopril) ..... One tab. daily Orders: C omplete Echo (CPT-98882) M UGA (LVEF) (CPT-62935) Javan Finney MD hosp f/u Javan Finney MD hosp f/u Javan Finney MD hosp f/u Javan Finney MD 6 month follow-up: H er updated medication list for this problem includes: Zetia 10 Mg Tabs (Ezetimibe) ..... One tab. daily Gemfibrozil 600 Mg Tabs (Gemfibrozil) ..... One tab twice daily Enalapril Maleate 10 Mg Tabs (Enalapril maleate) ..... One qd Aspirin 325 Mg Tabs (Aspirin) ..... One tab. daily BP today: 133/63 Prior BP: 119/72 (10/12/2008) N uclear Stress Findings: EF 47% on gated study (please correlate EF with echo) P artially reversible lateral wall defect (10/02/2006) C arotid Doppler/Duplex: normal: (08/14/2004) Orders: E KG (CPT-94462) Dutch Ivory MD 6 month follow-up: H er updated medication list for this problem includes: Metformin Hcl 500 Mg Tabs (Metformin hcl) ..... 2 tablets by mouth twice daily Glipizide 5 Mg Tabs (Glipizide) ..... 2 tablets by mouth daily Enalapril Maleate 10 Mg Tabs (Enalapril maleate) ..... One qd Aspirin 325 Mg Tabs (Aspirin) ..... One tab. daily BP today: 133/63 Prior BP: 119/72 (10/12/2008) Dutch Ivory MD 6 month follow-up Dutch Wilson 6 month follow-up Dutch Wilson 6 month follow-up Dutch Wilson 6 month follow-up: H er updated medication list for this problem includes: Aspirin 325 Mg Tabs (Aspirin) ..... One tab. daily Carotid Duplex Scan: n ormal: (08/14/2004) Echocardiogram: T he left ventricular chamber size is normal. Normal left ventricular function. LV EF is estimated at 50%Abnormal (paradoxical) septal motion consistent with postoperative status. The right ventricle is normal in size. M ild left atrial enlargement.Normal right atrium. T here is mitral annular calcification. There is mild mitral valve regurgitation. T he aortic valve appears structurally normal. There is trace aortic valve regurgitation. T he tricuspid valve is structurally normal. N ormal pulmonic valve. N ormal pericardium with no significant pericardial effusion. N ormal aortic root. (10/12/2008) Dutch Ivory MD 6 month follow-up: H er updated medication list for this problem includes: Enalapril Maleate 10 Mg Tabs (Enalapril maleate) ..... One qd Aspirin 325 Mg Tabs (Aspirin) ..... One tab. daily Furosemide 20 Mg Tabs (Furosemide) ..... 1 tablet by mouth daily BP today: 133/63 P rior BP: 119/72 (10/12/2008) Dutch Ivory MD 6 month f/u: H er updated medication list for this problem includes: Zetia 10 Mg Tabs (Ezetimibe) ..... One tab. daily Gemfibrozil 600 Mg Tabs (Gemfibrozil) ..... One tab twice daily Enalapril Maleate 10 Mg Tabs (Enalapril maleate) ..... One qd Aspirin 325 Mg Tabs (Aspirin) ..... One tab. daily BP today: 119/72 Prior BP: / () N uclear Stress Findings: EF 47% on gated study (please correlate EF with echo) P artially reversible lateral wall defect (10/02/2006) C arotid Doppler/Duplex: normal: (08/14/2004) Dutch Ivory MD 6 month f/u: H er updated medication list for this problem includes: Metformin Hcl 500 Mg Tabs (Metformin hcl) ..... 2 tablets by mouth twice daily Glipizide 5 Mg Tabs (Glipizide) ..... 2 tablets by mouth daily Enalapril Maleate 10 Mg Tabs (Enalapril maleate) ..... One qd Aspirin 325 Mg Tabs (Aspirin) ..... One tab. daily BP today: 119/72 Prior BP: / () Dutch Ivory MD 6 month f/u Dutch Ivory MD 6 month f/u Dutch Ivory MD 6 month f/u Dutch Ivory MD 6 month f/u: H er updated medication list for this problem includes: Enalapril Maleate 10 Mg Tabs (Enalapril maleate) ..... One qd Aspirin 325 Mg Tabs (Aspirin) ..... One tab. daily Furosemide 40 Mg Tabs (Furosemide) ..... 1 qd BP today: 119/72 Dutch Ivory MD 6 month f/u: H er updated medication list for this problem includes: Aspirin 325 Mg Tabs (Aspirin) ..... One tab. daily Carotid Duplex Scan: n ormal: (08/14/2004) Echocardiogram: L ower limits of normal LV systolic function EF 50% T echnically difficult study Frequent PVCs D iastolic dysfunction M ild LAE T hickened MV M AC S clerosed AV T race MR T race TR (11/06/2007) Dutch Ivory MD Dutch Ivory MD : H er updated medication list for this problem includes: Aspirin 325 Mg Tabs (Aspirin) ..... One tab. daily Metformin Hcl 500 Mg Tabs (Metformin hcl) ..... 1 bid Glipizide 5 Mg Tabs (Glipizide) ..... 1 bid Enalapril Maleate 10 Mg Tabs (Enalapril maleate) ..... One qd Dutch Ivory MD Dutch Ivory MD : H er updated medication list for this problem includes: Aspirin 325 Mg Tabs (Aspirin) ..... One tab. daily Furosemide 40 Mg Tabs (Furosemide) ..... 1 qd Enalapril Maleate 10 Mg Tabs (Enalapril maleate) ..... One qd Dutch Ivory MD : H er updated medication list for this problem includes: Gemfibrozil 600 Mg Tabs (Gemfibrozil) ..... One tab twice daily Aspirin 325 Mg Tabs (Aspirin) ..... One tab. daily Zetia 10 Mg Tabs (Ezetimibe) ..... One tab. daily Dutch Ivory MD : H er updated medication list for this problem includes: Gemfibrozil 600 Mg Tabs (Gemfibrozil) ..... One tab twice daily Aspirin 325 Mg Tabs (Aspirin) ..... One tab. daily Enalapril Maleate 10 Mg Tabs (Enalapril maleate) ..... One qd Zetia 10 Mg Tabs (Ezetimibe) ..... One tab. daily N uclear Stress Findings: EF 47% on gated study (please correlate EF with echo) P artially reversible lateral wall defect (10/02/2006) E cho: Lower limits of normal LV systolic function EF 50% T echnically difficult study Frequent PVCs D iastolic dysfunction M ild LAE T hickened MV M AC S clerosed AV T race MR T race TR (11/06/2007) C arotid Doppler/Duplex: normal: (08/14/2004) Orders: C omplete Echo (CPT-24191) Dutch Ivory MD Date Name PROBNP, N TERMINAL CBC (INCLUDES DIFF/P LT) HEMOGLOBIN A1c LIPID PANEL COMPREHENSIVE METABO LIC PANEL, W/EGFR Complete Echo LIPID PANEL COMPREHENSIVE METABO LIC PANEL, W/EGFR Arterial Duplex Bi-L ower EX PROBNP, N TERMINAL LIPID PANEL Arterial Duplex Uppe r Extremity Bilateral PROTHROMBIN TIME WIT H INR LIPID PANEL CBC (INCLUDES DIFF/P LT) BASIC METABOLIC PANE L W/EGFR Complete Echo Arterial Duplex Bi-L ower EX Complete Echo Complete Echo Arterial Duplex Bi-L ower EX PROTHROMBIN TIME WIT H INR LIPID PANEL CBC (INCLUDES DIFF/P LT) BASIC METABOLIC PANE L W/EGFR AIF Diagnostic - GC Arterial Duplex Bi-L ower EX Arterial Duplex Bi-L ower EX COMPREHENSIVE METABO LIC PANEL, W/EGFR LIPID PANEL LIPID PANEL LIPID PANEL Complete Echo Complete Echo Complete Echo Arterial Duplex Bi-L ower EX LIPID PANEL MUGA (LVEF) Complete Echo Carotid Duplex Bilat eral Stress Test - Adenos ine Complete Echo HEPATIC FUNCTION TSAI EL LIPID PANEL VAP(TM) CHOLESTEROL TEST HEPATIC FUNCTION TSAI EL Lipoprotein Profile by NMR CBC (INCLUDES DIFF/P LT) BASIC METABOLIC PANE L W/EGFR LIPID PANEL Complete Echo HISTORY OF PROCEDURES Procedure Date Procedure Name Provider Procedure Notes S tatus Complex e/m visit add on Dutch Ivory MD completed Complex e/m visit add on Dutch Ivory MD completed EKG Dutch Ivory MD completed EKG Dutch Ivory MD completed EKG Dutch Ivory MD completed EKG Dutch Ivory MD completed SNOMED-CT: [id number] Current Medications Documented Dutch Ivory MD completed SNOMED-CT: [id number] Physical Exam, Performed: Pulse Exam of Foot Dutch [place] MD completed EKG Dutch Ivory MD completed SNOMED-CT: [id number] Current Medications Documented Dutch Ivory MD completed SNOMED-CT: [id number] Current Medications Documented Jabari Carmona MD completed SNOMED-CT: 00214419 Physical Exam, Performed: Pulse Exam of Foot Dutch Ivory MD completed EKG Dutch Ivory MD completed SNOMED-CT: [id number] Current Medications Documented Dutch [place] MD completed SNOMED-CT: 43254041 Physical Exam, Performed: Pulse Exam of Foot Dutch Iv[place] MD completed SNOMED-CT: [id number] Current Medications Documented Dutch [place] MD completed SNOMED-CT: 38299846 Physical Exam, Performed: Pulse Exam of Foot Dutch Ivory MD completed EKG Dutch Ivory MD completed SNOMED-CT: 211704276619553 Current Medications Documented Dutch Ivory MD completed EKG Dutch Ivory MD completed EKG Dutch Ivory MD completed EKG Dutch Ivory MD completed EKG Dutch Ivory MD completed EKG Dutch Ivory MD completed EKG Dutch Iovry MD completed
== END 2025-03-17 16:39 | disposition home or self-care (01) ==
PROVIDERS: PCP Internal Medicine; Visit Provider Nurse Practitioner Family
DX: R19.7 Diarrhea, unspecified (principal); R15.9 Full incontinence of feces
CPT/HCPCS: 74018

== ENCOUNTER 2025-05-05 11:42 | Outpatient (NON) | payer MEDICARE, SELFPAY ==
--- OUTSIDE RECORDS SUMMARY | 2025-05-05 13:55 | XMS_ITS | Clinical Summary ---
Author Organization [facility] [employer] Address [address] [place] [address] Care Team Providers Care Drone Software Development Engineer Name Role Phone Erick Rushing MD Primary Care Provider [phone] Source Comments [facility],non-owned Affiliates and Associated Physician Practices is amultiple site organization consisting of ambulatory clinics and hospital sitesin [place], [place] and [place]. This disclosure is being madepursuant to the Care Everywhere program and may not contain all information available regarding this patient. Last updated 18.[employer] [facility] Allergies Active Allergy Reactions Criticality Noted Date [...] times daily. 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 Gender Identity Not on file Sexual Orientation Not on file Last Filed Vital Signs Vital Sign Reading Time Taken Comments Blood Pressure 141/76 02/15/2014 1:25 PM CDT Pulse 65 02/15/2014 1:25 PM CDT Temperature 36.7 C (98.1 F) 12/24/2013 3:07 PM SLAG WHEELER Respiratory Rate 18 12/24/2013 3:07 PM SLAG WHEELER Oxygen Saturation 99% 02/15/2014 1:25 PM CDT Inhaled Oxygen Concentration - - Weight 56.5 kg (124 lb 8 oz) 02/15/2014 1:25 PM CDT Height 149.9 cm (4' 11) 02/15/2014 1:25 PM CDT Body Mass Index [...] 11:03 PM 12/24/2013 5:00 PM Care Teams Drone Software Development Engineer Relationship Specialty Start Date End Date Erick Rushing MD [address] [place] [id number] PCP - General Internal Medicine 12/22/13
--- OUTSIDE RECORDS SUMMARY | 2025-05-05 13:56 | XMS_ITS | Continuity of Care Document ---
Author Organization [facility] Address [address] [place] [address] Phone Care Team Providers Care Certified Medical Biller Name Role Phone David Chavez Unavailable Unavailable Procedures Procedure Date Office/outpatient Visit, Est Office/outpatient Visit, Est Office/outpatient Visit, Est Office/outpatient Visit, Est Office/outpatient Visit, Est Eye Exam & Treatment Refraction Office/outpatient Visit, Est Post-op Follow-up Visit Laser Surgery Of Eye Office/outpatient Visit, Est Visual Field Examination(s) Office/outpatient Visit, Est Office/outpatient Visit, Est Eye Exam Established Pt Eye Exam Established Pt Advance Directives Directive Yes / No Effective Date File Name No Information Encounters Encounter Description Practice Location Reason(s) For Visit Diagnoses Date Provider Providers Copied on Encounter Office/outpat ient Visit, [facility], [address], [place], [place], [id number], [place] tel:[phone] [facility] No Information 201 0 Kathy Hernandez. [address] , [address], [place], [address], [place]. tel:[phone] Office/outpat ient Visit, [facility], [address], [place], [place], [id number], [place] tel:[phone] SEC [facility] No Information b-0 1-201 0 Kathy Hernandez. [facility] , [address], [place], [address], [place]. tel:[phone] Office/outpat ient Visit, [facility], [address] [place] [address] [address], [place], [place], [id number], [place] tel:[phone] SEC [facility] No Information 4-200 9 Kathy Hernandez. [address] [place], [place] [address], [place], [facility], [place]. tel:[phone] Office/outpat ient Visit, [facility], [address], [place], [place], [address], [place] tel:[phone] [facility] No Information 2 7-200 9 Kathy Hernandez. [address] [place], [place] [address]ate Center , [address], [place], [facility], [place]. tel:[phone] Referring Provider: David Acharya, [address] [place], [place] [address]ate [address], [place], [facility]. tel:[phone] Office/outpat ient Visit, [facility], [address] [place] [address] [address], [place], [place], [address], [place] tel:[phone] SEC [facility] No Information 2 4-200 8 Kathy Hernandez. [address] [place], [place] [address], [place], [address], [place]. tel:[phone] [facility], [address], [place], [place], [address], [place] tel:[phone] SEC [facility] No Information 2 3-200 8 Kathy Hernandez. [facility] [address], [place], [facility], . tel:[phone] Office/outpat ient Visit, [facility], [address] [place] [address] [address], [place], [place], [address], [place] tel:[phone] SEC [facility] No Information 1200 8 Kathy Edmadiha. [address] [place], [place] [address]ate Center , [address], [place], [facility], . tel:[phone] [facility], [address] [place] [address] [address], [place], [place], [address], [place] tel:[phone] SEC [facility] [place] No Information 1200 8 Kathy Hernandez. [address] [place] [address] Center , [address], [place], [facility], . tel:[phone] [facility], [address] [place] [address] [address], [place], [place], [address], [place] tel:[phone] SEC [facility] No Information 200 8 Kathy Edmadiha. [address] [place], [place] [address]ate Center , [address], [place], [facility], . tel:[phone] Referring Provider: David Acharya, [address] [place], [place] [address]ate [address], [place], [facility]. tel:[phone] Office/outpat ient Visit, [facility], [address] [place] [address] [address], [place], [place], [address], [place] tel:[phone] SEC [facility] [place] No Information 8200 8 Kathy Edmadiha. [address] [place], [place] [address]ate Center , [address], [place], [facility], . tel:[phone] [facility], [address] [place] [address] [address], [place], [place], [address], [place] tel:[phone] SEC [facility] No Information 1-200 8 Kathy Hernandez. [address] [place] [address] Center , [address], [place], [facility], [place]. tel:[phone] Referring Provider: David Acharya, Curt [facility] [address], [place], [facility]. tel:[phone] [facility], [facility], [address] [place] [address] [address], [place], [place], [address], [place] tel:[phone] SEC [facility] [place] No Information 0-200 7 Kathy Hernandez. [facility] [address], [place], [facility], [place]. tel:[phone] Referring Provider: David Acharya, [facility] [address], [place], [facility]. tel:[phone] [facility]outpat ient [facility], [facility], [address] [place] [address] [address], [place], [place], [address], [place] tel:[phone] SEC [facility] [place] No Information March-0 7-200 7 Kathy Hernandez. [address] [place] [address] Center , [address], [place], [facility], [place]. tel:[phone] [facility], [address] [place] [address] [address], [place], [place], [address], [place] tel:[phone] SEC [facility] No Information 0-200 7 Kathy Hernandez. [address] [place] [address], [place], [address], [place]. tel:[phone] [facility], [address], [place], [place], [address], [place] tel:[phone] SEC [facility] No Information 5-200 7 Kathy Hernandez. [facility] [address] Fern[address], [place], [address], [place]. tel:[phone] Family History Family Member Type Diagnosis Age At Onset No Information Payers Payer name Insurance type Covered democrat ID Chaim carlisle(s) Irma Mdcr Adv CI [id number] Social History Type Description Quantity Date Captured Comments Sex Female Smoking Status No Information Chief Complaint And Reason For Visit No Information Reason For Referral Reason For Referral No Information History Of Present Illness Encounter Date Complaint History Of Prese nt Illness No Information Functional Status Date Functional Assessmen t No Information Instructions Date Instruction Additional Infor mation No Information Assessments Type Assessment Date No Information Patient Care Teams Name Effective Dates (start - stop) Status Members No Information
--- OUTSIDE RECORDS SUMMARY | 2025-05-05 13:56 | XMS_ITS | Data Portability ---
Author Organization [facility] [email or web address] [facility], Main Office Address [address] [place] [address] Care Team Providers Care Garage Door Service Technician Name Role Phone DONOVAN CARDENAS Primary Care Provider DONOVAN CARDENAS Referring Provider Assessment Encounter Date Assessment Date Assessment LastModified by Organization Details LastModified Time 09/02/2024 09/02/2024 This note is dictated and transcribed by [employer]. Clinical Research Technician variances may occur. Despite proofreading, typographical errors may occur. Occasional wrong-word or 'hcast-j-zgzv' substitutions may have occurred due to the inherent limitations of voice recording. Read the chart carefully and recognize, using context, where substitutions have occurred. Not available 09/10/2024 09:49:21 09/09/2024 09/09/2024 This note is dictated and transcribed by [employer]. Clinical Research Technician variances may occur. Despite proofreading, typographical errors may occur. Occasional wrong-word or 'hggkc-n-oikq' substitutions may have occurred due to the inherent limitations of voice recording. Read the chart carefully and recognize, using context, where substitutions have occurred. Not available 09/10/2024 09:44:39 09/16/2024 09/16/2024 This note is dictated and transcribed by [employer]. Clinical Research Technician variances may occur. Despite proofreading, typographical errors may occur. Occasional wrong-word or 'ksaxr-i-dspu' substitutions may have occurred due to the inherent limitations of voice recording. Read the chart carefully and recognize, using context, where substitutions have occurred. Not available 09/26/2024 15:12:45 Plan of Treatment Reminders Order Date Submit Date Provider Last Modified By Organization Details Last Modified Time Details Appointments None recorded. Lab magnesium, serum or plasma 2024 025 [email or web address] [facility], [address] [place], [address], 5 17:16:14 vitamin B12, serum 2024 025 [facility], [address] [place], [address], 5 17:16:14 lipid panel, serum 2024 025 [email or web address] [facility], [address] [place], [address], 5 17:16:13 CMP, serum or plasma 2024 025 [email or web address] [facility], [address] [place], [address], 5 17:16:13 TSH, serum or plasma 2024 025 [email or web address] [facility], [address] [place], [address], 5 17:16:14 T4, free, serum 2024 025 [facility], [address] [place], [address], 5 17:16:14 CBC w/ auto diff 2024 025 [email or web address] [facility], [address] [place], [address], 5 17:16:14 Referral None recorded. Procedures None recorded. Surgeries None recorded. Imaging None recorded. Medication Orders cephalexin 500 mg capsule [email or web address] [place] [address] Pharm[facility], [address] [place], [address], 14:19:08 Patient TargetsNo targets recorded. Patient Instructions Encounter Date Encounter Id Patient Instructions Last Modified By Organization Details Last Modified Time 08/31/2024 [id number] Follow-up an ry artery disease, hypertension, hyperlipidemia, [...] with voice recognition software. Occasional wrong-word or debce-e-vcqr substitutions may have occurred due to the inherent limitations of voice recognition software. Read the chart carefully and recognize, using context, where substitutions have occurred. [email or web address] Not available 08/31/2024 17:00:38 01/04/2025 [id number] Coronary artery disease, essential hypertension, hyperlipidemia, GERD [...] with voice recognition software. Occasional wrong-word or ubyig-i-fufk substitutions may have occurred due to the inherent limitations of voice recognition software. Read the chart carefully and recognize, using context, where substitutions may have occurred. Created: Donovan Cardenas M.D. 01.04.2025 04:04 [email or web address] Not available 01/04/2025 17:05:24 Reason for Referral None Reported. Results Created Date Observation Date Name Description Value Unit Range Abnormal Flag Note LastModifiedBy Organization Detail LastModifiedTime 01/22/20 25 01/22/2025 CBC/C OMPLE TE BLD COUNT W/DIF F white blood cells 9.6 x10'3 /uL 4.2-10 .8 Not Available [facility] (Lab) [address] [place], [address], 01/22/2025 16:46:39 01/22/20 25 01/22/2025 CBC/C OMPLE TE BLD COUNT W/DIF F red blood cells 4.00 x10'6 /uL 3.80-5 .20 Not Available [facility] (Lab) [address] [place], [address], 01/22/2025 16:46:39 01/22/20 25 01/22/2025 CBC/C OMPLE TE BLD COUNT W/DIF F hemoglobin 13.1 g/dL 12.0-1 5.6 Not Available [facility] (Lab) [address] [place], [address], 01/22/2025 16:46:39 01/22/20 25 01/22/2025 CBC/C OMPLE TE BLD COUNT W/DIF F hematocrit 40.0 % 35.7-4 5.7 Not Available [facility] (Lab) [address] [place], [address], 01/22/2025 16:46:39 01/22/20 25 01/22/2025 CBC/C OMPLE TE BLD COUNT W/DIF F mean red cell volume 100.0 fL 82.0-9 9.0 high Not Available [facility] (Lab) [address] [place], [address], 01/22/2025 16:46:39 01/22/20 25 01/22/2025 CBC/C OMPLE TE BLD COUNT W/DIF F mean red cell hemoglobin 32.8 pg 27.0-3 3.0 Not Available [facility] (Lab) [address] [place], [address], 01/22/2025 16:46:39 01/22/20 25 01/22/2025 CBC/C OMPLE TE BLD COUNT W/DIF F mean RBC HGB concentratio n 32.8 g/dL 31.0-3 6.0 Not Available [facility] (Lab) [address] [place], [address], 01/22/2025 16:46:39 01/22/20 25 01/22/2025 CBC/C OMPLE TE BLD COUNT W/DIF F red cell distribution width 14.0 % 11.8-1 5.5 Not Available [facility] (Lab) [address] [facility] [place], [address], 01/22/2025 16:46:39 01/22/20 25 01/22/2025 CBC/C OMPLE TE BLD COUNT W/DIF F platelets 291 x10'3 /uL 150-40 0 Not Available [facility] (Lab) [address] [place], [address], 01/22/2025 16:46:39 01/22/20 25 01/22/2025 CBC/C OMPLE TE BLD COUNT W/DIF F mean platelet volume 9.2 fL 9.0-12 .4 Not Available [facility] (Lab) [address] [place], [address], 01/22/2025 16:46:39 01/22/20 25 01/22/2025 CBC/C OMPLE TE BLD COUNT W/DIF F neutrophils 63.7 % 39.0-7 2.0 Not Available [facility] (Lab) [address] [place], [address], 01/22/2025 16:46:39 01/22/20 25 01/22/2025 CBC/C OMPLE TE BLD COUNT W/DIF F lymphocytes 27.4 % 16.0-4 7.0 Not Available [facility] (Lab) [address] [place], [address], 01/22/2025 16:46:39 01/22/20 25 01/22/2025 CBC/C OMPLE TE BLD COUNT W/DIF F monocytes 6.7 % 5.0-12 .0 Not Available [facility] (Lab) [address] [place], [address], 01/22/2025 16:46:39 01/22/20 25 01/22/2025 CBC/C OMPLE TE BLD COUNT W/DIF F eosinophils 0.9 % 1.0-7. 0 low Not Available [facility] (Lab) [address] [place], [address], 01/22/2025 16:46:39 01/22/20 25 01/22/2025 CBC/C OMPLE TE BLD COUNT W/DIF F basophils 0.6 % 0.0-2. 0 Not Available [facility] (Lab) [address] [place], [address], 01/22/2025 16:46:39 01/22/20 25 01/22/2025 CBC/C OMPLE TE BLD COUNT W/DIF F immature granulocytes 0.7 % 0.00-0 .50 high Not Available [facility] (Lab) [address] [place], [address], 01/22/2025 16:46:39 01/22/20 25 01/22/2025 CBC/C OMPLE TE BLD COUNT W/DIF F neutrophils, absolute count 6.09 x10'3 /uL 1.5-8. 0 Not Available [facility] (Lab) [address] [place], [address], 01/22/2025 16:46:39 01/22/20 25 01/22/2025 CBC/C OMPLE TE BLD COUNT W/DIF F lymphocytes, absolute count 2.62 x10'3 /uL 1.07-3 .43 Not Available [facility] (Lab) [address] [place], [address], 01/22/2025 16:46:39 01/22/20 25 01/22/2025 CBC/C OMPLE TE BLD COUNT W/DIF F monocytes, absolute count 0.64 x10'3 /uL 0.29-0 .99 Not Available [facility] (Lab) [address] [place], [address], 01/22/2025 16:46:39 01/22/20 25 01/22/2025 CBC/C OMPLE TE BLD COUNT W/DIF F eosinophils, absolute count 0.09 x10'3 /uL 0.02-0 .53 Not Available [facility] (Lab) [address] [place], [address], 01/22/2025 16:46:39 01/22/20 25 01/22/2025 CBC/C OMPLE TE BLD COUNT W/DIF F basophils, absolute count 0.06 x10'3 /uL 0.01-0 .08 Not Available [facility] (Lab) [address] [place], [address], 01/22/2025 16:46:39 01/22/20 25 01/22/2025 CBC/C OMPLE TE BLD COUNT W/DIF F immature granulocytes ,absolute 0.07 x10'3 /uL 0.00-0 .05 high Not Available [facility] (Lab) [address] [place], [address], 01/22/2025 16:46:39 01/22/20 25 01/22/2025 CBC/C OMPLE TE BLD COUNT W/DIF F nucleated red blood cells 0.0 % -0 Not Available [facility] (Lab) [address] [place], [address], 01/22/2025 16:46:39 01/22/20 25 01/22/2025 CBC/C OMPLE TE BLD COUNT W/DIF F NRBC# 0.00 x10'3 /uL Not Available [facility] (Lab) [address] [place], [address], 01/22/2025 16:46:39 01/22/20 25 01/22/2025 LIPID PANEL cholesterol 129 mg/dL 140-19 9 low NIH HUBER NSUS RECOM MENDA TION FOR BELIA STERO L: ADULT CHILD LOW RISK: <200 <170 BORDE RLINE : <200- 239 ----- HIGH RISK: >240 >200 Not Available [facility] (Lab) [address] [place], [address], 01/22/2025 17:05:40 01/22/20 25 01/22/2025 LIPID PANEL triglyceride s 194 mg/dL 0-150 high NIH HUBER NSUS REPOR T RECOM MENDA TION FOR TRIGL YCERI ESTRELLITA: ADULT CHILD LOW RISK: <150 ----- BODER LINE: 150-1 99 ----- HIGH RISK: >200 ----- Not Available [facility] (Lab) [address] [place], [address], 01/22/2025 17:05:40 01/22/20 25 01/22/2025 LIPID PANEL HDL cholesterol 35 mg/dL 40- low Not Available [facility] (Lab) [address] [place], [address], 01/22/2025 17:05:40 01/22/20 25 01/22/2025 LIPID PANEL [...] WILL NOT BE REPOR CURTIS. Not Available [facility] (Lab) [address] [place], [address], 01/22/2025 17:05:40 01/22/20 25 01/22/2025 COMPR EHENS APARNA METAB OLIC PANEL sodium 136 mmol/ L 137-14 5 low Not Available [facility] (Lab) [address] [place], [address], 01/22/2025 17:05:46 01/22/20 25 01/22/2025 COMPR EHENS APARNA METAB OLIC PANEL potassium 4.2 mmol/ L 3.5-5. 1 Not Available [facility] (Lab) [address] [place], [address], 01/22/2025 17:05:46 01/22/20 25 01/22/2025 COMPR EHENS APARNA METAB OLIC PANEL chloride 104 mmol/ L 98-107 Not Available [facility] (Lab) [address] [place], [address], 01/22/2025 17:05:46 01/22/20 25 01/22/2025 COMPR EHENS APARNA METAB OLIC PANEL carbon dioxide 28 mmol/ L 22-30 Not Available [facility] (Lab) [address] [place], [address], 01/22/2025 17:05:46 01/22/20 25 01/22/2025 COMPR EHENS APARNA METAB OLIC PANEL anion gap 8.2 mmol/ L 14-22 low Not Available [facility] (Lab) [address] [place], [address], 01/22/2025 17:05:46 01/22/20 25 01/22/2025 COMPR EHENS APARNA METAB OLIC PANEL glucose 81 mg/dL 70-99 Not Available [facility] (Lab) [address] [place], [address], 01/22/2025 17:05:46 01/22/20 25 01/22/2025 COMPR EHENS APARNA METAB OLIC PANEL BUN 20 mg/dL 8-19 high Not Available [facility] (Lab) [address] [place], [address], 01/22/2025 17:05:46 01/22/20 25 01/22/2025 COMPR EHENS APARNA METAB OLIC PANEL creatinine 0.75 mg/dL 0.66-1 .25 Not Available [facility] (Lab) [address] [place], [address], 01/22/2025 17:05:46 01/22/20 25 01/22/2025 COMPR EHENS APARNA METAB OLIC PANEL GFR >60 Refer ence Range : [place] ge GFR Healt hy Adult : >60 [...] or ethni c subgr oups, such as Hisor nics. Outsi de the valid ated chadwick [...] s/kdo qi/gf r_cal culat or Not Available [facility] (Lab) [address] [place], [address], 01/22/2025 17:05:46 01/22/20 25 01/22/2025 COMPR EHENS APARNA METAB OLIC PANEL alkaline phosphatase 88 U/L 38-126 Not Available [facility] (Lab) [address] [place], [address], 01/22/2025 17:05:46 01/22/20 25 01/22/2025 COMPR EHENS APARNA METAB OLIC PANEL alanine aminotransfe rase 16 U/L 0-35 Not Available [facility] (Lab) [address] [place], [address], 01/22/2025 17:05:46 01/22/20 25 01/22/2025 COMPR EHENS APARNA METAB OLIC PANEL aspartate aminotransfe rase 26 U/L 15-37 Not Available [facility] (Lab) [address] [place], [address], 01/22/2025 17:05:46 01/22/20 25 01/22/2025 COMPR EHENS APARNA METAB OLIC PANEL bilirubin, total 1.20 mg/dL 0.20-1 .30 Not Available [facility] (Lab) [address] [place], [address], 01/22/2025 17:05:46 01/22/20 25 01/22/2025 COMPR EHENS APARNA METAB OLIC PANEL calcium 9.3 mg/dL 8.4-10 .2 Not Available [facility] (Lab) [address] [place], [address], 01/22/2025 17:05:46 01/22/20 25 01/22/2025 COMPR EHENS APARNA METAB OLIC PANEL total protein 5.9 g/dL 6.3-8. 2 low Not Available [facility] (Lab) [address] [place], [address], 01/22/2025 17:05:46 01/22/20 25 01/22/2025 COMPR EHENS APARNA METAB OLIC PANEL albumin 3.3 g/dL 3.0-4. 4 Not Available [facility] (Lab) [address] [place], [address], 01/22/2025 17:05:46 01/22/20 25 01/22/2025 COMPR EHENS APARNA METAB OLIC PANEL globulin 2.6 g/dL 2.6-4. 2 Not Available [facility] (Lab) [address] [place], [address], 01/22/2025 17:05:46 01/22/20 25 01/22/2025 COMPR EHENS APARNA METAB OLIC PANEL A/G ratio 1.3 ratio 1.0-2. 0 Not Available [facility] (Lab) [address] [place], [address], 01/22/2025 17:05:46 01/22/20 25 01/22/2025 MAGNE SIUM magnesium 1.4 mg/dL 1.6-2. 3 low Not Available [facility] (Lab) [address] [place], [address], 01/22/2025 17:05:48 01/22/20 25 01/22/2025 T4 FREE free T4 0.89 NG/dL 0.78-2 .19 Not Available [facility] (Lab) [address] [place], [address], 01/22/2025 17:41:36 01/22/20 25 01/22/2025 TSH thyroid-stim ulating hormone 0.700 uIU/m L 0.465- 4.680 Not Available [facility] (Lab) [address] [place], [address], 01/22/2025 17:56:33 01/22/20 25 01/22/2025 VITAM IN B12 (SHIVAM LASHON ) vb12 513 pg/mL 239-93 1 Not Available [facility] (Lab) [address] [place], [address], 01/22/2025 18:18:47 03/17/20 25 03/17/2025 XR, abdom en No observ ation record ed. [facility] [address], [place], [address], 03/19/2025 09:52:11 Result Notes None recorded. Problems Name Problem SNOMED Code Status Onset Date Resolution Date Notes Provider Name and Address Organization Details Recorded Time Renewal of prescript ion Active 2021 Not Available [facility] 3 00:01:24 Hyperchol esterolem ia 91458295 Active Not Available [employer] 3 00:01:24 Nausea and vomiting 57008493 Active 2021 Not Available [facility] 3 00:01:24 Senile osteoporo sis 48429956 Active 2022 Not Available [facility] 3 00:01:24 Gastroeso phageal reflux disease 598738614 Active Not Available [facility] 3 00:01:24 Type 2 diabetes mellitus without complicat ion 963681819 Active 2021 Not Available [facility] 3 00:01:24 Restless legs 61905560 Active Not Available [facility] 3 00:01:24 Osteoarth ritis 248525925 Active Not Available [facility] 3 00:01:24 Periphera l vascular disease 244927696 Active Not Available [facility] 3 00:01:24 Nausea 403605446 Active 2021 Not Available [facility] 3 00:01:24 Type 2 diabetes mellitus 34456238 Active Not Available [facility] 3 00:01:24 Achalasia of esophagus 98355135 Active Not Available [facility] 3 00:01:24 Pain of right knee joint 29776249010 4100 Active 2021 Not Available [facility] 3 00:01:24 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 72080873 Active 2018 Not Available [facility] 3 00:01:24 Coronary arteriosc lerosis 16887132 Active Not Available [facility] 3 00:01:24 Essential hypertens ion 58212929 Active 2022 Not Available [facility] 3 00:01:24 Osteoporo sis 32035369 Active 2022 Not Available [facility] 3 00:01:24 Diabetes mellitus 48595704 Completed Not Available [facility] 3 14:49:48 Diabetes mellitus without complicat ion 725490303 Active 2022 Not Available [facility] 3 00:01:24 Heart disease 55746584 Active 2023 Karolyn watters, [place] [employer] [facility] [employer] [facility] 4 16:23:06 Sleep disorder 59446955 Active 2023 Karolyn [place] [employer] [facility] [employer] [facility] 4 16:23:20 Pain in both feet 32888284162 116561 Active 2023 Demetrius Negron DPM [address], [place], [address] , [employer] [facility] [employer] [facility] 4 17:07:49 Bunion 014797836 Active 2023 Demetrius Negron DPM [address], [address], [place], [address] , [employer] [facility] 4 17:07:56 Periphera l arterial occlusive disease 394433354 Active 2023 Demetrius Negron DPM [address], [address], [place], [address] , [employer] [facility] [employer] [facility] 4 17:08:05 Ulcer of toe 578467036 Active 2023 Demetrius Negron DPM [address], [address], [place], [address] , [employer] [facility] [employer] [facility] 4 17:13:41 Dystrophi a unguium 71770449 Active 2023 Demetrius Negron DPM [address], [place], [address] , [employer] [facility] [employer] [facility] 4 17:15:25 Bunion 996449784 Active 2023 Demetrius Negron DPM [address], [place], [address] , [facility] 4 17:13:50 Celluliti s of left lower limb 49484318442 704400 Active 2023 Donovan Cardenas MD [address], [place], [address] , [facility] 4 16:52:06 Skin eschar 093693839 Active 2023 Demetrius Negron DPM [address], [place], [address] , [facility] 4 10:07:36 Open wound of left lower leg 36723748463 214118 Active 2023 Demetrius Negron DPM [address], [place], [address] , 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 4 10:08:29 Periphera l venous insuffici ency 86385349 Active 2023 Demetrius Negron DPM [address], [place], [address] , [facility] 4 10:08:38 Celluliti s of lower limb 537637427 Active 2023 IRINEO Enriquez, [facility] 4 16:39:07 Celluliti s of upper limb 234683753 Active 2023 Donovan Cardenas MD [address], [place], [address] , [facility] 4 17:00:08 Ulcer of toe 896009549 Active 2023 Demetrius Negron DPM [address], [place], [address] , [facility] [employer] [facility] 4 09:45:08 Pressure injury of toe of left foot stage II 88436690501 4107 Active 2023 Demetrius Negron DPM [address], [address], [place], [address] , [facility] [employer] [facility] 4 09:45:56 Cough 41059501 Active 2023 Donovan Cardenas MD [address], [address], [place], [address] , [facility] [employer] [facility] 4 14:22:04 Gastroeso phageal reflux disease without esophagit is 532225940 Active 2023 IRINEO Enriquez, [facility] [employer] [facility] 4 14:20:48 Hypomagne semia 963703234 Active 2024 IRINEO Enriquez, [facility] [email or web address] [facility] 5 15:18:18 Notes:Some problems listed i n Document: #[id number] could not be added to this patient's chart. Please review this document and add these problems to the patient's chart manually as needed. Problem Notes None recorded. Procedures Surgical History Date Name Laterality Status Provider Name and Address Organization Details Recorded Time 4 Wound Care-Podiatry completed Demetrius Negron DPM [address], [address], [place], [address], [facility] [employer] [facility] 09/26/2024 15:12:36 4 Wound Care-Podiatry completed Demetrius Negron DPM [address], [place], [address], [facility] [email or web address] [facility] 09/10/2024 09:44:24 4 Wound Care-Podiatry completed Yolette Gonzalez RN [facility] [email or web address] [facility] 09/02/2024 16:50:42 4 Wound Care-Podiatry completed Demetrius Negron DPM [address], [place], [address], [facility] [employer] [facility] [employer] [facility] 08/26/2024 16:56:19 4 Wound Care-Podiatry completed Yolette Gonzalez RN [facility] [employer] [facility] 08/19/2024 17:11:57 4 Wound Care-Podiatry completed Demetrius Negron DPM [address], [place], [address], [facility] [employer] [facility] [employer] [facility] 07/23/2024 10:07:26 4 Nail Debridement completed Demetrius Negron DPM [address], [address], [place], [address], [employer] [facility] [employer] 06/29/2024 09:54:44 4 Medicare Wellness CPT Code, subsequent completed Leanne Serrano RN [place] [employer] [facility] [employer] 03/02/2024 16:37:19 4 Nail Debridement completed Demetrius Negron DPM [address], [place], [address], [employer] [facility] [employer] 12/19/2023 17:07:34 Imaging Results None recorded. Procedure Notes None recorded. Medical Equipment None Reported. Allergies Allergen ID Allergen Name Allergen Category Reaction Reaction Severity Criticality Documentation Date Start Date Code Code System Note Provider Name and Address Organization Details Recorded Time 39020 Product containin g 3-hydroxy -3-methyl glutaryl- coenzyme A reductase inhibitor (product) medicatio n myalgias (muscle pain) moderate Not available 01/23/2023 70421 009 SNOMED Not Available [employer] 3 14:53:55 Medications Name Sig Start Date [...] Available Not Available alendronate 70 mg tablet TAKE 1 TABLET BY MOUTH ONCE A WEEK 2024 active Not Available Not Available Not Avai lable lovastatin 40 mg tablet Take 1 tablet [...] oxide 400 mg (241.3 mg magnesium) tablet Take 1 tablet by mouth once daily 2024 active Not Available Not Available Not Avai lable metoclopram josue 5 mg tablet TAKE 1 TABLET BY MOUTH 4 TIMES DAILY active Not Available Not Available No t Available Kenalog 10 mg/mL suspension for injection In office injection administe red by the provider 06/[address] [facility]: 0003- 0494- 20 Not Available Not [...] completed Not Available Not Available Not Available [employer] Ultra2 Meter kit use to test bllod [...] Available Vitals Date Recorded Body height Body mass index (BMI) Body weight Heart rate Oxygen saturation Oxygen saturation in Arterial blood by Pulse oximetry Systolic blood pressure Diastolic blood pressure Provider Name and Address Organization Details Last Updated DateTime 5 147.32 cm 24.9 kg/m2 45908.4 9 g 72 /min 96 % 96 % 128 mm[Hg] 68 mm[Hg] Gila Alvarado CMA [place] - [facility] 5 16:52:57 Date Recorded Body height Body weight Heart rate Body temperature Oxygen saturation Oxygen saturation in Arterial blood by Pulse oximetry Systolic blood pressure Diastolic blood pressure Provider Name and Address Organization Details Last Updated DateTime 4 147.32 cm 10517.6 8 g 92 /min 97 [degF] 95 % 95 % 118 mm[Hg] 60 mm[Hg] MASON Trimble [facility] 4 16:46:08 Date Recorded Body height Body temperature Heart rate Oxygen saturation Oxygen saturation in Arterial blood by Pulse oximetry Respiratory rate Systolic blood pressure Diastolic blood pressure Provider Name and Address Organization Details Last Updated DateTime 4 147.32 cm 98.3 [degF] 94 /min 94 % 94 % 18 /min 116 mm[Hg] 66 mm[Hg] Yolette Gonzalez RN [facility] [employer] [facility] 4 16:21:00 Date Recorded Body height Heart rate Body temperature Oxygen saturation Oxygen saturation in Arterial blood by Pulse oximetry Systolic blood pressure Diastolic blood pressure Provider Name and Address Organization Details Last Updated DateTime 4 147.32 cm 87 /min 98.6 [degF] 96 % 96 % 111 mm[Hg] 60 mm[Hg] Rom August RN [facility] [employer] [facility] 4 17:06:47 Date Recorded Body height Body temperature Respiratory rate Heart rate Oxygen saturation Oxygen saturation in Arterial blood by Pulse oximetry Systolic blood pressure Diastolic blood pressure Provider Name and Address Organization Details Last Updated DateTime 4 147.32 cm 97.5 [degF] 18 /min 88 /min 96 % 96 % 105 mm[Hg] 60 mm[Hg] Yolette Gonzalez RN [facility] [employer] [facility] 4 16:43:45 Social History Question Answer Notes LastModified by Organizat ion Details LastModified Time Tobacco Smoking Status Never Smoker Not Available [employer] 01/23/2023 14:45:37 Do You Have An Advance Directive? Yes MIGRATION.[id number] 5760 Information not available 01/23/2023 Are You Blind Or Do You Have Difficulty Seeing? No Glasses MIGRATION.433344 0871 Information not available 01/23/2023 In The 14 Days Before Symptom Onset, Have You Had Close Contact With A Laboratory-confir med COVID-19 While That Case Was Ill? No MIGRATION.541929 5595 Information not available 01/23/2023 In The 14 Days Before Symptom Onset, Have You Had Close Contact With A Person Who Is Under Investigation For COVID-19 While That Person Was Ill? No MIGRATION.350429 2134 Information not available 01/23/2023 Are You Deaf Or Do You Have Serious Difficulty Hearing? No MIGRATION.028311 4061 Information not available 01/23/2023 What Type Of Diet Are You Following? REGULAR MIGRATION.913625 9588 Information not available 01/23/2023 Have There Been Any Changes To Your Family Or Social Situation? No MIGRATION.784576 9340 Information not available 01/23/2023 What Is The Fluoride Status Of Your Home? Unknown MIGRATION.677685 3062 Information not available 01/23/2023 Are There Any Guns Present In Your Home? No MIGRATION.895665 5122 Information not available 01/23/2023 Do You Use Insect Repellent Routinely? No MIGRATION.206240 3563 Information not available 01/23/2023 [address] Do You Live? [place] MIGRATION.649117 9058 Information not available 01/23/2023 Are You Able To Care For Yourself? Yes [email or web address] Information not available 03/02/2024 Are You Blind Or Do Yo Have Difficulty Seeing? No [email or web address] Information not available 03/02/2024 Are You Deaf Or Do You Have Serious Difficulty Hearing? No [email or web address] Information not available 03/02/2024 Live Alone Of With Others? With Others [email or web address] Information not available 03/02/2024 Do You Have A Medical Power Of Towing Pilot? Yes [email or web address] Information not available 03/02/2024 What Was The Date Of Your Most Recent Tobacco Screening? 03/02/2024 [email or web address] Information not available 03/02/2024 Do You Have Any Pets? Yes [email or web address] Information not available 03/02/2024 Do You Use Your Seat Belt Or Car Seat Routinely? Yes [email or web address] Information not available 03/02/2024 Do You Have Smoke And Carbon Monoxide Detectors In Your Home? Yes MIGRATION.531207 4619 Information not available 01/23/2023 Are You Passively Exposed To Smoke? No MIGRATION.678526 4978 Information not available 01/23/2023 Are There Any Smokers In Your House? No MIGRATION.264929 7396 Information not available 01/23/2023 Do You Use Sunscreen Routinely? No MIGRATION.966146 9350 Information not available 01/23/2023 Have You Recently Traveled Abroad? No MIGRATION.065929 3391 Information not available 01/23/2023 Do You Have Difficulty Walking Or Climbing Stairs? Yes Uses Cane Or Walker MIGRATION.052776 0395 Information not available 01/23/2023 Do You Have Any Dietary Restrictions? No MIGRATION.131617 7175 Information not available 01/23/2023 Sex: Unknown Functional Status Question Answer Note LastModified by Organizat ion Details LastModified Time What is your level of alcohol consumption? None MIGRATION.009107 8658 Information not available 01/23/2023 Do you have transportation difficulties? No MIGRATION.122656 6778 Information not available 01/23/2023 Are you able to walk? YESASSIST MIGRATION.848711 2350 Information not available 01/23/2023 Do you have difficulty doing errands alone? Yes doesn't drive MIGRATION.076672 9675 Information not available 01/23/2023 Are you able to care for yourself? Yes MIGRATION.792874 6485 Information not available 01/23/2023 What is your occupation? retired MIGRATION.290454 2591 Information not available 01/23/2023 Do you have difficulty dressing or bathing? No MIGRATION.060224 0124 Information not available 01/23/2023 What is your exercise level? Occasional MIGRATION.642139 6309 Information not available 01/23/2023 Mental Status Question Answer Note LastModified by Organizat ion Details LastModified Time Do you have difficulty concentrating, remembering or making decisions? No MIGRATION.608504549 6 Information not available 01/23/2023 Family History Relationship Description Onset Age of this Age Resolved Age Notes LastModified by Organization Details LastModified Time Mother Heart disease MIGRATION.538 [id number] Not available 01/23/2023 14:46:02 Sister Family history of malignant neoplasm MIGRATION.248 [id number] Not available 01/23/2023 14:46:02 Father Family history of malignant neoplasm MIGRATION.755 [id number] Not available 01/23/2023 14:46:02 Brother Family history of malignant neoplasm MIGRATION.712 [id number] Not available 01/23/2023 14:46:02 Maternal Grandmother Family history of malignant neoplasm MIGRATION.115 [id number] Not available 01/23/2023 14:46:02 Unspecified Relation Diabetes mellitus [email or web address] Not available 2023 16:23:35 Notes:Mother 75 from [place] D Father 64 [place] Colon Seven sisters 4 living three one from CAD, Leukemia and MVA Seven brothers four living and in good health. Two in MVA and one unknown causes. Medical History Condition Response BLINDNESS N NERVE DISEASE N RHEUMATIC FEVER N BLADDER PROBLEMS N KIDNEY STONES N CARPAL TUNNEL SYNDROME N MRSA N OTHER # 1 N POLIO N LUNG DISEASE/DISORDER N HISTORY OF DRUG ABUSE N RADIATION / CHEMOTHERAPY N COPD N Other # 2 N ANKLE PAIN N SPORTS INJURY N BLOOD DISEASES N SURGERY N EAR OR HEARING PROBLEMS N MUMPS N SCHIZOPHRENIA N SHINGLES N DEPRESSION (INCLUDING POST ) N SHOULDER PAIN N BOWEL PROBLEMS N STROKE/TIA N KNEE PAIN N ULCERS N BENIGN PROSTATIC HYPERPLASIA N MEASLES N MYOCARDIAL INFARCTION N OBESITY N GERD/NAUSEA N ANEURYSM N URINARY/BLADDER/KIDNEY PROBLEMS N INPATIENT PSYCH CARE N CORONARY ARTERY DISEASE (CAD) Y ADDICTION CONCERNS N ENDOMETRIOSIS N Impotence N [...] HAVE YOU BEEN HOSPITALIZED OR SEEN IN [facility] IN THE PAST YEAR ? N ATHEROSCLEROSIS [...] PF 4 completed Donovan Cardenas MD [address] [facility], [address], [place], [address], [employer] 08/31/2024 16:59:38 Pneumococcal conjugate PCV20, polysaccharide [id number] conjugate, adjuvant, PF 4 completed Donovan Cardenas MD [address] [facility], [address], [place], [address], [employer] 08/31/2024 16:59:38 SARS-COV-2 (COVID-19) vaccine, UNSPECIFIED 1 completed Not Available [facility] 01/02/2024 00:33:23 SARS-COV-2 (COVID-19) vaccine, UNSPECIFIED 1 completed Not Available [facility] 01/02/2024 00:33:23 SARS-COV-2 (COVID-19) vaccine, UNSPECIFIED 1 completed Not Available [facility] 01/02/2024 00:33:23 Influenza, high-dose, quadrivalent, PF 1 completed Not Available [facility] 01/02/2024 00:33:23 Influenza, high-dose, quadrivalent, PF 3 completed Not Available [facility] 01/02/2024 00:33:23 Influenza, high-dose, quadrivalent, PF 0 completed Not Available [facility] 01/02/2024 00:33:23 Influenza, high-dose, trivalent, PF 9 completed Not Available [facility] 01/02/2024 00:33:23 pneumococcal polysaccharide PPV23 5 completed Not Available [facility] 01/02/2024 00:33:23 Pneumococcal conjugate PCV 13 5 completed Not Available [facility] 01/02/2024 00:33:23 Past Encounters Encounter ID Performer Location Encounter Start Date Encounter Closed Date Diagnosis/Indication Diagnosis SNOMED-CT Code Diagnosis ICD10 Code Diagnosis Note [id number] Donovan Cardenas MD [facility] [address] [address] 02/06/2021 00:00:00 02/06/2021 18:02:21 [id number] Donovan Carednas MD [facility] [address] [address] 06/12/2021 00:00:00 06/12/2021 17:47:33 [id number] Donovan Cardenas MD [facility] [address] [address] 10/09/2021 00:00:00 10/09/2021 17:30:22 [id number] Torsten Esteban MD [address] [address] 12/21/2021 00:00:00 12/23/2021 15:51:42 [id number] Donovan Cardenas MD [facility] [address] [address] 02/08/2022 00:00:00 02/08/2022 14:30:32 [id number] Torsten Esteban MD [address] [address] 02/08/2022 00:00:00 02/08/2022 15:29:16 [id number] Donovan Cardenas MD [facility] [address] [address] 06/04/2022 00:00:00 06/04/2022 16:46:21 [id number] Donovan Cardenas MD [facility] Internal Med [facility] [address] [address] 12/03/2022 00:00:00 12/03/2022 16:42:41 [id number] Donovan Cardenas MD [facility] Internal Med [facility] [address] [address] 04/01/2023 16:04:10 04/01/2023 16:40:42 Coronary arteriosclerosis 26560585 I25.10 Essential hypertension 81911499 I10 Type 2 lucinda betes mellitus 49220255 E11.9 Gastroesop hageal reflux disease 917675359 K21.9 Osteoporosis 23778210 M8 1.0 Hypercholesterolemia 136 65497 E78.00 Peripheral vascular disease 892263075 I73.9 [id number] Donovan Cardenas MD [facility] Internal Med [facility] [address] [address] 09/02/2023 16:04:37 09/02/2023 17:26:10 Essential hypertension 17766232 I10 Hypercholesterolemia 136 41814 E78.00 Type 2 lucinda betes mellitus 99754121 E11.9 [id number] Demetrius Negron DPM [facility] [place] [address] [facility] [address] [place] [address] 12/19/2023 16:18:54 12/25/2023 09:26:10 Pain in both feet 3703806318 2316364 M79.671 M79.672 Diabetes m ellitus without complication 573080943 E11.9 Educated on diabetesRe commend daily foot exams to prevent wounds infection Bunion 266489822 M21.61 9 Offloading crucial to prevent wounds infectionR ecommend diabetic extra-dept h wide shoe gear Peripheral arterial occlusive disease 484643099 I73.9 Obtain previous testing results from vascular office [id number] Donovan Cardenas MD [facility] Internal Med [facility] [address] [address] 03/02/2024 16:19:28 03/02/2024 16:59:47 Adult health examination 741357890 Z00.00 Screening for disorder 515271134 Z13.9 Coronary arteriosclerosis 09210249 I25.10 Essential hypertension 36672353 I10 Hypercholesterolemia 136 07020 E78.00 Type 2 lucinda betes mellitus without complication 885124647 E11.9 Peripheral arterial occlusive disease 331742008 I73.9 [id number] Demetrius Negron DPM [facility] [place] [address] [place] [address] 06/25/2024 16:38:31 06/29/2024 11:13:11 Ulcer of toe 629166590 L97.509 left 5th toe 0.3x0.3x0. 3cmwound care dailyMonit or for signs of infection present seek medical attention immediatel yFollow-up 1 week Peripheral vascular disease 612395209 I73.9 has vasc art us this coming week- obtain Dystrophia unguium 14949 009 L60.3 nails debrided without incident Type 2 lucinda betes mellitus 50800161 E11.9 continue diabetic control per PCP recommenda tions [id number] Demetrius Negron DPM [facility] [place] [address] [address] 07/09/2024 16:46:01 07/10/2024 09:44:53 Ulcer of toe 450345150 L97.509 left 5th toe 0.3x0.3x0. 3cmxray neg for erosive changes to the 5th toewound care dailyMonit or for signs of infection present seek medical attention immediatel yFollow-up 1 week Peripheral vascular disease 808089075 I73.9 has vasc art us aug 11threcomm end moving that up she will call Sign Vas Bunion 322452060 M21.61 9 Offloading crucial to prevent wounds infectionR ecommend diabetic extra-dept h wide shoe gear [id number] Donovan Cardenas MD [facility] [address] [address] 07/13/2024 16:22:23 07/13/2024 16:59:26 Cellulitis of left lower limb 7411730286 7444557 L03.968 [id number] Demetrius Negron DPM [facility] [place] [address] [place] [address] 07/22/2024 16:11:24 07/23/2024 11:36:40 Ulcer of toe 416139438 L97.509 left 5th toe 0.3x0.3x0. 3cmxray neg for erosive changes to the 5th toewound care dailyMonit or for signs of infection present seek medical attention immediatel yFollow-up 1 week Skin eschar 949049108 R2 3.4 multiple left lower leg removed with healed wounds with 1 remaining woundas above Open wound of left lower leg 6202489046 8229197 S81.802A wound to level of dermiswoun d debrided todaywound care dailyMonit or for infection at present seek medical attention immediatel yPatient had mild compressio n dressing applied to lower leg to reduce swelling and allow healing Peripheral venous insufficiency I87.2 bilateral lower legs worse to the leftwill need mild compressio n, chronic daily [id number] Demetrius Negron DPM [facility] Pod[facility] [place] [address] [address] 08/04/2024 17:00:02 08/24/2024 11:53:11 Ulcer of toe 483654504 L97.509 left 5th toe 0.3x0.3x0. 3cmxray neg for erosive changes to the 5th toewound care dailyMonit or for signs of infection present seek medical attention immediatel yFollow-up 1 week Open wound of left lower leg 6418913663 6645364 S81.802A wound to level of dermiswoun d debrided todaywound care dailyMonit or for infection at present seek medical attention immediatel yPatient had mild compressio n dressing applied to lower leg to reduce swelling and allow healing Skin eschar 127672496 R2 3.4 multiple left lower leg removed with healed wounds with 1 remaining woundas above Peripheral venous insufficiency 43575616 I87.2 bilateral lower legs worse to the leftwill need mild compressio n, chronic daily [id number] Demetrius Negron DPM [facility] Pod[facility] [place] [address] [address] 08/13/2024 16:27:12 08/17/2024 10:24:06 Ulcer of toe 277360229 L97.509 left 5th toeOffload ing at all times discuss special shoes with new pre-style toe box patient has not obtained it continues narrow toe box shoe gearwound care dailyMonit or for signs of infection present seek medical attention immediatel yFollow-up 1 week-wound care Open wound of left lower leg 9542553210 7917571 S81.802A wound to level of dermiswoun d care daily mild compressio n dressing appliedMon itor for infection at present seek medical attention immediatel y Peripheral venous insufficiency 02611848 I87.2 bilateral lower legs worse to the leftwill need mild compressio n, chronic daily [id number] Demetrius Negron DPM [facility] [address] [place] [address] 08/19/2024 16:23:20 08/19/2024 19:38:14 Open wound of left lower leg 1072949787 4097131 S81.802A wound to level of subcuwound care daily mild compressio n dressing appliedMon itor for infection at present seek medical attention immediatel y Ulcer of toe 631560249 L 97.509 left 5th toeOffload ing at all times discuss special shoes with new pre-style toe box patient has not obtained it continues narrow toe box shoe gearwound care dailyMonit or for signs of infection present seek medical attention immediatel yFollow-up 1 week-wound care Peripheral venous insufficiency 82472328 I87.2 bilateral lower legs worse to the leftwill need mild compressio n, chronic daily [id number] [facility] [address] [place] [address] 08/26/2024 16:30:18 08/26/2024 17:03:41 Open wound of left lower leg 2228462024 0580980 S81.802D wound to level of subcuwound care daily mild compressio n dressing appliedMon itor for infection at present seek medical attention immediatel y Ulcer of toe 082907664 L 97.509 left 5th toewound debrided todayOfflo ading at all times discuss special shoes with new pre-style toe box patient has not obtained it continues narrow toe box shoe gearwound care dailyMonit or for signs of infection present seek medical attention immediatel yFollow-up 1 week-wound care Peripheral venous insufficiency 26342183 I87.2 bilateral lower legs worse to the leftwill need mild compressio n, chronic daily [id number] Donovan Cardenas MD [facility] Internal Med [facility] [address] [facility] [place] [address] 08/31/2024 16:27:19 08/31/2024 17:04:12 Coronary arteriosclerosis 10554027 I25.10 Essential hypertension 30542502 I10 Hypercholesterolemia 136 81806 E78.00 Peripheral vascular disease 919963217 I73.9 Type 2 lucinda betes mellitus without complication 840192212 E11.9 Administra tion of influenza vaccine 81164639 Z23 Administra tion of pneumococcal vaccine 42184693 Z23 Cellulitis of upper limb 630536072 L03.059 [id number] Demetrius Negron DPM [facility] [address] [place] [address] 09/02/2024 16:16:47 09/02/2024 17:04:17 Open wound of left lower leg 0803488984 6257879 S81.802D wound to level of subcu- continued healingwou nd care daily mild compressio n dressing appliedMon itor for infection at present seek medical attention immediatel y Pressure i njury of toe of left foot stage II 4639097758 76458 L89.892 left 5th toe and 4th toeOffload ing at all times discuss special shoesconti nue gentamicin dressingsw ound care dailyMonit or for signs of infection present seek medical attention immediatel yFollow-up 1 week-wound care Peripheral venous insufficiency 02200269 I87.2 bilateral lower legs worse to the leftwill need mild compressio n, chronic daily [id number] Demetrius Negron DPM [facility] [address] [place] [address] 09/09/2024 16:32:17 09/10/2024 12:32:27 Open wound of left lower leg 7187303205 1689389 S81.802D wound to level of subcu- continued healingwou nd care daily mild compressio n dressing appliedMon itor for infection at present seek medical attention immediatel y Peripheral venous insufficiency 47926177 I87.2 bilateral lower legs worse to the leftwill need mild compressio n, chronic daily Pressure i njury of toe of left foot stage II 6421781943 40939 L89.892 left 5th toe and 4th toeOffload ing at all times discuss special shoes with new pre-style toe box patient has not obtained it continues narrow toe box shoe gearcontin ue gentamicin dressingsw ound care dailyMonit or for signs of infection present seek medical attention immediatel yFollow-up 1 week-wound care [id number] Demetrius Negron DPM [facility] [address] [place] [address] 09/16/2024 16:32:50 09/16/2024 17:24:58 Open wound of left lower leg 4734373591 5566319 S81.802D wound to level of subcu- continued healingwou nd care daily mild compressio n dressing appliedMon itor for infection at present seek medical attention immediatel y Pressure i njury of toe of left foot stage II 7364832750 22787 L89.892 left 5th toe and 4th toeOffload ing at all times discuss special shoes with new pre-style toe box patient has not obtained it continues narrow toe box shoe gearcontin ue gentamicin dressingsw ound care dailyMonit or for signs of infection present seek medical attention immediatel yFollow-up 1 week-wound care Peripheral venous insufficiency 16308761 I87.2 bilateral lower legs worse to the leftwill need mild compressio n, chronic daily [id number] Donovan Cardenas MD [facility] [place] [address] [facility] [place] [address] 01/04/2025 16:13:46 01/04/2025 17:10:13 Coronary arteriosclerosis 10284881 I25.10 Essential hypertension 89545894 I10 Hypercholesterolemia 136 48803 E78.00 Gastroesop hageal reflux disease without esophagitis 308852481 K21.9 Health Concerns Section Related Observation LastModified by Organization Detai ls LastModified Time None Recorded Concern Status LastModified by Organization Details LastModified Time None Recorded Advance Directives Directive Y: Payers Encounter Date Sequence Insurance Name Policy Number Policy León Covered Member ID León Member ID Guarantor Name 08/31/2024 1 [facility] (MEDICARE REPLACEMENT/A DVANTAGE - HMO) [id number] Evy Avila [id number] Evy Avila 09/02/2024 1 [facility] (MEDICARE REPLACEMENT/A DVANTAGE - HMO) [id number] Evy Avila [id number] Evy Avila 09/09/2024 1 [facility] (MEDICARE REPLACEMENT/A DVANTAGE - HMO) [id number] Evy Avila [id number] Evy Avila 09/16/2024 1 [facility] (MEDICARE REPLACEMENT/A DVANTAGE - HMO) [id number] Evy Avila [id number] Evy Avila 01/04/2025 1 [employer] (MEDICARE REPLACEMENT/A DVANTAGE - PPO) Evy Avila [id number] Evy Avila Notes Date Note Type Note Provider Name and Address Organization Details Recorded Time text/html Patient Name: Evy MillerGayate Of Service: Saturday ( 08.31.2024 ): 1940 [...] Systemic Symptoms:none Medication Reconciliation: from medication list. Yioeivsfwcj54/31/2023: Bone density scan shows osteoporosis of the [...] flow lower extremities above the knee bilaterally. Vnyh-kb-ulhkbxfd disease in the lower extremities bilaterally. Flow [...] BOOSTER MODERNA( ) 2024-08 PREVNAR 20 Surgical Miwytmf6450-92 Right Leg Gjucj1513-88 Left Leg Fpniqxroyns0297-28 Achalasia Kydtgci2805-28 Lap Yyuhzjeurjymxkf0613-04 DCGO7139-41 Lumbar Dmagbtgeolu7040-65 Vein Stripping Preventative Testing( ) 07/03/2024 Optometry( ) 06/30/2024 Albumin 3.5 G/DL( ) 03/03/2024 HAIC 5.9 %( ) 02/06/2024 Upper Endoscopy( ) 10/16/2023 Micro Albumin 11.2 MG/L N( ) 12/25/2022 Mammogram 12/25/2024( ) 12/25/2022 DEXA Scan 12/25/2024( ) 02/17/2019 Ophthalmology( ) 12/05/2015 Colonoscopy (5 Years) 12/05/2020 Social HistoryWidowedDoes not smokeDoes not drinkWorks as domestic radiological engineer Family HistoryMother 75 from CADFather 64 [place] [...] 5.9 4.0-6.0 % Donovan Cardenas MD [address] [place] [address], [place], [address], [facility] [employer] 08/31/2024 17:01:01 4 text/html . Patient is [...] nausea or vomiting. Demetrius Negron DPM [address], [address], [place], [address], [employer] [facility] 09/10/2024 09:50:24 4 text/html . Patient is [...] Negron DPM [address], [place], [address], [employer] 09/10/2024 09:51:51 4 text/html . Patient is [...] Negron DPM [address], [place], [address], [employer] [facility] [employer] [facility] 09/26/2024 15:13:37 5 text/html Patient Name: Evy Nguyenyvonne Of Service: Saturday ( 01.04.2025 ): 1940 [...] Systemic Symptoms:none Medication Reconciliation: from medication list. Htvlnliluke71/11/2023: EH screenings of the lower extremities demonstrated borderline left severe peripheral vascular disease on the right which was known. 09-20-2023: Doppler normal arterial flow lower extremities above the knee bilaterally. Bpzz-ks-uninoeqy disease in the lower extremities bilaterally. Flow [...] [employer]( ) 2024-08 PREVNAR 20 Surgical Spinxph7411-66 Right Leg Cjgtj2164-64 Left Leg Fdsplnruosf0528-62 Achalasia Asboyyt6361-49 Lap Tnrrnjvwbtlprjq4913-86 DNYE1397-42 Lumbar Oarfxuizwki9227-37 Vein Stripping Preventative Testing( ) 07/03/2024 Optometry( ) 06/30/2024 Albumin 3.5 G/DL( ) 03/03/2024 HAIC 5.9 %( ) 02/06/2024 Upper Endoscopy( ) 10/16/2023 Micro Albumin 11.2 MG/L N( ) 12/25/2022 Mammogram( ) 12/25/2022 DEXA Scan 12/25/2024( ) 02/17/2019 Ophthalmology( ) 12/05/2015 Colonoscopy (5 Years) 12/05/2020 Social HistoryWidowedDoes not smokeDoes not drinkWorks as domestic radiological engineer Family HistoryMother 75 from CADFather 64 CA [...] 5.9 4.0-6.0 % Donovan Cardenas MD [address] [facility], [address], [place], [address], [place] [facility] Kiwi Crate 01/04/2025 17:05:43 OBGyn Episode No OBEpisode recorded.
--- OUTSIDE RECORDS SUMMARY | 2025-05-05 13:56 | XMS_ITS | CONTINUITY OF CARE DOCUMENT ---
Author Name ladi bledsoe Address Unknown Organization [facility] Address [address] [address] [place] [address] Phone [phone] Care Team Providers Care Division Superintendent Name Role Phone Cachorro NICHOLS, Dutch Unavailable FREDDIE NICHOLS, DONOVAN Unavailable DONOVAN FRAZIER MD Unavailable PROBLEMS Condition Status Date Provider Notes SPINAL STENOSIS active Vania Smith CAD-09/[id number],SVG-O M1 ,SVG-OM2,SVG-D1,SVG-PDA completed - Javan Finney MD DIABETES MELLITUS completed - Dutch Ivory MD RENNER'S CYST completed - Dutch Ivory MD PVD s/p stent to distal R SF A 2014 active Dutch Ivory MD HTN; NEG DUPLEX & US completed - Dutch Ivory MD CAROTID ARTERY DISEASE;NEG DUPLEX 2009 completed - Dutch Ivory MD Hyperlipidemia active Leana Ruano RN CARDIOMYOPATHY;EF 35%-40% completed 0 11/25 - Dutch Ivory MD SLEEP APNEA;NEG SLEEP STUDY 2009 completed - Dutch Ivory MD LOW HDL completed - Dutch Ivory MD HYPERTRIGLYCERIDEMIA completed - Dutch Ivory MD OBESITY;WILL CONSIDER MEDIFAST completed - uDtch Ivory MD DYSMETABOLIC SYNDROME completed - Dutch Ivory MD Family History Coronary Hear t Disease female < 65: completed - Dutch Ivory MD Diabetes Mellitus, Type II, controlled w/ vascular complications active ? Dutch Ivory MD CAD s/p CABG - SWIFT patent, other grafts occluded, diffuse distal dz ef 45% active Dutch Ivory MD Essential Hypertension active Dutch Ivory MD Renal disease, chronic, mild active Dutch Ivory MD Cardiomyopathy, EF 35-40%, mild , 07/2024 active Karson Olguin Pneumonia completed - Dutch Ivory MD Diabetes Mellitus, Type II, controlled w/ vascular complications completed - Dutch Ivory MD COVID-19 vaccination completed - Karson Olguin 1 of 2 doses as of 02/27/21 Peripheral vascular disease (PVD)--geoff R pop stenosis, occlud. L SENIOR SQL DATABASE DEVELOPER, retrograde flow, patent stent RSFA. 02/2023 active Dutch Ivory MD Claudication bilateral active Dutch Ivory MD ENCOUNTERS Date Type Provider Location Encounter Diag nosis - In-person encounter Office Visit Dutch Ivory MD [facility] - In-person encounter Office Visit Dutch Ivory MD [facility] Cardiomyopathy, EF 35-40%, mild , OVID-19 vaccination - In-person encounter Office Visit Dutch Ivory MD [facility] - In-person encounter Office Visit Petar Franco MD [facility] - In-person encounter Office Visit Dutch Ivory MD [facility] Cardiomyopathy, EF 35-40%, mild , 07/2024 - In-person encounter Office Visit Petar Franco MD [facility] - In-person encounter Office Visit Dutch Ivory MD [facility] Claudication bilateral - In-person encounter Office Visit Dutch Ivory MD [facility] - In-person encounter Office Visit Dutch Ivory MD [facility] - In-person encounter Office Visit Dutch Ivory MD [facility] - In-person encounter Office Visit Petar Franco MD [facility] - In-person encounter Office Visit Dutch Ivory MD [facility] Peripheral vascular disease (PVD)--geoff R pop stenosis, occlud. L SENIOR SQL DATABASE DEVELOPER, retrograde flow, patent stent RSFA. 02/2023 - In-person encounter Office Visit Dutch Ivory MD [facility] PVD s/p stent to distal R SFA 2015CAD s/p CABG - SWIFT patent, other grafts occluded, diffuse distal dz ef 45%Cardiomyopathy, EF 35-40%, mild , 07/2024 - In-person encounter Office Visit Dutch Ivory MD [facility] Cardiomyopathy, EF 35-40%, mild , 07/2024 - In-person encounter Office Visit Dutch Ivory MD [facility] Cardiomyopathy, EF 35-40%, mild , 07/2024 - In-person encounter Office Visit Dutch Ivory MD [facility] Diabetes Mellitus, Type II, controlled w/ vascular complications - In-person encounter Office Visit Dutch Ivory MD [facility] Pneumonia - In-person encounter Office Visit Dutch Ivory MD [facility] - In-person encounter Office Visit Dutch Ivory MD [facility] - In-person encounter Office Visit Dutch Ivory MD [facility] - In-person encounter Office Visit Dutch Ivory MD [facility] - In-person encounter Office Visit Dutch Ivory MD [facility] - In-person encounter Office Visit Dutch Ivory MD [facility] HTN; NEG DUPLEX & USCAROTID ARTERY DISEASE;NEG DUPLEX 2010CARDIOMYOPATHY;EF 35%-40%SLEEP APNEA;NEG SLEEP STUDY 2010CAD s/p CABG - SWIFT patent, other grafts occluded, diffuse distal dz ef 45%Essential HypertensionRenal disease, chronic, mildCardiomyopathy, EF 35-40%, mild , 07/2024 - In-person encounter Office Visit Dutch Ivory MD [facility] - In-person encounter Office Visit Dutch Ivory MD [facility] - In-person encounter Office Visit Petar Franco MD [facility] PVD s/p stent to distal R SFA 2014 - In-person encounter Office Visit Dutch Ivory MD [facility] DIABETES MELLITUSBAKER'S CYSTHyperlipidemiaCARDIOMYO MARKELL;EF 35%-40%LOW HDLHYPERTRIGLYCERIDEMIAOBES ITY;WILL CONSIDER MEDIFASTDYSMETABOLIC SYNDROMEFamily History Coronary Heart Disease female < 65: - In-person encounter Office Visit Dutch Ivory MD [facility] Diabetes Mellitus, Type II, controlled w/ vascular complications - In-person encounter Office Visit Dutch Ivory MD [facility] - In-person encounter Office Visit Dutch Ivory MD [facility] - In-person encounter Office Visit Dutch Ivory MD [facility] - In-person encounter Office Visit Dutch Ivory MD [facility] - In-person encounter Office Visit Dutch Ivory MD [facility] - In-person encounter Office Visit Dutch Ivory MD [facility] - In-person encounter Office Visit Dutch Ivory MD [facility] - In-person encounter Office Visit Dutch Ivory MD [facility] CARDIOMYOPATHY;EF 35%-40% - In-person encounter Office Visit Dutch Ivory MD [facility] - In-person encounter Office Visit Javan Finney MD [facility] [id number],SVG- OM1,SVG-OM2,SVG-D1,SVG-PDAP VD s/p stent to distal R SFA 2015HTN; NEG DUPLEX & USHyperlipidemiaCARDIOMYOPA THY;EF 35%-40% - In-person encounter Office Visit Dutch Ivory MD [facility] - In-person encounter Office Visit Dutch Ivory MD [facility] HTN; NEG DUPLEX & US - In-person encounter Office Visit Dutch Ivory MD [facility] - In-person encounter Office Visit Dutch Ivory MD [facility] VITAL SIGNS Date Observation Value Provider [...] blood pressure, cuff size regular [facility] E&M 59 [in_i] [facility] Body Mass Index (Ratio) 21.21 kg/m2 Nate [...] MD blood pressure, cuff size regular Roman jsoe blood pressure, diastolic 61 mm[Hg] Roman rret [...] verna Lakhani oxygen saturation, oximetry 97 % Shawna Lakhani weight E&M 110 [lb_av] Shawna Lakhani [...] penny pulse rate 96 /min Zenia Daria [facility] weight E&M 121 [lb_av] Zenia Gruenenfe er height E&M 59 [in_i] Zenia Gruenenfe [facility] Body Mass Index (Ratio) 25.32 kg/m2 Nate Ivory MD blood pressure, diastolic 77 mm[Hg] Li nkLogalan blood pressure, systolic 131 mm[Hg] Yeni kLog pulse rate 18 /min Shawna Lakhani blood pressure, cuff size regular cari Lakhani blood pressure, diastolic 77 mm[Hg] Sherman Lakhani blood pressure, systolic 131 mm[Hg] Tricia Lakhani oxygen saturation, oximetry 96 % Shawan Lakhani respiratory rate E&M 18 /min Shawna Lakhani weight E&M 125.4 [lb_av] Shawna Lakhani height E&M 59 [in_i] Shawna Lakhani Body Mass Index (Ratio) 26.05 kg/m2 Nate Ivory MD blood pressure, diastolic 59 mm[Hg] St tayla Christiano blood pressure, systolic 129 mm[Hg] Sta rsoemary Christiano oxygen saturation, oximetry 95 % Maria [...] Magdalena Barriga height E&M 59 [in_i] Magdalena Lund Body Mass Index (Ratio) 28.64 kg/m2 Nate [...] Chastit y Richard weight E&M 147 [lb_av] [facility]&M 59 [in_i] [facility] Body Mass Index (Ratio) 30.09 [...] V oss pulse rate 92 /min April Kishan weight E&M 137 [lb_av] April Kishan height [...] er height E&M 59 [in_i] Zenia Huff [facility] Body Mass Index (Ratio) 29.28 kg/m2 Nate [...] Allan Body Mass Index (Ratio) 29.89 kg/m2 [facility] weight E&M 148 [lb_av] Edilia Allan blood pressure, diastolic 72 mm[Hg] Wy elias Allan blood pressure, systolic 121 mm[Hg] Vanessa stringer Allan pulse rate 88 /min Edilia Allan oxygen saturation, oximetry 94 % Edilia Allan respiratory rate E&M 16 /min Edilia Allan Body Mass Index (Ratio) 29.69 kg/m2 [facility] weight E&M 147 [lb_av] Edilia Allan blood pressure, diastolic 70 mm[Hg] Wy elias Iqbal blood pressure, systolic 126 mm[Hg] [...] Allan Body Mass Index (Ratio) 29.49 kg/m2 [facility] pulse rate 88 /min Edilia Allan oxygen saturation, oximetry 94 % Edilia Allan respiratory rate E&M 14 /min Edilia Allan weight E&M 146 [lb_av] Edilia Allan Body Mass Index (Ratio) 29.08 kg/m2 Margauxa everardo [facility] blood pressure, diastolic 80 mm[Hg] An kimberlyris Robby blood pressure, systolic 137 mm[Hg] Ane atris [facility] pulse rate 77 /min Aneatris [facility] oxygen saturation, oximetry 95 % Margauxatris [facility] respiratory rate E&M 18 /min Aneatri s [facility] weight E&M 144 [lb_av] Aneatris [facility] Body Mass Index (Ratio) 27.87 kg/m2 Bassam mcgee [facility] blood pressure, diastolic 80 mm[Hg] An alena [facility] blood pressure, systolic 137 mm[Hg] Ane atris [facility] pulse rate 80 /min [facility] oxygen saturation, oximetry 98 % [facility] rate E&M 16 /min Aneatri s [facility] weight E&M 138 [lb_av] [facility] Body Mass Index (Ratio) 23.92 kg/m2 Yonatan [...] Eleno king [place] pulse rate 90 /min [facility] oxygen saturation, oximetry 98 % [facility] respiratory rate E&M 16 /min [facility] weight E&M 135 [lb_av] Naren [facility] blood pressure, diastolic 63 mm[Hg] Braga blood [...] height E&M 60 [in_i] Patrick Diaz geovani INTERNATIONAL TRADE COMPLIANCE MANAGER weight E&M 147 [lb_av] Macy Garcianard height E&M 60 [in_i] Macy Carrasco [...] Naren [place] oxygen saturation, oximetry 98 % Anren [place] respiratory rate E&M 16 /min Naren [...] mg/dL Raul Fu creatinine, serum 0.87 mg/dL [facility] urea nitrogen, blood 8 mg/dL jason Fu potassium, serum 3.9 mmol/L [facility] Fu sodium, serum 140 mmol/L [facility] Fu platelet count 316 10*3/mm3 jason Fu hematocrit, blood 43.5 % jason Fu alanine aminotransferase (SGPT), serum 38 1/L [facility] Fu aspartate aminotransferase (SGOT), serum 46 1/L [facility] creatinine, serum 1.04 mg/dL [facility] Fu potassium, serum 4.0 mmol/L [facility] Fu sodium, serum 141 mmol/L [facility] Fu hemoglobin A1C, blood, as % of total hemoglobin 6.8 % jason Fu triglyceride, serum, fasting 170 mg/dL jason Fu HDL cholesterol, serum 27 mg/dL jasno Fu LDL cholesterol, serum 77 mg/dL [facility] Fu cholesterol, serum 138 mg/dL [facility] Fu yeast identified on urinalysis No [...] dipstick Negative Raul Fu bilirubin, urine Negative [facility] ketones, urine, by test strip Negative Raul Fu glucose, urine, semiquantitative Normal [facility] protein, urine, semiquantitative (dipstick) Negative [facility] pH, urine, semiquantitative 5.0 [facility] specific gravity, urine 1.015 [facility] urine color Pale Yellow [facility] appearance, urine Hazy [facility] Vitamin D, 25 Hydroxy D3 7 ng/mL [facility] Vitamin D, 25 Hydroxy D2 74 ng/mL [facility] platelet count 298 10*3/uL [facility] red blood cell distribution width 12.4 % [facility] mean corpuscular hemoglobin concentration, RBC 33.5 g/dL [facility] mean corpuscular hemoglobin, RBC 31.5 pg [facility] mean corpuscular volume, RBC 94.[address] [facility] hematocrit, blood 43.3 % [facility] hemoglobin, blood 14.5 g/dL [facility] erythrocyte (RBC) count 4.60 10*6/mm3 [facility] leukocyte count, blood 5.9 10*3/mm3 [facility] anion gap, serum 10.6 [facility] globulins, serum, total 3.0 g/dL [facility] estimated glomerular filtration rate 44 mL/min [facility] albumin/globulin ratio, serum 1.4 [facility] protein, total, serum 7.1 g/dL [facility] albumin, serum 4.1 g/dL [facility] bilirubin, serum, total 0.39 mg/dL [facility] alkaline phosphatase, serum 62 1/L [facility] alanine aminotransferase (SGPT), serum 33 1/L [facility] aspartate aminotransferase (SGOT), serum 24 1/L [facility] calcium, serum 9.3 mg/dL [facility] blood glucose, fasting 100 mg/dL [facility] creatinine, serum 1.28 mg/dL [facility] urea nitrogen, blood 15.3 mg/dL [facility] carbon dioxide, serum, total 30 mmol/L [facility] chloride, serum 100 mmol/L [facility] potassium, serum 3.6 mmol/L [facility] sodium, serum 137 mmol/L [facility] cholesterol/HDL ratio, serum, percent 4.5 (calc) [employer] [...] Lacretia Craig NP anion gap, serum 10.9 [facility] estimated glomerular filtration rate 43 mL/min [facility] calcium, serum 9.2 mg/dL [facility] blood glucose, fasting 166 mg/dL [facility] creatinine, serum 1.30 mg/dL [facility] urea nitrogen, blood 18.8 mg/dL [facility] carbon dioxide, serum, total 32 mmol/L [facility] chloride, serum 101 mmol/L [facility] potassium, serum 3.9 mmol/L [facility] sodium, serum 140 mmol/L [facility] prothrombin time (patient) 10.7 s [facility] international normalized ratio (INR) 1.0 [facility] platelet count 284 10*3/uL [facility] red blood cell distribution width 12.4 % [facility] mean corpuscular hemoglobin concentration, RBC 33.3 g/dL [facility] mean corpuscular hemoglobin, RBC 30.6 pg [facility] mean corpuscular volume, RBC 91.9 fL [facility] hematocrit, blood 44.2 % [facility] hemoglobin, blood 14.7 g/dL [facility] erythrocyte (RBC) count 4.81 10*6/mm3 [facility] monocytes as percent of blood leukocytes 8.8 % [facility] lymphocytes as percent of blood leukocytes 29.5 % [facility] leukocyte count, blood 5.5 10*3/mm3 [facility] alanine aminotransferase (SGPT), serum 20 1/L [employer] [...] Normal Absolute Neutrophil count 3003 cells/mcL [employer] [id number] Normal platelet count 368 THOUSAND/UL [employer] 140-400 [...] 1 tablet every night as needed - Dutch Ivory MD pentoxifylline 400 mg tablet extended release completed Take 1 tablet once a day - Kevin Ramirez ICOSAPENT 1GM CAP completed Take 2 capsules by mouth twice daily - Dutch Ivory MD Repfarideh SureClick 140 mg/mL pen injector completed Inject 14 mg every two weeks - Karson Olguin [facility] [id number] -02 PRAVASTATIN SODIUM 20 MG ORAL TABLET [...] 20 MG ORAL TABLET completed ONE TAB. [id number] - Chastity Richard vitamin E (dl, acetate) [...] completed take one pill a day - Zenai Chinchilla potassium chloride 20 mEq packet completed [...] day - Ariadne Baca VITAMIN D (ERGOCALCIFEROL) 56203 UNIT ORAL CAPSULE completed once a week - Zenia Chinchilla FLAX SEED OIL CAPSULE completed 1 capsule by mouth daily - Ariadne Baca CALCIUM 600-D TABLET completed 2 tablets by mouth daily - Ariadne Baca ACID GAS LINE INSTALLER SUPERVISOR TABLET completed 150mg 1tablet by mouth once [...] E&M revi ewed - no changes required Petra Franco MD social history E&M Lives with [...] E&M revi ewed - no changes required Mari Pimentel-Jj smoking status Never smoker Shawna Olson in INTERNATIONAL TRADE COMPLIANCE MANAGER social history reviewed E&M revi ewed - [...] no April Kishan smoking status Never smoker [facility] social history reviewed E&M revi [...] f requency, days per week yes Edilia Casillasann alcohol use, average drinks per day none [...] Ivory MD smoking status never Lacretia Prashant li INTERNATIONAL TRADE COMPLIANCE MANAGER social history reviewed E&M reviewed Patrick Craig INTERNATIONAL TRADE COMPLIANCE MANAGER social history reviewed E&M reviewed Javan Finney [...] (inactive) Management Plan continue current therapy Dutch vIory MD HRA, CV Assess/Plan, Angina (inactive) Management [...] MD FAMILY HISTORY Family Member Condition Mother [place] female <65 Father Family History of Ot her Cancer Mother Family History Coron quynh Heart Disease female < 65: INSURANCE PROVIDERS Payer name Policy type / Coverage type Iredell red democrat ID HU[employer] PPO O [id number] ADVANCE DIRECTIVES Name Date DISCUSSED - NO DECISION MADE TREATMENT PLAN Date Name Performer [id number],S, H er updated medication list for this problem includes: Nexletol 180 Mg Tablet (Bempedoic acid) ..... Take 1 tablet by mouth once a day Petar Franco MD [id number],C, I have no reason to believe that her symptoms are due to PVD because her GEOFF showed good flow in the areas that were angioplastied. S he has a TENS unit which provides some relief Petar Franco MD [id number],C, S table, no angina Petar Franco MD [id number],S, Karson Naik i [id number],S, Karson Naik i [id number],S, Karson Naik i [id number],S, Karsonhyacinth Naik i [id number],S, Karson Naik i [id number],S, Karson Naik i [id number],S, Karson Naik i [id number],S, Petar Franco MD [id number],C, B P today: 122/80 P rior BP: 131/77 (02/05/2023) Prior 10 Yr Risk Heart Disease: N/A (09/27/2010) Labs Reviewed: C reat: 0.87 (12/09/2013) C hol: 227 (01/29/2020) HDL: 37 (01/29/2020) LDL: * mg/dL (calc) (01/29/2020) T (01/29/2020) Petar Franco MD [id number],C,s /p R SENIOR SQL DATABASE DEVELOPER pop. She is doing fine. She is c/o of knee pain but she does have OA. She will f/u with Dr. Ivory in 3 months Petar Franco MD [id number],S, Karson Naik i [id number],S, Karson Naik i [id number],S, Karson Naik i [id number],S, Karson Naik i [id number],S, Karson Naik i [id number],S, [facility] [id number],W, Karson medza i [id number],S, [facility] [id number],S, [facility] [id number],S, [facility] [id number],S, [facility] [id number],S, [facility] [id number],S, [facility] [id number],S, [facility] i [id number],S, [facility] i [id number],S, [facility] i [id number],S, [facility] [id number],S, [facility] [id number],S, [facility] i [id number],S, [facility] [id number],S, Demetrius Nacht [id number],S, Demetrius Nacht [id number],S, Demetrius Nacht [id number],S, Demetrius Nacht [id number],S, Demetrius Nacht [id number],S, Demetrius Nacht [id number],S, Demetrius Nacht [id number],S, Ilda miller [id number],S, Ilda Newsome obsmeyer [id number],S, Ilda Newsome obsmeyer [id number],S, Ilda Newsome obsmeyer [id number],S, Ilda Jerod obsmeyer [id number],S, Ilda Jerod obsmeyer [id number],S, Petar Franco MD [id number],S,V iabahn 6x50, wire lumen, popliteal. Petar Franco MD [id number],S, Petar Franco MD [id number],S, Karson Noelza i [id number],S, Karson Noelza i [id number],S, Karson Noelza i [id number],S, Karson Noelza i [id number],S, Karson Noelza i Cardiology: O rders: C OMPREHENSIVE METABOLIC PANEL, W/EGFR (82893) L IPID PANEL (7600) H EMOGLOBIN A1c (496) C BC (INCLUDES DIFF/PLT) (6399) P ROBNP, N TERMINAL (73085) Her updated medication list for this problem [...] (01/29/2020) Orders: C OMPREHENSIVE METABOLIC PANEL, W/EGFR (86374) L IPID PANEL (7600) H EMOGLOBIN A1c (496) C BC (INCLUDES DIFF/PLT) (6399) P ROBNP, N TERMINAL (42508) Dutch Ivory MD Cardiology: H er updated medication list for this problem includes: H er updated medication list for this problem includes: Clopidogrel 75 Mg Tablet (Clopidogrel) ..... Take 1 tablet once a day Dutch Ivory MD Cardiology: H er [...] day Orders: C OMPREHENSIVE METABOLIC PANEL, W/EGFR (26427) LIPID PANEL (7600) H EMOGLOBIN A1c (496) C BC (INCLUDES DIFF/PLT) (6399) P ROBNP, N TERMINAL (93254) Dutch Ivory MD Cardiology:This visi t has [...] day Orders: C OMPREHENSIVE METABOLIC PANEL, W/EGFR (81116) L IPID PANEL (7600) H EMOGLOBIN A1c (496) C BC (INCLUDES DIFF/PLT) (2799) P ROBNP, N TERMINAL (12597) Dutch Ivory MD Cardiology:This visi t has [...] ..... Take 1 tablet once a day [facility] Cardiology: H er updated medication list [...] ..... Take 1 tablet once a day [facility] Cardiology: H er updated medication list [...] ..... Take 1 tablet once a day [facility] Cardiology [facility] Cardiology: H er updated medication list [...] ..... Take 1 tablet once a day [facility] Cardiology: H er updated medication list for this problem includes: Nexletol 180 Mg Tablet (Bempedoic acid) ..... Take 1 tablet by mouth once a day [facility]: H er updated medication list for this problem includes: Metformin 1,000 Mg Tablet (Metformin) ..... 1 twice a day Amaryl 2 Mg Tablet (Glimepiride) ..... Once a day [facility] Card[facility]: B P today: 105/60 P rior BP: 100/61 (09/19/2023) Prior 10 Yr Risk Heart Disease: N/A (09/27/2010) Labs Reviewed: C reat: 0.87 (12/09/2013) C hol: 227 (01/29/2020) HDL: 37 (01/29/2020) LDL: * mg/dL (calc) (01/29/2020) T (01/29/2020) Her updated medication list for this problem includes: Spironolactone 25 Mg Tablet (Spironolactone) ..... 2 tablet once a day [facility] Cardiology: H er updated medication list [...] ..... Take 1 tablet once a day [facility]: H er updated medication list for this problem includes: Clopidogrel 75 Mg Tablet (Clopidogrel) ..... Take 1 tablet once a day [facility] Card[facility]: H er updated medication list for [...] which provides some relief Petar Franco MD Cardiology: S table, no angina [...] T (01/29/2020) Petar Franco MD Cardiology:s/p R SENIOR SQL DATABASE DEVELOPER pop. She is doing fine. She is [...] Cardiology Karson Ahmedzai Cardiology Karson Myersmedzai Cardiology Karson Myersmedzai Cardiology Karson Ahmedzai Cardiology [...] Cardiology Karson Ahmedzai Cardiology Karson Ahmedzai Cardiology Karsno Ahmedzai Cardiology Karson Ahmedzai Cardiology Karson Ahmedzai [...] Ivory MD Cardiology Dutch Ivory MD Cardiology Duthc Iovry MD Cardiology follow up - ltr done:BP [...] are patent. Ejection fraction of 45%. - [facility] (12/15/2013) C ardiac Cath Comments: Successful multivessel, multilesion, complex coronary artery stenting requiring 3 dilatations and tosha wires. 2.5 x 18mm Promus & 2.0 x 12mm Vision stent. [facility] (05/11/2010) C arotid Doppler/Duplex: Normal [...] PT: 10.7 (04/14/2010) INR: 1.0 (12/09/2013) Dutch vIory MD Follow up: H er updated medication [...] a candidate for intervention of her circumflex. [facility] (04/18/2010) C ardiac Cath Comments: Successful multivessel, multilesion, complex coronary artery stenting requiring 3 dilatations and tosha wires. 2.5 x 18mm Promus & 2.0 x 12mm Vision stent. [facility] (05/11/2010) C arotid Doppler/Duplex: Normal [...] the medication list: Lovaza 1 Gm Caps (Grpcs-6-yfpq ethyl esters) ..... 2 capsules twice daily [...] medication list: Ascriptin 325 Mg Tabs (Aspirin buf(wfjkb-kexzw-thbls)) ..... 1 tab by mouth daily Her [...] ..... 1/2 tab daily Orders: E KG (CPT-33612) BP today: 116/66 Prior BP: 118/74 (12/11/2011) [...] a candidate for intervention of her circumflex. [facility] (04/18/2010) C ardiac Cath Comments: Successful multivessel, multilesion, complex coronary artery stenting requiring 3 dilatations and tosha wires. 2.5 x 18mm Promus & 2.0 x 12mm Vision stent. [facility] (05/11/2010) C arotid Doppler/Duplex: Normal [...] One tab. daily Lovaza 1 Gm Caps (Utdip-7-gplp ethyl esters) ..... 2 capsules twice daily [...] Once daily Ascriptin 325 Mg Tabs (Aspirin buf(pudgi-fbqkp-vajen)) ..... 1 tab by mouth daily Spironolactone [...] a candidate for intervention of her circumflex. [facility] (04/18/2010) C ardiac Cath Comments: Successful multivessel, multilesion, complex coronary artery stenting requiring 3 dilatations and tosha wires. 2.5 x 18mm Promus & 2.0 x 12mm Vision stent. [facility] (05/11/2010) C arotid Doppler/Duplex: Normal [...] One tab. daily Lovaza 1 Gm Caps (Hyabb-2-pdgn ethyl esters) ..... 2 capsules twice daily [...] MD follow up: O rders: E KG (CPT-56814) Dutch Ivory MD follow up: H er updated medication list for this problem includes: Aspirin 325 Mg Tabs (Aspirin) ..... One tab. daily Furosemide 20 Mg Tabs (Furosemide) ..... 1 tablet by mouth daily Lisinopril 5 Mg Tabs (Lisinopril) ..... One tab. daily Effient 10 Mg Tabs (Prasugrel hcl) ..... Once daily Ascriptin 325 Mg Tabs (Aspirin buf(jozeq-izxnl-yvahl)) ..... 1 tab by mouth daily Spironolactone [...] a candidate for intervention of her circumflex. [facility] (04/18/2010) C ardiac Cath Comments: Successful multivessel, multilesion, complex coronary artery stenting requiring 3 dilatations and tosha wires. 2.5 x 18mm Promus & 2.0 x 12mm Vision stent. [facility] (05/11/2010) C arotid Doppler/Duplex: Normal [...] Once daily Ascriptin 325 Mg Tabs (Aspirin buf(erokk-jiicu-tybnv)) ..... 1 tab by mouth daily B [...] a candidate for intervention of her circumflex. [facility] (04/18/2010) C ardiac Cath Comments: Successful multivessel, multilesion, complex coronary artery stenting requiring 3 dilatations and tosha wires. 2.5 x 18mm Promus & 2.0 x 12mm Vision stent. [facility] (05/11/2010) C arotid Doppler/Duplex: Normal [...] One tab. daily Lovaza 1 Gm Caps (Vcakt-9-lnaw ethyl esters) ..... 2 capsules twice daily dispense as written Trilipix 135 Mg Cpdr (Choline fenofibrate) ..... Take one daily Crestor 10 Mg Tabs (Rosuvastatin calcium) ..... Every other day Javan Finney MD hosp f/u: O rders: C omplete Echo (CPT-05917) M UGA (LVEF) (CPT-84386) Javan Finney MD hosp f/u: H er updated medication list for this problem includes: Zetia 10 Mg Tabs (Ezetimibe) ..... One tab. daily Aspirin 325 Mg Tabs (Aspirin) ..... One tab. daily Lovaza 1 Gm Caps (Kpoem-3-bpkt ethyl esters) ..... 2 capsules twice daily dispense as written Trilipix 135 Mg Cpdr (Choline fenofibrate) ..... Take one daily Lisinopril 5 Mg Tabs (Lisinopril) ..... One tab. daily Effient 10 Mg Tabs (Prasugrel hcl) ..... Once daily Crestor 10 Mg Tabs (Rosuvastatin calcium) ..... Every other day Orders: C omplete Echo (CPT-77485) M UGA (LVEF) (CPT-52388) Javan Finney MD hosp f/u: H er updated medication list for this problem includes: Zetia 10 Mg Tabs (Ezetimibe) ..... One tab. daily Aspirin 325 Mg Tabs (Aspirin) ..... One tab. daily Lovaza 1 Gm Caps (Qhari-3-pajw ethyl esters) ..... 2 capsules twice daily dispense as written Trilipix 135 Mg Cpdr (Choline fenofibrate) ..... Take one daily Lisinopril 5 Mg Tabs (Lisinopril) ..... One tab. daily Effient 10 Mg Tabs (Prasugrel hcl) ..... Once daily Crestor 10 Mg Tabs (Rosuvastatin calcium) ..... Every other day Orders: M UGA (LVEF) (CPT-22007) Javan Finney MD hosp f/u: O rders: C omplete Echo (CPT-70337) M UGA (LVEF) (CPT-04689) Javan Finney MD hosp f/u: H er updated medication list for this problem includes: Zetia 10 Mg Tabs (Ezetimibe) ..... One tab. daily Lovaza 1 Gm Caps (Jxufx-8-jgvu ethyl esters) ..... 2 capsules twice daily dispense as written Trilipix 135 Mg Cpdr (Choline fenofibrate) ..... Take one daily Crestor 10 Mg Tabs (Rosuvastatin calcium) ..... Every other day Orders: C omplete Echo (CPT-53790) M UGA (LVEF) (CPT-78981) Javan Finney MD hosp f/u: H er updated medication list for this problem includes: Aspirin 325 Mg Tabs (Aspirin) ..... One tab. daily Effient 10 Mg Tabs (Prasugrel hcl) ..... Once daily Orders: C omplete Echo (CPT-33904) M UGA (LVEF) (CPT-24772) Javan Finney MD hosp f/u: H er updated medication list for this problem includes: Aspirin 325 Mg Tabs (Aspirin) ..... One tab. daily Furosemide 20 Mg Tabs (Furosemide) ..... 1 tablet by mouth daily Lisinopril 5 Mg Tabs (Lisinopril) ..... One tab. daily Orders: C omplete Echo (CPT-91644) M UGA (LVEF) (CPT-30430) Javan Finney MD hosp f/u Javan Finney [...] arotid Doppler/Duplex: normal: (08/14/2004) Orders: E KG (CPT-49990) Dutch Ivory MD 6 month follow-up: H [...] Doppler/Duplex: normal: (08/14/2004) Orders: C omplete Echo (CPT-35666) Dutch Ivory MD Date Name PROBNP, N [...] completed EKG Dutch Ivory MD completed SNOMED-CT: [id number] Current Medications Documented Dutch Ivory MD completed SNOMED-CT: [id number] Physical Exam, Performed: Pulse Exam of Foot Dutch Ivory MD completed EKG Dutch Ivory MD completed SNOMED-CT: [id number] Current Medications Documented Dutch Ivory MD completed SNOMED-CT: [id number] Current Medications Documented Jabari Carmona MD completed SNOMED-CT: [id number] Physical Exam, Performed: Pulse Exam of Foot Dutch Ivory MD completed EKG Dutch Ivory MD completed SNOMED-CT: [id number] Current Medications Documented Dutch Ivory MD completed SNOMED-CT: 39548779 Physical Exam, Performed: Pulse Exam of Foot Dutch Ivory MD completed SNOMED-CT: [id number] Current Medications Documented Dutch Ivory MD completed SNOMED-CT: [id number] Physical Exam, Performed: Pulse Exam of Foot Dutch Ivory MD completed EKG Dutch Ivory MD completed SNOMED-CT: [id number] Current Medications Documented Dutch Ivory MD completed EKG Dutch Ivory MD completed EKG Dutch Ivory MD completed EKG Dutch Ivory MD completed EKG Dutch Ivory MD completed EKG Dutch Ivory MD completed EKG Dutch Ivory MD completed
[2025-05-11 12:03] LABS: Fecal Fat, Ql Normal (Normal)
[2025-05-11 18:14] LABS: Calprotectin, Stool 450 mcg/g
== END 2025-05-05 11:43 | disposition home or self-care (01) ==
LOC: ANHLAB 11:43
PROVIDERS: PCP Internal Medicine; Visit Provider Nurse Practitioner Family
DX: R19.7 Diarrhea, unspecified (principal); R15.9 Full incontinence of feces
CPT/HCPCS: 82705; 83993; 87045; 87177; 87209; 87269; 87427; 87449